=== PATIENT | female | born 1965 | race Caucasian/White ===

== ENCOUNTER 2020-07-23 05:20 | Inpatient (IN) ==
--- NOTE | 2020-06-28 13:34 | PAT Medication Instructions ---
Medication Instructions Date of Service June 28, 2020 Home Medications duloxetine [Cymbalta] 30 mg PO PM duloxetine [Cymbalta] 60 mg PO QAM levothyroxine 25 mcg PO QAM meloxicam [Mobic] 15 mg PO QAM pregabalin [Lyrica] 100 mg PO 1200 pregabalin [Lyrica] 150 mg PO AMPM trazodone 50 mg PO HS ASK your surgeon for instructions meloxicam [Mobic] 15 mg PO QAM Take morning of surgery With a small sip of water, OTHERWISE NOTHING TO EAT OR DRINK AFTER MIDNIGHT: duloxetine [Cymbalta] 60 mg PO QAM levothyroxine 25 mcg PO QAM pregabalin [Lyrica] 150 mg PO AMPM Take evening before surgery duloxetine [Cymbalta] 30 mg PO PM pregabalin [Lyrica] 150 mg PO AMPM trazodone 50 mg PO HS Other Notes If you have any questions please call us at [phone] or [phone] or [phone] or [phone]
--- NOTE | 2020-07-01 07:57 | History & Physical Report ---
Date of Service July 01, 2020 date of surgery: 07/23/20 procedure: Bilateral Total Knee Arthroplasty Assessment & Plan (1) Degenerative arthritis of knee, bilateral: Risks and benefits of procedure discussed in detail today, patient would like to proceed with Bilateral total knee replacements at [facility] as scheduled. will obtain medical clearance from Dr Urrutia prior to surgery as well as obtain PATs at [facility]. Will place on Xarelto x 1 month post op, f/u 2 weeks post op for routine post-operative care and x-ray, sooner if having any problems. will make arrangements for HHPT at the time of discharge. At this point in time, has failed conservative measures and would like to proceed with surgical intervention. The risks and benefits have been discussed including, but not limited to, risk of infection, nerve injury, stiffness, loss of motion, failure to improve, etc. Reasonable outcomes and options of treatment were discussed. An explanation of appropriate alternatives to the procedure that may be advantageous were discussed and their risks and benefits, as well as the risks and benefits of not proceeding with treatment. I offered to answer any additional inquiries concerning the treatment involved. All the patient's questions were answered. The patient is agreeable, understanding of the treatment plan and alternatives, and wishes to proceed with the treatment plan. History of Present Illness Chief Complaint: bilateral knee pain Primary Care Provider: NO PCP Joyce is a 55 year old female who complains of bilateral knee pain, presents for pre-op evaluation prior to bilateral total knee replacements by dr Thomas at [facility]. she complains of pain, crepitus, decreased range of motion, instability a nd stiffness in both knees. she states that the symptoms have been chronic and non-traumatic. she states that the symptoms occur constantly with intermittent worsening. Currently the patient states that the symptoms are moderate-severe. The pain is described as aching, sharp and throbbing. The symptoms occur continuously. The symptoms are aggravated by ascending stairs, daily activities, first steps while awake walking. Prior NSAIDs include Ibuprofen and Aleve. Prior pain medications include Tylenol. she has been treated with previous visco injections in the past without much relief. she has had prior physical therapy. Allergies Allergy/AdvReac Type Severity Reaction Status Date / Time morphine Allergy Hives Verified 06/21/20 09:03 Home Medications Home Medications Medication Instructions Recorded Confirmed Type duloxetine [Cymbalta] 30 mg PO PM 06/21/20 06/21/20 History duloxetine [Cymbalta] 60 mg PO QAM 06/21/20 06/21/20 History levothyroxine 25 mcg PO QAM 06/21/20 06/21/20 History meloxicam [Mobic] 15 mg PO QAM 06/21/20 06/21/20 History pregabalin [Lyrica] 100 mg PO 1200 06/21/20 06/21/20 History pregabalin [Lyrica] 150 mg PO AMPM 06/21/20 06/21/20 History trazodone 50 mg PO HS 06/21/20 06/21/20 History Past Med/Surg History Medical History Cervical cancer in 's > hyster Chronic back pain Fibromyalgia Fusion of spine thinks it was C1-4. up and down is fine. side to side limted Hypothyroidism Osteoarthritis Seasonal allergies Seizure childhood> none since > grand mal Slow to wake up after anesthesia Temporomandibular joint disorder clicking not locking Surgical History History of colonoscopy History of hysterectomy History of tooth extraction Hx of bilateral oophorectomy Hx of eye surgery for lowering pressure in both eyes Social History Smoking Status: Former smoker Smoking End Date: nov 2019; Second Hand Exposure: No; Do You Dip or Chew Tobacco: No; Tobacco Cessation Education Requested by Patient: No Hx Alcohol Use: Yes Alcohol type: wine Hx Substance Use: No Preferred Language: Portuguese Communication Ability: Effective [employer] Media Specialist Required: No Beliefs That Will Affect Care: None Current Living Situation: Spouse Other Information That Helps Us Care for You: No Feels Safe at Home: Yes Safety Concerns: Feels Safe At This Time Review of Systems Review of Systems: All systems reviewed & are unremarkable except as noted in HPI & below Constitutional: no fever, no chills and no sweats Respiratory: no cough and no dyspnea Cardiovascular: no chest pain, no dyspnea and no orthopnea Gastrointestinal: no abdominal pain, no nausea and no vomiting Musculoskeletal: as per Subjective / HPI Physical Exam Physical Exam: Ht: 5ft 2in Wt: 85.275kg BP: 124/84 Constitutional: WD/WN, vitals as above no acute distress Respiratory: normal respiratory effort, lungs clear to auscultation no respiratory distress, no labored breathing and does not use accessory muscles Cardiovascular: RRR, no murmur, no edema Gastrointestinal (Abdomen): normal bowel sounds, soft, nontender, no hepatosplenomegaly Musculoskeletal: Bilateral knee Physical exam Overall she has varus alignment bilaterally, there is no atrophy or ecchymosis noted, +1 suprapatellar effusion in both knees, positive tenderness to both medial and lateral joint lines both knees. negative patellar apprehension, positive crepitation noted to both knees with active ROM. bilateral knees stable to valgus and varus stress, marley negative, posterior drawer negative. Range of motion right knee 0/3/110, left knee 0/3/115. lower extremities are neurovascularly intact, calf soft and non tender, DP pulse +2 bilaterally. Results & Data Results & Data ([facility]) Diagnostic Findings Bilateral Knee X-ray: bilateral knee series confirms degenerative changes bilateral knees, greatest medial compartments and patellofemoral joints, showing joint space narrowing, osteophyte formation and subchondral sclerosis. no acute bony pathology noted.
--- NOTE | 2020-07-01 12:40 | Anesthesiology Consultation ---
Date of Service July 01, 2020 Assessment & Plan (1) Encounter for pre-operative examination: COVID Status: As of 07/01 assessment, patient denies travel to endemic area, known exposure/sick contacts, or symptoms of COVID19. Patient instructed that they and their household members must follow strict social distancing guidelines, wear a mask in public and avoid travel for 14 days prior to surgery. Preoperative COVID19 testing to be completed prior to surgery per surgeon's arra ngements. Patient made aware to self-isolate as much as possible between COVID testing and surgery. Chart Review Chart Review: Acceptable Risk for Surgery (pending surgeon ordered PCP clearance 07/03) and Patient seen in Pre Admission Testing Teaching & Discussion Instructed NPO after midnight before surgery, except medications with 15 cc of water. Medication instructions provided according to the PAT guidelines. History Surgery Operation Date: 07/23/20 07:15 Proposed Procedures p Bilateral Total Knee Arthroplasty - Santos Thomas DO Height/Weight Height: 5 ft 2 in Weight: 88 kg Allergies Allergy/AdvReac Type Severity Reaction Status Date / Time morphine Allergy Hives Verified 06/21/20 09:03 Medications Home Medications Medication Instructions Recorded Confirmed Last Taken duloxetine [Cymbalta] 30 mg PO PM 06/21/20 06/21/20 Unknown duloxetine [Cymbalta] 60 mg PO QAM 06/21/20 06/21/20 Unknown levothyroxine 25 mcg PO QAM 06/21/20 06/21/20 Unknown meloxicam [Mobic] 15 mg PO QAM 06/21/20 06/21/20 Unknown pregabalin [Lyrica] 100 mg PO 1200 06/21/20 06/21/20 Unknown pregabalin [Lyrica] 150 mg PO AMPM 06/21/20 06/21/20 Unknown trazodone 50 mg PO HS 06/21/20 06/21/20 Unknown Past Medical History Medical History Cervical cancer in 20's > hyster Chronic back pain Fibromyalgia Hypothyroidism Osteoarthritis Seasonal allergies Seizure childhood> 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 Limited ROM. History of colonoscopy History of hysterectomy History of tooth extraction Hx of bilateral oophorectomy Hx of eye surgery for lowering pressure in both eyes Past Anesthesia History No Hx of Anesthesia Complications and No Family Hx of Anesthesia Complications "slow to wake," no h/o reintubation or ICU stay/prolonged stay History of PONV No Hx of PONV and No Hx of Motion Sickness Social History Smoking Status: Former smoker Do You Dip or Chew Tobacco: No Smoking End Date: nov 2019 Hx Alcohol Use: Yes Alcohol type: wine alcohol intake frequency: a few times a month Hx Substance Use: No substance use type: does not use Review of Systems Pt denies any recent chest pain, shortness of breath, palpitations, cough, fever, URI, or uncontrolled acid reflux. Physical Exam Vital Signs BP: 139/86 P: 69bpm SPO2: 98% RA T: 98.0 F R: 16 ENMT Mouth: + dentures (full upper) and + small oral opening; no chipped teeth and no loose teeth Thyromental Distance: < 3.5 Finger Breadths (3) Mallampati Class: II Neck normal visual inspection and + limited neck extension Respiratory normal respiratory effort Auscultation: lungs clear to auscultation bilaterally Cardiovascular Rate/Rhythm: regular rate and regular rhythm Heart Sounds: no murmur Extremities: no edema Testing Laboratory Results 07/01/20 12:50 07/01/20 12:50 PT 10.2 Seconds (9.0-12.0) 07/01/20 12:50 INR 1.0 (0.9-1.1) 07/01/20 12:50 APTT 26.7 Seconds (21.0-31.0) 07/01/20 12:50 Hemoglobin A1c 5.6 % (4.5-5.6) 07/01/20 12:50 Urine Color Yellow 07/01/20 12:50 Urine Appearance Clear (Clear) 07/01/20 12:50 Urine pH 5.0 (4.5-7.5) 07/01/20 12:50 Ur Specific [place] 1.019 (1.000-1.030) 07/01/20 12:50 Urine Protein Negative (Negative) 07/01/20 12:50 Urine Glucose (UA) Negative (Negative) 07/01/20 12:50 Urine Ketones Negative (Negative) 07/01/20 12:50 Urine Nitrite Negative (Negative) 07/01/20 12:50 Ur Leukocyte Esterase Negative (Negative) 07/01/20 12:50 Blood Type A Positive 07/01/20 12:50 Antibody Screen NEGATIVE 07/01/20 12:50 07/01/20 12:50 Urine Culture - Final Urine,Clean Catch Three types of organisms present, all low counts probable skin keila. No further identifications or sensitivities to follow. Electrocardiogram Date: 07/01/20 Findings: + NSR @ (66bpm) Chest X-Ray Date: 07/01/20 Findings: + NAD
--- NOTE | 2020-07-01 13:32 | XRay Report ---
XR chest Pre-admission PA/Lat CLINICAL HISTORY: Preoperative chest COMPARISON STUDY: No previous studies for comparison. FINDINGS: The cardiac and mediastinal contours are normal. There is no evidence of focal pulmonary co nsolidation. There is no evidence of failure. No pleural effusions are visualized.[Postsurgical [place] es are present within the lower cervical spine. IMPRESSION: No active disease in the chest. ACT 112: Negative or not required by law. Electronically signed by: Gilson Whittington M.D. 07/01/2020 1:31 PM
[2020-07-01 14:02] LABS: Basophils # (auto) 0.02 K/uL (0-0.2); Basophils % (auto) 0.4 %; Eosinophils # (auto) 0.07 K/uL (0-0.5); Eosinophils % (auto) 1.4 %; Hematocrit (blood only) 39.4 % (37-47); Hemoglobin 13.2 g/dL (12.0-16.0); Immature Granulocytes # (auto) 0.01 K/uL (0.00-0.02); Immature Granulocytes % (auto) 0.2 %; Lymphocytes # (auto) 1.83 K/uL (1.2-3.4); Lymphocytes % (auto) 35.5 %; Mean Corpuscular Hemoglobin 31.2 pg (25-34); Mean Corpuscular Hgb Conc 33.5 g/dL (32-36); Mean Corpuscular Volume 93.1 fL (80-100); Mean Platelet Volume 10.4 fL (7.4-10.4); Monocytes # (auto) 0.24 K/uL (0.11-0.59); Monocytes % (auto) 4.7 %; Neutrophils # (auto) 2.98 K/uL (1.4-6.5); Neutrophils % (auto) 57.8 %; Platelet Count 281 K/uL (130-400); RDW Coefficient of Variation 13.6 % (11.5-14.5); RDW Standard Deviation 46.5 fL (36.4-46.3); Red Blood Count 4.23 M/uL (4.2-5.4); White Blood Count 5.15 K/uL (4.8-10.8)
[2020-07-01 14:10] LABS: Estimated Average Glucose 114 mg/dl; Hemoglobin A1C 5.6 % (4.5-5.6)
[2020-07-01 14:22] LABS: Partial Thromboplastin Time 26.7 Seconds (21.0-31.0); Prothrombin Time 10.2 Seconds (9.0-12.0)
[2020-07-01 14:32] LABS: Appearance Urine Clear (Clear); Bilirubin Urine Negative (Negative); Blood Urine Negative (Negative); Color Urine Yellow; Glucose Urine UA Negative (Negative); Ketones Urine Negative (Negative); Leukocyte Esterase Urine Negative (Negative); Nitrite Urine Negative (Negative); Protein Urine Negative (Negative); Specific Gravity Urine 1.019 (1.000-1.030); Urobilinogen Urine Negative (Negative)
[2020-07-01 14:48] LABS: Albumin Level 3.2 gm/dl (3.4-5.0); BUN Creatinine Ratio 13.4 (10-20); Calcium 9.2 mg/dl (8.5-10.1); Creatinine Clr Calc Pharmacy 81.8 ml/min; Est GFR (African American) 95.4; Est GFR (Non-African American) 82.3; Potassium 3.7 mmol/L (3.5-5.1)
--- NOTE | 2020-07-01 15:22 | Electrocardiogram Report ---
Test Reason : Blood Pressure : / mmHG Vent. Rate : 066 BPM Atrial Rate : 066 BPM P-R Int : 136 ms QRS Dur : 084 ms QT Int : 420 ms P-R-T Axes : 045 061 053 degrees QTc Int : 440 ms Normal sinus rhythm Normal ECG No previous ECGs available Confirmed by Jarocho Pitts ([id number]) on 07/01/2020 3:21:36 PM Referred By: Santos Thomas Confirmed By:Jarocho Pitts
[2020-07-23] MEDS ORDERED: LR 500ML BOLUS, THEN 15ML/HR IV SCH (06:00)
[2020-07-23] MEDS ORDERED: METOCLOPRAMIDE HCL 10 MG TABLET PO SCH (06:00)
[2020-07-23] MEDS ORDERED: TRANEXAMIC ACID 1,000 MG **IV Pre-op IV SCH (06:00)
[2020-07-23] MEDS ORDERED: ACETAMINOPHEN 500 MG TAB PO SCH (06:00)
[2020-07-23] MEDS ORDERED: ceFAZolin 2000MG 2,000 MG/15 ML SYR IV SCH (06:00)
[2020-07-23] MEDS ORDERED: TRANEXAMIC ACID 1,000 MG **IV Intra-op IV SCH (06:00)
[2020-07-23] MEDS ORDERED: GABAPENTIN 600 MG DOSE PO SCH (06:00)
[2020-07-23] MEDS ORDERED: CeleBREX 200 MG CAP PO SCH (06:00)
[2020-07-23] MEDS ORDERED: dexAMETHasone 4 MG TAB PO SCH (06:00)
[2020-07-23] MEDS ORDERED: FAMOTIDINE 20 MG TAB PO SCH (06:00)
[2020-07-23] MEDS ORDERED: ROPIVACAINE 0.5% HCL/PF 150 MG, BUPIVACAINE 0.5% MPF 30 ML, EPINEPHrine 30MG/30ML (OR U... INSTIL SCH (06:00)
[2020-07-23] MEDS ORDERED: ROPIVACAINE 0.5% 5 MG/ML 30 ML VIAL ONE (06:26)
[2020-07-23] MEDS ORDERED: BUPIVACAINE 0.5 % 5 MG/1 ML PF 10ML VIAL ONE (06:26)
[2020-07-23] MEDS ORDERED: BUPIVACAINE 0.25% 30 ML VIAL ONE (06:27)
[2020-07-23] MEDS ORDERED: MIDAZOLAM HCL 1 MG/ML 2ML VIAL ONE ×2 (06:45→06:53)
[2020-07-23] MEDS ORDERED: PROPOFOL IV EMULSION 10 MG/ML 20 ML VIAL IV ONE ×5 (06:45→15:45)
[2020-07-23] MEDS ORDERED: ONDANSETRON INJ 2 MG/ML 2 ML VIAL ONE (06:45)
[2020-07-23] MEDS ORDERED: LIDOCAINE HCL 2% 2 ML VIAL/AMP(20MG/ML) INFIL ONE (06:45)
[2020-07-23] MEDS ORDERED: fentaNYL citrate 100 MCG/2 ML VIAL ONE (06:45)
--- NOTE | 2020-07-23 10:36 | History & Physical Bridge Note ---
Date of Service July 23, 2020 History & Physical Bridge Note I have examined the patient, reviewed the History & Physical and in the interval since the performance of the History & Physical I have noted the following changes of clinical significance: no changes noted
[2020-07-23] MEDS ORDERED: ePHEDrine sulfate 50 MG/ML AMP IV PRN (12:12)
[2020-07-23] MEDS ORDERED: fentaNYL citrate 100 MCG/2 ML VIAL IV PRN (12:12)
[2020-07-23] MEDS ORDERED: ONDANSETRON INJ 2 MG/ML 2 ML VIAL IV PRN ×2 (12:12→17:27)
[2020-07-23] MEDS ORDERED: ATROPINE SULFATE 0.1 MG/ML 10ML SYR IV PRN (12:12)
[2020-07-23] MEDS ORDERED: ORTHO JOINT ANESTHETIC ONE (12:14)
[2020-07-23] MEDS ORDERED: BACITRACIN INJ 50,000 UNIT VIAL ONE (12:14)
--- NOTE | 2020-07-23 15:29 | Operative Report ---
Post Operative Report Pre & Post Diagnosis Operation Date: 07/23/20 07:15 Pre-Op Diagnosis: Bilateral Knee Primary Osteoarthritis Post-Op Diagnosis: Bilateral Knee Primary Osteoarthritis I identified the patient and participated in the time-out.: Yes Procedure Utilizing [employer] persona medial constrained total knee arthroplasty right size 8 medial constrained narrow CR femur tibia size D poly-size 10 medial constrained left knee patella 28 x 8 oval size 7 CR narrow tibia size D Opera poly-size 10 medial constrained patella 25 x 8 ovaltion Date: 07/23/20 07:15 Actual Procedures p Bilateral Total Knee Arthroplasty(Bilateral) - Santos Thomas DO Surgeon Santos Thomas DO Shove Up AUTUMN Solomon Estimated Blood Loss 10 (5ml each side) Findings Consistent with Post-Op Diagnosis Patient presents with bilateral severe DJD varus alignment 8 degree flexion contracture right knee 10 degree flexion contracture left knee eburnated [id number] medial compartment [place]co femoral compartment lateral compartment marginal osteophyte subchondral sclerosis as well as moderate to large effusions bilaterally Specimens Bone and cartilage Drains Medium bore Hemovac Anesthesia Type MAC Spinal Regional Complications none Disposition Accompanied Patient To Recovery: No Disposition: Recovery Room Indications Patient presents after failing attempts at conservative management physical therapy anti-inflammatories relative rest activity modification corticosteroid injections Visco supplementation. Description of Procedure After proper prepping and draping of the bilateral lower extremities, an anterior midline incision was made over the region of the extensor extensor mechanism of the left knee. After meticulous hemostasis was obtained and maintained in subcutaneous tissues a medial parapatellar incision was made The patella was subluxed lateralward the medial lateral gutter were cleaned from any hypertrophic synovitis and scar tissue of the distal femoral block was placed and the distal femoral osteotomy cut was made subsequently the chamfers anterior and posterior osteotomy cuts were made utilizing the 4-in-1 block the tibia was subsequently subluxed anteriorward medial and ateral meniscal remnants were excised in their entirety remnants of the anterior and posterior cruciate ligaments were excised in their entirety excellent exposure of the proximal tibia was obtained the tibial osteotomy guide was placed on the proximal tibial osteotomy cut was made once again the knee was irrigated with copious amounts of sterile saline solution the patella was subsequently everted lateralward thickened scar tissue around the patella was removed the patella was subsequently cut utilizing a freehand technique and was drilled prepared for final preparation and placement of patella socially flexion-extension gaps were checked and the equal and symmetric trials were placed to the appropriate femoral and tibial trials with poly-spacer being placed for equal flexion and extension gaps and full range of motion including extension to 0 and flexion to 140 the trial components after having been taken to recovery range of motion was subsequently removed meticulous hemostasis was obtained and maintained subsequently a knee block injection of joint cocktail including ropivacaine 0.5% 150 mg. Bupivacaine 0.5% epinephrine 1-200,030 mL's toradol 30 mg dexamethasone 4 mg ketamine 10 mg clonidine 100 micrograms normal saline solution 30 mg was i nfiltrated into the soft tissues of the posterior knee medial lateral gutters and periosteal synovium special attention was paid to protect neurovascular structures at all times subsequently trial components having been removed the knee was irrigated with sterile saline solution. debris was removed the proximal tibia was subsequently prepared and was made ready for the placement of the tibial component tibial component was also cemented and tamped into position the femoral component was subsequently placed and cemented in the position the patellar component was subsequently cemented in position because hemostasis once again obtained and maintained wound having been thoroughly irrigated with debridement and debridement lavage was performed as well as a medial parapatellar incision closed with #1 Vicryl in interrupted fashion subcutaneous was closed with #2 Vicryl skin was closed with skin clips Next, an anterior midline incision was made over the region of the extensor extensor mechanism of the right knee. After meticulous hemostasis was obtained and maintained in subcutaneous tissues a medial parapatellar incision was made The patella was subluxed lateralward the medial lateral gutter were cleaned from any hypertrophic synovitis and scar tissue of the distal femoral block was placed and the distal femoral osteotomy cut was made subsequently the chamfers anterior and posterior osteotomy cuts were made utilizing the 4-in-1 block the tibia was subsequently subluxed anteriorward medial and ateral meniscal remnants were excised in their entirety remnants of the anterior and posterior cruciate ligaments were excised in their entirety excellent exposure of the proximal tibia was obtained the tibial osteotomy guide was placed on the proximal tibial osteotomy cut was made once again the knee was irrigated with copious amounts of sterile saline solution the patella was subsequently everted lateralward thickened scar tissue around the patella was removed the patella was subsequently cut utilizing a freehand technique and was drilled prepared for final preparation and placement of patella socially flexion-extension gaps were checked and the equal and symmetric trials were placed to the appropriate femoral and tibial trials with poly-spacer being placed for equal flexion and extension gaps and full range of motion including extension to 0 and flexion to 140 the trial components after having been taken to recovery range of motion was subsequently removed meticulous hemostasis was obtained and maintained subsequently a knee block injection of joint cocktail including ropivacaine 0.5% 150 mg. Bupivacaine 0.5% epinephrine 1-200,030 mL's toradol 30 mg dexamethasone 4 mg ketamine 10 mg clonidine 100 micrograms normal saline solution 30 mg was infiltrated into the soft tissues of the posterior knee medial lateral gutters and periosteal synovium special attention was paid to protect neurovascular structures at all times subsequently trial components having been removed the knee was irrigated with sterile saline solution. debris was removed the proximal tibia was subsequently prepared and was made ready for the placement of the tibial component tibial component was also cemented and tamped into position the femoral component was subsequently placed and cemented in the position the patellar component was subsequently cemented in position because hemostasis once again obtained and maintained wound having been thoroughly irrigated with debridement and debridement lavage was performed as well as a medial parapatellar incision closed with #1 Vicryl in interrupted fashion subcutaneous was closed with #2 Vicryl skin was closed with skin clips.. PA-C was necessary for prepping and drapping as well as wound closure of deep fascia Sub cutaneous tissue and skin and was necessary for the case. A sterile compressive dressings were placed, patient was taken to recovery in stable condition of report dictated by William I attest to the content of the Intraoperative Record and any orders documented therein. Any exceptions are noted below. I attest to the content of the Intraoperative Record and any orders documented therein. Any exceptions are noted below.
--- NOTE | 2020-07-23 16:44 | XRay Report ---
XR knee RT 1 or 2V routine, XR knee LT 1 or 2V routine HISTORY: 55 years-old Female Surgical Post Op bilateral knee total joint arthroplasties COMPARISON: None TECHNIQUE: 2 views of the bilateral knees FINDINGS: RIGHT: Total joint arthroplasty and patella resurfacing. No acute fracture, dislocation or opaque foreign jaime dy. Expected postsurgical soft tissue swelling and deep tissue air with surgical drainage catheter. LEFT: Total joint arthroplasty and patella resurfacing. No acute fracture, dislocation or opaque foreign jaime dy. Expected postsurgical soft tissue swelling and deep tissue air with surgical drainage catheter. IMPRESSION: Bilateral knee total joint arthroplasties with expected postoperative changes. ACT 112: Negative or not required by law. The above report was generated using voice recognition software. It may contain grammatical, syntax o r spelling errors. Electronically signed by: Krishan Gomez M.D. 07/23/2020 4:42 PM
--- NOTE | 2020-07-23 16:56 | Anesthesiology Progress Note ---
Date of Service July 23, 2020 Anesthesia Post Procedure Vital Signs Vital Signs: Temp Pulse Pulse Resp BP BP Pulse Ox 07/23/20 16:55 36.4 C L 67 17 106/70 99 07/23/20 16:45 63 13 110/76 98 07/23/20 16:35 68 14 115/74 97 07/23/20 16:25 80 15 110/70 100 07/23/20 16:15 79 18 123/89 96 07/23/20 16:06 36.3 C L 89 22 128/73 100 07/23/20 12:02 36.4 C L 85 18 130/78 97 07/23/20 06:48 62 18 139/77 98 07/23/20 06:03 36.6 C 72 18 139/86 94 Pain Intensity Bilateral Knee: Pain Intensity: 0 Transfer of Care Handoff Completed per policy Notes Mental Status: alert / awake / arousable Patient Amnestic to Procedure: Yes Nausea / Vomiting: adequately controlled Pain: adequately controlled Airway Patency, RR, SpO2: stable & adequate BP & HR: stable & adequate Hydration State: stable & adequate Neuraxial Anesthesia: was administered and sensory block is resolving Anesthetic Complications: no major complications apparent
[2020-07-23] MEDS ORDERED: NALOXONE HCL 0.4 MG/1 ML VIAL/CARP IV PRN (17:27)
[2020-07-23] MEDS ORDERED: MAGNESIUM HYDROXIDE SUSP 30 ML UDC PO PRN (17:27)
[2020-07-23] MEDS ORDERED: METOCLOPRAMIDE HCL INJ 5 MG/ML 2 ML VIAL IV PRN (17:27)
[2020-07-23] MEDS ORDERED: bisacodyL 10 MG SUPP PR PRN (17:27)
[2020-07-23] MEDS ORDERED: diphenhydrAMINE Capsule 25 MG CAP PO PRN (17:27)
[2020-07-23] MEDS: KETOROLAC 30 MG/ML VIAL IV SCH (18:38)
[2020-07-23] MEDS: oxyCODONE HCL IR 5 MG TAB (IMMEDIATE RELEASE) PO PRN (19:54)
[2020-07-23] MEDS: SODIUM CHLORIDE 0.9% 1000ML 1,000 ML IV SCH (19:54)
[2020-07-23] MEDS: SENNA 8.6 MG TAB PO SCH (21:16)
[2020-07-23] MEDS: traZODone HCL 50 MG TAB PO SCH (21:16)
[2020-07-23] MEDS: DOCUSATE SODIUM 100 MG CAP PO SCH (21:16)
[2020-07-23] MEDS: DULoxetine HCL 30 MG CAP PO SCH (21:16)
[2020-07-23] MEDS: PREGABALIN 150 MG CAP PO SCH (21:19)
[2020-07-23] MEDS: ceFAZolin 2000MG 2,000 MG/15 ML SYR IV SCH (21:20)
[2020-07-23] MEDS: HYDROmorphone INJ 1 MG/ML SYRINGE IV PRN (22:07)
[2020-07-24] MEDS: KETOROLAC 30 MG/ML VIAL IV SCH ×3 (00:25→12:40)
[2020-07-24] MEDS: oxyCODONE HCL IR 5 MG TAB (IMMEDIATE RELEASE) PO PRN ×5 (02:57→21:44)
[2020-07-24] MEDS: ceFAZolin 2000MG 2,000 MG/15 ML SYR IV SCH (05:34)
[2020-07-24] MEDS: SODIUM CHLORIDE 0.9% 1000ML 1,000 ML IV SCH (05:35)
[2020-07-24] MEDS: LEVOTHYROXINE SODIUM 25 MCG TABLET PO SCH (05:35)
[2020-07-24 06:10] LABS: Hematocrit (blood only) 36.3 % (37-47); Hemoglobin 11.9 g/dL (12.0-16.0); Mean Corpuscular Hemoglobin 30.4 pg (25-34); Mean Corpuscular Hgb Conc 32.8 g/dL (32-36); Mean Corpuscular Volume 92.6 fL (80-100); Mean Platelet Volume 9.7 fL (7.4-10.4); Platelet Count 304 K/uL (130-400); RDW Coefficient of Variation 13.4 % (11.5-14.5); RDW Standard Deviation 45.6 fL (36.4-46.3); Red Blood Count 3.92 M/uL (4.2-5.4); White Blood Count 10.88 K/uL (4.8-10.8)
[2020-07-24 06:42] LABS: BUN Creatinine Ratio 12.4 (10-20); Calcium 8.4 mg/dl (8.5-10.1); Creatinine Clr Calc Pharmacy 60.5 ml/min; Est GFR (African American) 65.9; Est GFR (Non-African American) 56.9; Potassium 4.2 mmol/L (3.5-5.1)
--- NOTE | 2020-07-24 07:06 | Orthopedic Progress Note ---
Date of Service July 24, 2020 Assessment & Plan (1) History of total bilateral knee replacement: POD #1 s/p Bilateral TKA pt/ot dvt proph with SLOAN/SCD/Xarelto x 1 month plan for d/c home with HHPT when stable Admission and Anticipated Discharge Date Admission Date: July 23, 2020 Subjective POD #1 s/p bilateral TKA Review of Systems Constitutional: no fever, no chills and no sweats Respiratory: no cough and no dyspnea Cardiovascular: no chest pain and no dyspnea Gastrointestinal: no abdominal pain, no nausea and no vomiting Physical Exam Physical Exam: Vital Signs Temp 36.7 C 07/24/20 02:30 Pulse 62 07/24/20 02:30 Resp 16 07/24/20 02:30 BP 115/76 07/24/20 02:30 Pulse Ox 95 07/24/20 02:30 Intake & Output 07/23/20 07/24/20 07/24/20 18:59 06:59 18:59 Intake Total 1750 / 2818.333 1068.333 / 2818.33 3 Output Total 10 475 / 485 Balance 1740 / 2333.333 593.333 / 2333.333 Weight 88.6 kg Intake: IV 1100 / 2168.333 1068.333 / 2168.33 3 Lr 1,000 ml @ 15 mls/hr IV . 1000 / 1000 Q24H [facility] Rx#:[id number] Nss 1000ML 1,0 00 ml @ 100 mls/ 968.333 / 968.333 hr IV .Q10H [facility] Rx#:[id number] TRANEXAMIC ACI D / 0.7% NACL 1, 100 / 200 100 / 200 000 mg In 100 ml @ 600 mls/hr IV TODAY@0600 [facility] Rx#:[id number] IV Perioperative 650 / 650 Output: Estimated Blood Loss 10 / 10 Drain Output 475 / 475 Left Knee Hemo vac 200 / 200 Right Knee Hem ovac 275 / 275 Constitutional: WD/WN, vitals as above no acute distress Musculoskeletal: Bilateral lower extremities: NVDI, calf SNT, negative is[place] sign. DP palpable, able to wiggle toes/ankle movement without difficulty. dressings are clean dry and intact. Results & Data ([facility]) Vital Signs (Past 12 Hours) Vital Signs Temp Pulse Resp BP Pulse Ox 07/24/20 02:30 36.7 C 62 16 115/76 95 07/24/20 00:25 95/61 L 07/23/20 23:39 36.5 C 65 16 95/62 L 95 07/23/20 19:35 36.5 C 69 15 133/79 100 Laboratory Results Laboratory Results WBC 10.88 K/uL (4.8-10.8) H 07/24/20 05:44 RBC 3.92 M/uL (4.2-5.4) L 07/24/20 05:44 Hgb 11.9 g/dL (12.0-16.0) L 07/24/20 05:44 Hct 36.3 % (37-47) L 07/24/20 05:44 MCV 92.6 fL (80-100) 07/24/20 05:44 MCH 30.4 pg (25-34) 07/24/20 05:44 MCHC 32.8 g/dL (32-36) 07/24/20 05:44 RDW Std Deviation 45.6 fL (36.4-46.3) 07/24/20 05:44 RDW Coeff of Ni 13.4 % (11.5-14.5) 07/24/20 05:44 Plt Count 304 K/uL (130-400) 07/24/20 05:44 MPV 9.7 fL (7.4-10.4) 07/24/20 05:44 Immature Gran % (Auto) 0.2 % 07/01/20 12:50 Neut % (Auto) 57.8 % 07/01/20 12:50 Lymph % (Auto) 35.5 % 07/01/20 12:50 [place] % (Auto) 4.7 % 07/01/20 12:50 Eos % (Auto) 1.4 % 07/01/20 12:50 Baso % (Auto) 0.4 % 07/01/20 12:50 Neut # (Auto) 2.98 K/uL (1.4-6.5) 07/01/20 12:50 Lymph # (Auto) 1.83 K/uL (1.2-3.4) 07/01/20 12:50 [place] # (Auto) 0.24 K/uL (0.11-0.59) 08/24/20 12:50 Eos # (Auto) 0.07 K/uL (0-0.5) 07/01/20 12:50 Baso # (Auto) 0.02 K/uL (0-0.2) 07/01/20 12:50 Immature Gran # (Auto) 0.01 K/uL (0.00-0.02) 07/01/20 12:50 PT 10.2 Seconds (9.0-12.0) 07/01/20 12:50 INR 1.0 (0.9-1.1) 07/01/20 12:50 APTT 26.7 Seconds (21.0-31.0) 07/01/20 12:50 PTT Ratio 1.0 07/01/20 12:50 Sodium 140 mmol/L (136-145) 07/24/20 05:44 Potassium 4.2 mmol/L (3.5-5.1) 07/24/20 05:44 Chloride 108 mmol/L (98-107) H 07/24/20 05:44 Carbon Dioxide 27 mmol/L (21-32) 07/24/20 05:44 Anion Gap 5.0 (3-11) 07/24/20 05:44 BUN 14 mg/dl (7-18) 07/24/20 05:44 Creatinine 1.10 mg/dl (0.6-1.2) 07/24/20 05:44 Est Cr Clr Drug Dosing 60.5 ml/min 07/24/20 05:44 Est GFR ( Amer) 65.9 07/24/20 05:44 Est GFR (Non-Af Amer) 56.9 07/24/20 05:44 BUN/Creatinine Ratio 12.4 (10-20) 07/24/20 05:44 Glucose 124 mg/dl (70-99) H 07/24/20 05:44 Estimat Average Glucose 114 mg/dl 07/01/20 12:50 Hemoglobin A1c 5.6 % (4.5-5.6) 07/01/20 12:50 Calcium 8.4 mg/dl (8.5-10.1) L 07/24/20 05:44 Albumin 3.2 gm/dl (3.4-5.0) L 07/01/20 12:50 Urine Color Yellow 07/01/20 12:50 Urine Appearance Clear (Clear) 07/01/20 12:50 Urine pH 5.0 (4.5-7.5) 07/01/20 12:50 Ur Specific New Site 1.019 (1.000-1.030) 07/01/20 12:50 Urine Protein Negative (Negative) 07/01/20 12:50 Urine Glucose (UA) Negative (Negative) 07/01/20 12:50 Urine Ketones Negative (Negative) 07/01/20 12:50 Urine Blood Negative (Negative) 07/01/20 12:50 Urine Nitrite Negative (Negative) 07/01/20 12:50 Urine Bilirubin Negative (Negative) 07/01/20 12:50 Urine Urobilinogen Negative (Negative) 07/01/20 12:50 Ur Leukocyte Esterase Negative (Negative) 07/01/20 12:50 Blood Type A Positive 07/01/20 12:50 Antibody Screen NEGATIVE 07/01/20 12:50 Diagnostic Findings XR knee RT 1 or 2V routine, XR knee LT 1 or 2V routine HISTORY: 55 years-old Female Surgical Post Op bilateral knee total joint arthroplasties COMPARISON: None TECHNIQUE: 2 views of the bilateral knees FINDINGS: RIGHT: Total joint arthroplasty and patella resurfacing. No acute fracture, dislocation or opaque foreign body. Expected postsurgical soft tissue swelling and deep tissue air with surgical drainage catheter. LEFT: Total joint arthroplasty and patella resurfacing. No acute fracture, dislocation or opaque foreign body. Expected postsurgical soft tissue swelling and deep tissue air with surgical drainage catheter. IMPRESSION: Bilateral knee total joint arthroplasties with expected postoperative changes.
[2020-07-24] MEDS: DULoxetine HCL 60 MG CAP PO SCH (09:08)
[2020-07-24] MEDS: DOCUSATE SODIUM 100 MG CAP PO SCH ×2 (09:08→20:17)
[2020-07-24] MEDS: MULTIVITAMIN TAB PO SCH (09:08)
[2020-07-24] MEDS: PREGABALIN 150 MG CAP PO SCH ×2 (09:12→20:17)
[2020-07-24] MEDS: HYDROmorphone INJ 1 MG/ML SYRINGE IV PRN ×3 (09:29→19:08)
[2020-07-24] MEDS: PREGABALIN 100 MG CAP PO SCH (12:40)
[2020-07-24] MEDS: RIVAROXABAN 10 MG TABLET PO SCH (12:45)
[2020-07-24] MEDS: DULoxetine HCL 30 MG CAP PO SCH (20:17)
[2020-07-24] MEDS: traZODone HCL 50 MG TAB PO SCH (20:17)
[2020-07-24] MEDS: SENNA 8.6 MG TAB PO SCH (20:17)
[2020-07-25] MEDS: HYDROmorphone INJ 1 MG/ML SYRINGE IV PRN ×4 (00:02→14:13)
[2020-07-25] MEDS: oxyCODONE HCL IR 5 MG TAB (IMMEDIATE RELEASE) PO PRN ×5 (01:48→22:43)
[2020-07-25] MEDS: LEVOTHYROXINE SODIUM 25 MCG TABLET PO SCH (06:13)
[2020-07-25 06:48] LABS: Hematocrit (blood only) 34.2 % (37-47); Hemoglobin 11.1 g/dL (12.0-16.0); Mean Corpuscular Hemoglobin 30.2 pg (25-34); Mean Corpuscular Hgb Conc 32.5 g/dL (32-36); Mean Corpuscular Volume 92.9 fL (80-100); Mean Platelet Volume 9.6 fL (7.4-10.4); Platelet Count 272 K/uL (130-400); RDW Coefficient of Variation 13.7 % (11.5-14.5); RDW Standard Deviation 46.7 fL (36.4-46.3); Red Blood Count 3.68 M/uL (4.2-5.4); White Blood Count 7.05 K/uL (4.8-10.8)
[2020-07-25 07:18] LABS: BUN Creatinine Ratio 16.7 (10-20); Calcium 8.1 mg/dl (8.5-10.1); Creatinine Clr Calc Pharmacy 80.1 ml/min; Est GFR (African American) 92.7; Est GFR (Non-African American) 79.9; Potassium 3.9 mmol/L (3.5-5.1)
[2020-07-25] MEDS: DULoxetine HCL 60 MG CAP PO SCH (08:35)
[2020-07-25] MEDS: MULTIVITAMIN TAB PO SCH (08:35)
[2020-07-25] MEDS: RIVAROXABAN 10 MG TABLET PO SCH (08:35)
[2020-07-25] MEDS: DOCUSATE SODIUM 100 MG CAP PO SCH ×2 (08:35→21:12)
[2020-07-25] MEDS: PREGABALIN 150 MG CAP PO SCH ×2 (08:38→21:16)
[2020-07-25] MEDS ORDERED: KETOROLAC TROMETHAMINE 15 MG/ML VIAL IV PRN (10:50)
--- NOTE | 2020-07-25 11:02 | Orthopedic Progress Note ---
Date of Service July 25, 2020 Assessment & Plan (1) History of total bilateral knee replacement: POD #2 s/p Bilateral TKA pt/ot dvt proph with SLOAN/SCD/Xarelto x 1 month plan for d/c home with HHPT when stable, possibly later today if pain better controlled. Admission and Anticipated Discharge Date Admission Date: July 23, 2020 Subjective POD #1 s/p bilateral TKA. Doing okay, having some pain control issues. No other complaints. Denies chest pain, sob, n/v/d, light headedness Review of Systems Review of Systems: All systems reviewed & are unremarkable except as noted in HPI & below Physical Exam Physical Exam: Bilateral knees incisions are c/d/i, Prineo in place. Distally n/v status and sensation intact. Calves are soft and non tender. Toes mobile with good dorsiflexion. Constitutional: well developed and well nourished; no acute distress Results & Data ([facility]) Vital Signs (Past 12 Hours) Vital Signs Temp Pulse Pulse Resp BP Pulse Ox 07/25/20 07:51 36.7 C 82 18 104/69 97 07/24/20 23:18 36.4 C L 89 14 126/81 95
[2020-07-25] MEDS ORDERED: KETOROLAC TROMETHAMINE 15 MG/ML VIAL IV ONE (11:10)
[2020-07-25] MEDS: PREGABALIN 100 MG CAP PO SCH (11:41)
[2020-07-25] MEDS: ACETAMINOPHEN 500 MG TAB PO SCH ×2 (11:41→21:11)
[2020-07-25] MEDS: KETOROLAC 30 MG/ML VIAL IV SCH ×2 (14:56→19:57)
[2020-07-25] MEDS: oxyCODONE HCL 10 MG TABCR (OxyCONTIN) PO SCH (21:11)
[2020-07-25] MEDS: SENNA 8.6 MG TAB PO SCH (21:12)
[2020-07-25] MEDS: traZODone HCL 50 MG TAB PO SCH (21:12)
[2020-07-25] MEDS: DULoxetine HCL 30 MG CAP PO SCH (21:19)
[2020-07-26] MEDS: HYDROmorphone INJ 1 MG/ML SYRINGE IV PRN ×2 (01:15→02:34)
[2020-07-26] MEDS: KETOROLAC 30 MG/ML VIAL IV SCH ×3 (01:16→07:16)
[2020-07-26] MEDS: oxyCODONE HCL IR 5 MG TAB (IMMEDIATE RELEASE) PO PRN ×2 (05:18→11:56)
[2020-07-26] MEDS: ACETAMINOPHEN 500 MG TAB PO SCH (05:19)
[2020-07-26] MEDS: LEVOTHYROXINE SODIUM 25 MCG TABLET PO SCH (05:19)
[2020-07-26] MEDS: DULoxetine HCL 60 MG CAP PO SCH (08:20)
[2020-07-26] MEDS: DOCUSATE SODIUM 100 MG CAP PO SCH (08:20)
[2020-07-26] MEDS: MULTIVITAMIN TAB PO SCH (08:20)
[2020-07-26] MEDS: oxyCODONE HCL 10 MG TABCR (OxyCONTIN) PO SCH (08:20)
[2020-07-26] MEDS: RIVAROXABAN 10 MG TABLET PO SCH (08:20)
[2020-07-26] MEDS: PREGABALIN 150 MG CAP PO SCH (08:20)
--- NOTE | 2020-07-26 08:41 | Orthopedic Progress Note ---
Date of Service July 26, 2020 Assessment & Plan (1) History of total bilateral knee replacement: POD #3 s/p Bilateral TKA pt/ot dvt proph with SLOAN/SCD/Xarelto x 1 month Pain control is much better today after adding OxyContin. BMP pending plan for d/c home with HHPT today after PT and OT sessions Admission and Anticipated Discharge Date Admission Date: July 23, 2020 Subjective Postop day 3 status post bilateral total knee arthroplasties. Patient sitting up in bed watching TV this morning. She appears much more relaxed at this morning. She states she had a much better night and her pain control is good this morning. No new complaints. Denies shortness of breath, chest pain, lightheadedness. She is hoping to go home today. Physical Exam Physical Exam: Incisions are clean, dry, and intact. She has some bruising that has increased somewhat on the medial aspect of her left leg with some mild erythema with it. This is not overtly tender. Both knees have mild to moderate swelling consistent with surgery. Calves are soft and nontender. Neurovascular is intact. Toes are mobile. Results & Data ([facility]) Vital Signs (Past 12 Hours) Vital Signs Temp Pulse Resp BP Pulse Ox 07/26/20 06:30 36.7 C 97 H 14 107/72 96 07/25/20 23:26 36.4 C L 76 14 100/67 94
[2020-07-26 09:21] LABS: BUN Creatinine Ratio 17.5 (10-20); Calcium 8.8 mg/dl (8.5-10.1); Creatinine Clr Calc Pharmacy 75.6 ml/min; Est GFR (African American) 86.3; Est GFR (Non-African American) 74.5
--- NOTE | 2020-08-16 08:52 | Discharge Summary ---
Date of Service date of discharge: July 26, 2020 date of admission: 07-23-20 Admission HPI Per Admitting Provider Admission HPI Per Admitting Provider Joyce is a 55 year old female who complains of bilateral knee pain, presents for pre-op evaluation prior to bilateral total knee replacements by dr Thomas at [facility]. she complains of pain, crepitus, decreased range of motion, instability and stiffness in both knees. she states that the symptoms have been chronic and non-traumatic. she states that the symptoms occur constantly with intermittent worsening. Currently the patient states that the symptoms are moderate-severe. The pain is described as aching, sharp and throbbing. The symptoms occur continuously. The symptoms are aggravated by ascending stairs, daily activities, first steps while awake walking. Prior NSAIDs include Ibuprofen and Aleve. Prior pain medications include Tylenol. she has been treated with previous visco injections in the past without much relief. she has had prior physical therapy. Admission Exam Per Admitting Provider Admission Exam Per Admitting Provider Bilateral knee Physical exam Overall she has varus alignment bilaterally, there is no atrophy or ecchymosis noted, +1 suprapatellar effusion in both knees, positive tenderness to both medial and lateral joint lines both knees. negative patellar apprehension, positive crepitation noted to both knees with active ROM. bilateral knees stable to valgus and varus stress, marley negative, posterior drawer negative. Range of motion right knee 0/3/110, left knee 0/3/115. lower extremities are neurovascularly intact, calf soft and non tender, DP pulse +2 bilaterally. Principal Diagnosis bilateral knee arthritis Discharge Exam Constitutional WD/WN, vitals as above no acute distress Musculoskeletal bilateral knees: NVDI, calf SNT, negative israel sign. DP palpable, able to wiggle toes/ankle movement without difficulty. Prineo dressing clean dry and intact. expected post-operative bruising noted. Discharge Data Allergies Allergy/AdvReac Type Severity Reaction Status Date / Time morphine Allergy Hives Verified 07/27/20 15:20 Consultations 07/23/20 17:27 Consult Case Management - Discharge Planning Routine Procedures Performed Operation Date: 07/23/20 07:15 Actual Procedures p Bilateral Total Knee Arthroplasty(Bilateral) - Santos Thomas DO Ordered Studies 07/23/20 05:00 US guide needle placement Routine Hospital Course (1) History of total bilateral knee replacement: POD #3 s/p Bilateral TKA pt/ot dvt proph with SLOAN/SCD/Xarelto x 1 month Pain control is much better today after adding OxyContin. BMP pending plan for d/c home with HHPT today after PT and OT sessions Total Time Total Time Spent Total Time Spent (In Minutes): 20 Total Time Includes: Examination of the Patient, Discharge Planning, Medication Reconciliation and Communication With Other Providers Discharge Plan Discharge Items Patient Disposition: Home - Home Health Services Reason For Visit: Unilateral Primary Osteoarthritis, Right Knee, Uni Discharge Diagnosis: bilateral total knee replacements Activity: Per Instructions section Non-emergency contact: Surgeon Call non-emergency contact if: you have any medication questions, your pain is not controlled, your pain is worsening, your pain is concerning for you, you have a fever, your temperature is above 101, your wound has increased redness and your wound has increased drainage Follow-up/Referrals: PCPNATASHA [Primary Care Provider] - Diet: Regular Addtl Attending Provider Instructions: ACTIVITY RECOMMENDATIONS: SELF CARE INSTRUCTIONS AFTER TOTAL KNEE REPLACEMENT A. You may need to continue a physical therapy program after discharge from the hospital. There are several options available to you. Your doctor will assist you in selecting the best one for you. 1. An out-patient facility 2 to 3 times a week for therapy or home therapy. 2. Continue working on all exercises taught to you in the hospital. Your goals should be to increase bending of your knee to 90 degrees and beyond and to fully straighten your knee. B. You may progress at your own pace from walking with a walker or crutches to a cane; then to no assistive devices. C. Make walking a part of your daily routine. Be up as much as comfortable with rest periods throughout the day. Rest with leg elevation is very important. Use the ice wrap frequently for the first 3-4 weeks. D. There are no restrictions on activities. You may ride in a car, shop, participate in certified ophthalmic technician and all social activities. E. Wear the long elastic stockings (SLOAN hose) 20 hours a day for 2 weeks after surgery. They can be removed several times a day for laundering and for a bath. F. You may shower, no tub baths until cleared by your doctor. SPECIAL CARE INSTRUCTIONS: VERY IMPORTANT TO READ AND REVIEW A. There are a few signs you need to watch for after you are home. Call [facility] if you notice any of the followin. Increased severe knee pain. Some pain is expected especially when you exercise. 2. Increased swelling in your leg or knee; pain or swelling of the calf muscle in either lower leg. 3. Any fluid drainage from the incision. 4. Shortness of breath or chest pain. B. Please call [facility] at if you have any concerns or questions about your operation or recovery. The doctor or his nurse will return your call promptly. C. You must take antibiotics before dental work, bladder, bowel or other surgery. Your doctor will provide you with a permanent care to carry describing this precaution. IMPORTANT: * REMEMBER TO TAKE YOUR XARELTO DAILY. THIS IS YOUR BLOOD THINNER. * CALL IF INCREASED PAIN, REDNESS, DRAINAGE OR FEVER GREATER THAT 101. * WEAR SLOAN HOSE 20 HOURS PER DAY FOR 2 WEEKS. * DERMABOND Prineo- This is a mesh tape dressing that is covered with glue. It should remain in place until the incision is properly healed, usually 10-14 days. This dressing is designed to naturally slough off. You may trim the excess mesh tape as it peels off. Incision may be briefly wet in a shower. Dry immediately by blotting with a clean, dry towel. Do not bath or swim until instructed by your doctor. Do not scratch, rub, or pick at the dressing. Do not apply any topical ointments or lotions until dressing is completely removed and/or instructed by your doctor. There may be a small piece of suture material at one end of your incision. Do not pull or trim this. If it is bothersome or catching on clothing, you may cover it with a band-aid. IF INCISION IS LEAKING THROUGH DRESSING, CALL THE OFFICE . FOLLOW UP VISIT: If appointment is not already scheduled: Please call [facility] to make a follow-up appointment for 2 weeks after your surgery at . Stand-Alone Forms: [employer], Opioid Pain Management, Smoking Cessation Medications and DC Order Prescriptions: New oxycodone 5 mg Tablet 5 - 10 mg PO .Q4h-6h MDD 6 PRN (Reason: pain) Qty: 30 RF: 0 acetaminophen 500 mg tablet 1,000 mg PO Q8H Qty: 60 RF: 0 polyethylene glycol 3350 [Miralax] 17 gram powder in packet 17 g PO DAILY PRN (Reason: constipation) Qty: 5 RF: 0 Narcan 4 mg/actuation spray,non-aerosol 1 sprays INTNAS ONCE Qty: 2 RF: 0 Continued trazodone 50 mg Tablet 50 mg PO HS RF: 0 levothyroxine 25 mcg Tablet 25 mcg PO QAM RF: 0 duloxetine [Cymbalta] 30 mg Capsule,Delayed Release(Dr/Ec) 30 mg PO PM RF: 0 duloxetine [Cymbalta] 60 mg Capsule,Delayed Release(Dr/Ec) 60 mg PO QAM RF: 0 pregabalin [Lyrica] 100 mg Capsule 100 mg PO 1200 RF: 0 pregabalin [Lyrica] 150 mg Capsule 150 mg PO AMPM RF: 0 Discontinued meloxicam [Mobic] 15 mg Tablet 15 mg PO QAM RF: 0 No Action oxycodone [OxyContin] 10 mg tablet,oral only,ext.rel.12 hr 10 mg PO BID MDD 2 Qty: 14 RF: 0 Xarelto 10 mg tablet 10 mg PO QAM RF: 0 Discharge Orders: Discharge Order (Routine); Ordered 07/26/20 Ordered By: Jitendra Valle/Other Patient Handouts: DVT Post Op Prevention, ED Emily Lambert Admission Data Admit Date/Time: 07/23/20 16:07 Attending Provider: Santos Thomas Admit Provider: Santos Thomas Primary Care Provider: PCP,NO Other Providers: [facility],Home Health Other Interventions: Discharge Summary Assessment (RN) Last Done: 07/26/20 08:45
== END 2020-07-26 12:05 | disposition home health service (06) | DRG 470 ==
LOC: ASU 05:20 → 3E 05:20 → OBSVTOIN 16:07

== ENCOUNTER 2020-07-27 13:33 | Observation (INO) ==
--- NOTE | 2020-07-27 14:19 | Emergency Department Note ---
Impression & Plan Intractable pain, Painful total knee replacement, right, Painful total knee replacement, left ED Provider Note NAME: BRIDGETTE JEFFERSON AGE: 55 SEX: F : 1965 ARRIVES VIA: Ambulance INFORMANT: Patient, ED PROVIDER(S): Ross Brennan MD Chief Complaint: Pain, difficulty with ambulation HPI: The patient is recently postop from bilateral total knee arthroplasties completed by Dr. Thomas last week. The patient was discharged yesterday. Patient was doing relatively well at home last evening but then this morning was having greater difficulty with ambulating getting up out of bed to and from the bathroom. He significant other was concerned and thus ambulance was called the patient was brought back. The patient did receive fentanyl and Zofran prior to arrival. Patient states that her initial pain was 10 out of 10 currently 8 out of 10. Sharp bilateral knees. Nonradiating but worse with ambulation or movement. Patient denies any fevers or chills. Patient denies any recurrence of any trauma. Patient denies chest pains, shortness of breath. The patient has been compliant with her medications. ROS: See HPI for pertinent positives and negatives. A total of 10 systems were reviewed and otherwise negative. Past medical history: See below Surgical history: See below Social history: See below Physical Exam: GENERAL: Wearing a mask. Uncomfortable in appearance. EYE EXAM: Normal conjunctiva. PERRL, no anisocoria and EOM's grossly intact w/o pain. NECK: Supple, no nuchal rigidity, no adenopathy, non-tender. No signs of meningismus. LUNGS: Clear to auscultation. Normal chest wall mechanics. HEART: NSR, no MRG. ABDOMEN: Abdomen soft, non-tender, normo-active bowel sounds, no masses, no rebound or guarding. BACK: No CVA TTP. SKIN: No rashes and no bruising. UPPER EXTREMITIES: Upper extremities are grossly normal. LOWER EXTREMITIES: Grossly normal, no edema. Bilateral midline vertical incisions over the anterior knees without effusion, redness, drainage, decreased range of motion secondary to pain, soft compartments, no asymmetry, compression hose in place, good DP pulses bilaterally. Temperature is grossly normal bilaterally. NEURO EXAM: A&O x3, cranial nerves II-XII grossly intact, normal speech, moves all 4 extremities on command w/o issue. Differential diagnoses: Fracture, subluxation, dislocation, contusion, ligamentous injury, neurovascular, compartment syndrome, rhabdomyolysis, as well as other pathologies. Course: Patient was seen and evaluated the bedside. Full history physical exam was performed. EKG: None Imaging Studies: Radiology results as stated below per my review in the radiologist's interpretation: Cardiac monitoring: An order was placed for continuous cardiac monitoring. The monitor shows a rate of 99 with sinus rhythm. MDM: Patient was seen due to concern for worsening bilateral lower extremity pain. The patient has good DP pulses no reinjury and the patient does not have any obvious asymmetry. The patient states that she has been able to take her medications. The patient was reevaluated after discussion with pharmacy and [facility] to see if the patient could be prescribed a long-acting pain medication until her follow-up appointment with Dr. Thomas. I did talk about this with the patient the patient's significant other. They were not comfortable taking the patient home and do not believe that they can manage her pain and care at home at this time. I did discuss possibility of rehab. I did speak the on-call behavioral health case manager who stated the patient would need to be admitted in order to be eligible for rehab at this time. I did speak the on-call orthopedist Dr. Celeste who admitted the patient. 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 Limited ROM. 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 Beliefs That Will Affect Care: None marital status: Current Living Situation: Spouse Other Information That Helps Us Care for You: No Feels Safe at Home: Yes Safety Concerns: Feels Safe At This Time Allergies Allergies Allergy/AdvReac Type Severity Reaction Status Date / Time morphine Allergy Hives Verified 07/27/20 15:20 Home Meds Home Medications Medication Instructions Recorded Confirmed duloxetine [Cymbalta] 30 mg PO PM 06/21/20 07/27/20 duloxetine [Cymbalta] 60 mg PO QAM 06/21/20 07/27/20 levothyroxine 25 mcg PO QAM 06/21/20 07/27/20 pregabalin [Lyrica] 100 mg PO 1200 06/21/20 07/27/20 pregabalin [Lyrica] 150 mg PO AMPM 06/21/20 07/27/20 trazodone 50 mg PO HS 06/21/20 07/27/20 rivaroxaban [Xarelto] 10 mg PO QAM 07/27/20 07/27/20 Previous Rx's Medication Instructions Recorded acetaminophen 1,000 mg PO Q8H #60 tab 07/25/20 oxycodone 5 - 10 mg PO .Q4h-6h PRN #30 tab 07/25/20 MDD 6 cefadroxil 500 mg PO BID #14 cap 07/26/20 naloxone [Narcan] 1 sprays INTNAS ONCE #2 ea 07/26/20 polyethylene glycol 3350 [Miralax] 17 g PO DAILY PRN #5 ea 07/26/20 oxycodone [OxyContin] 10 mg PO BID #14 tab MDD 2 07/27/20 Results & Data (ED) Vital Signs Vital Signs - 24 hr 07/27/20 13:39 07/27/20 13:41 07/27/20 14:00 Temperature 36.9 C Temperature Source Oral Pulse Rate 90 89 92 H Pulse Rate from SpO2 Sensor 90 92 H Respiratory Rate 18 Blood Pressure 135/74 133/74 141/80 H Blood Pressure Mean 81 93 105 Pulse Oximetry 97 98 95 Oxygen Delivery Method Room Air Sepsis Recent Fever Within 48 Hours No Sepsis New/Unexplained Change in Mental Status No Sepsis Action Taken by Nursing No Action Required 07/27/20 14:30 07/27/20 15:00 07/27/20 15:30 Temperature Temperature Source Pulse Rate 100 H 92 H 93 H Pulse Rate from SpO2 Sensor 100 H 93 H 93 H Respiratory Rate 12 15 Blood Pressure 138/77 144/81 H 136/80 Blood Pressure Mean 103 90 100 Pulse Oximetry 98 96 96 Oxygen Delivery Method Sepsis Recent Fever Within 48 Hours Sepsis New/Unexplained Change in Mental Status Sepsis Action Taken by Nursing 07/27/20 16:00 Temperature Temperature Source Pulse Rate 99 H Pulse Rate from SpO2 Sensor 101 H Respiratory Rate 16 Blood Pressure 132/76 Blood Pressure Mean 88 Pulse Oximetry 99 Oxygen Delivery Method Sepsis Recent Fever Within 48 Hours Sepsis New/Unexplained Change in Mental Status Sepsis Action Taken by Prison Medications Current Medication List: was personally reviewed by me Laboratory Data Attestation: I reviewed the patient's lab results. Lab Results 07/27/20 Range/Units 16:57 PT 11.4 (9.0-12.0) Seconds INR 1.1 (0.9-1.1) Administered Medications Discontinued Medications Fentanyl Citrate (Fentanyl Citrate 100 Mcg/2 Ml Vial) 50 mcg IV NOW STA Stop: 07/27/20 16:12 Last Admin: 07/27/20 16:17 Dose: 50 mcg Documented by: [id number] Ondansetron HCl (Ondansetron Inj 2 Mg/Ml 2 Ml Vial) Confirm Administered Dose 4 mg .ROUTE .STK-MED ONE Stop: 07/27/20 16:10 Last Admin: 07/27/20 16:13 Dose: 4 mg Documented by: [id number] Ondansetron HCl (Ondansetron Inj 2 Mg/Ml 2 Ml Vial) 4 mg IV NOW STA Stop: 07/27/20 16:12 Last Admin: 07/27/20 16:13 Dose: Not Given Documented by: [id number] Discharge Plan Visit Data Chief Complaint: Knee Injury/Pain Stated Complaint: S/P day 4 B/L TKAs ED Provider: Ross Brennan Discharge Problem: Intractable pain, Painful total knee replacement, right, Painful total knee replacement, left Patient Disposition: Admitted As Inpatient Forms Stand Alone Forms: My [facility] [address] [employer] Prescriptions Prescriptions: New oxycodone [OxyContin] 10 mg tablet,oral only,ext.rel.12 hr 10 mg PO BID MDD 2 Qty: 14 RF: 0 Discontinued oxycodone [OxyContin] 10 mg tablet,oral only,ext.rel.12 hr 10 mg PO BID RF: 0 No Action trazodone 50 mg Tablet 50 mg PO HS RF: 0 levothyroxine 25 mcg Tablet 25 mcg PO QAM RF: 0 duloxetine [Cymbalta] 30 mg Capsule,Delayed Release(Dr/Ec) 30 mg PO PM RF: 0 duloxetine [Cymbalta] 60 mg Capsule,Delayed Release(Dr/Ec) 60 mg PO QAM RF: 0 pregabalin [Lyrica] 100 mg Capsule 100 mg PO 1200 RF: 0 pregabalin [Lyrica] 150 mg Capsule 150 mg PO AMPM RF: 0 oxycodone 5 mg Tablet 5 - 10 mg PO .Q4h-6h MDD 6 PRN (Reason: pain) Qty: 30 RF: 0 acetaminophen 500 mg tablet 1,000 mg PO Q8H Qty: 60 RF: 0 polyethylene glycol 3350 [Miralax] 17 gram powder in packet 17 g PO DAILY PRN (Reason: constipation) Qty: 5 RF: 0 cefadroxil 500 mg capsule 500 mg PO BID Qty: 14 RF: 0 Narcan 4 mg/actuation spray,non-aerosol 1 sprays INTNAS ONCE Qty: 2 RF: 0 Xarelto 10 mg tablet 10 mg PO QAM RF: 0 Referrals Referrals: PCP,NO [Primary Care Provider] - Discharge Problem: Painful total knee replacement, right Qualifiers: Encounter type: initial encounter Qualified Code(s): T84.84XA - Pain due to internal orthopedic prosthetic devices, implants and grafts, initial encounter Painful total knee replacement, left Qualifiers: Encounter type: initial encounter Qualified Code(s): T84.84XA - Pain due to internal orthopedic prosthetic devices, implants and grafts, initial encounter
[2020-07-27] MEDS ORDERED: ONDANSETRON INJ 2 MG/ML 2 ML VIAL ONE (16:09)
[2020-07-27] MEDS ORDERED: ONDANSETRON INJ 2 MG/ML 2 ML VIAL IV STA (16:11)
[2020-07-27] MEDS ORDERED: fentaNYL citrate 100 MCG/2 ML VIAL IV STA (16:11)
--- NOTE | 2020-07-27 16:23 | History & Physical Report ---
Date of Service July 27, 2020 Assessment & Plan (1) Intractable pain: Postoperative day #4 status post bilateral total knee arthroplasties now with intractable pain bilateral knees. Patient admitted to observation for further treatment and pain control. May weight-bear as tolerates bilateral lower extremity. PT/OT. DVT prophylaxis Xarelto daily. Ice and elevation bilateral lower extremities. (2) History of total bilateral knee replacement: History of Present Illness Chief Complaint: Intractable postoperative pain status post bilateral total knee arthroplasties Primary Care Provider: NO PCP The patient is a 55-year-old female who presents to [facility] emergency department with intractable bilateral knee pain status post bilateral total knee arthroplasty performed by Dr. Thomas on 07/23/2020. The patient's postoperative course was relatively uneventful and they were discharged home on 07/26/2020. Secondary to lack of support system at home, patient's unable to care for the patient and pain unable to be controlled successfully in the emergency department the patient was admitted for observation and pain control. Allergies Allergy/AdvReac Type Severity Reaction Status Date / Time morphine Allergy Hives Verified 07/27/20 15:20 Home Medications Home Medications Medication Instructions Recorded Confirmed Type duloxetine [Cymbalta] 30 mg PO PM 06/21/20 07/27/20 History duloxetine [Cymbalta] 60 mg PO QAM 06/21/20 07/27/20 History levothyroxine 25 mcg PO QAM 06/21/20 07/27/20 History pregabalin [Lyrica] 100 mg PO 1200 06/21/20 07/27/20 History pregabalin [Lyrica] 150 mg PO AMPM 06/21/20 07/27/20 History trazodone 50 mg PO HS 06/21/20 07/27/20 History acetaminophen 1,000 mg PO Q8H #60 tab 07/25/20 07/27/20 Rx oxycodone 5 - 10 mg PO .Q4h-6h PRN #30 tab 07/25/20 07/27/20 Rx MDD 6 cefadroxil 500 mg PO BID #14 cap 07/26/20 07/27/20 Rx naloxone [Narcan] 1 sprays INTNAS ONCE #2 ea 07/26/20 07/27/20 Rx polyethylene glycol 3350 [Miralax] 17 g PO DAILY PRN #5 ea 07/26/20 07/27/20 Rx oxycodone [OxyContin] 10 mg PO BID #14 tab MDD 2 07/27/20 Rx rivaroxaban [Xarelto] 10 mg PO QAM 07/27/20 07/27/20 History Past Med/Surg History Medical History Cervical cancer in 20's > hyster Chronic back pain Fibromyalgia Hypothyroidism Osteoarthritis Seasonal allergies 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 Limited ROM. History of colonoscopy History of hysterectomy History of tooth extraction Hx of bilateral oophorectomy Hx of eye surgery for lowering pressure in both eyes Social History Smoking Status: Former smoker Second Hand Exposure: No; Hx Alcohol Use: Yes Alcohol type: wine Hx Substance Use: No Preferred Language: Portuguese Communication Ability: Effective Sensitized Paper Tester Required: No Beliefs That Will Affect Care: None marital status: Current Living Situation: Spouse Other Information That Helps Us Care for You: No Feels Safe at Home: Yes Safety Concerns: Feels Safe At This Time Review of Systems Review of Systems: All systems reviewed & are unremarkable except as noted in HPI & below Constitutional: as per Subjective / HPI Physical Exam Physical Exam: RLE NVSI +EHL/FHL/TA/GS SILT grossly, +2 DP pulse, compartments soft NT, incision cdi. LLE NVSI +EHL/FHL/TA/GS SILT grossly, +2 DP pulse, compartments soft NT, incision cdi. Constitutional: WD/WN, vitals as above Results & Data Results & Data ([facility]) Vital Signs (Past 12 Hours) Vital Signs Temp Pulse Resp BP Pulse Ox 07/27/20 13:41 36.9 C 89 18 133/74 98 Laboratory Results 07/27/20 07/27/20 07/27/20 Range/Units 18:09 18:09 16:57 WBC 6.31 (4.8-10.8) K/uL RBC 3.64 L (4.2-5.4) M/uL Hgb 10.5 L (12.0-16.0) g/dL Hct 32.9 L (37-47) % MCV 90.4 (80-100) fL MCH 28.8 (25-34) pg MCHC 31.9 L (32-36) g/dL RDW Std Deviation 43.5 (36.4-46.3) fL RDW Coeff of Ni 13.1 (11.5-14.5) % Plt Count 303 (130-400) K/uL MPV 9.3 (7.4-10.4) fL PT 11.4 (9.0-12.0) Seconds INR 1.1 (0.9-1.1) Sodium 140 (136-145) mmol/L Potassium 4.0 (3.5-5.1) mmol/L Chloride 106 (98-107) mmol/L Carbon Dioxide 30 (21-32) mmol/L Anion Gap 4.0 (3-11) BUN 8 D (7-18) mg/dl Creatinine 0.60 (0.6-1.2) mg/dl Est Cr Clr Drug Dosing 118.5 ml/min Est GFR ( Amer) 119.8 Est GFR (Non-Af Amer) 103.3 BUN/Creatinine Ratio 14.1 (10-20) Glucose 100 H (70-99) mg/dl Calcium 8.6 (8.5-10.1) mg/dl
[2020-07-27 17:16] LABS: INR 1.1 (0.9-1.1); Prothrombin Time 11.4 Seconds (9.0-12.0)
[2020-07-27] MEDS ORDERED: ONDANSETRON INJ 2 MG/ML 2 ML VIAL IV PRN (17:52)
[2020-07-27] MEDS ORDERED: NALOXONE HCL 0.4 MG/1 ML VIAL/CARP IV PRN (17:52)
[2020-07-27] MEDS ORDERED: bisacodyL 10 MG SUPP PR PRN (17:52)
[2020-07-27] MEDS ORDERED: METOCLOPRAMIDE HCL INJ 5 MG/ML 2 ML VIAL IV PRN (17:52)
[2020-07-27] MEDS: OXYCODONE HCL IR 5 MG TAB (IMMEDIATE RELEASE) PO PRN ×2 (18:12→22:26)
[2020-07-27 18:19] LABS: Hematocrit (blood only) 32.9 % (37-47); Hemoglobin 10.5 g/dL (12.0-16.0); Mean Corpuscular Hemoglobin 28.8 pg (25-34); Mean Corpuscular Volume 90.4 fL (80-100); Mean Platelet Volume 9.3 fL (7.4-10.4); Platelet Count 303 K/uL (130-400); RDW Coefficient of Variation 13.1 % (11.5-14.5); RDW Standard Deviation 43.5 fL (36.4-46.3); Red Blood Count 3.64 M/uL (4.2-5.4); White Blood Count 6.31 K/uL (4.8-10.8)
[2020-07-27 18:31] LABS: Mean Corpuscular Hgb Conc 31.9 g/dL (32-36)
[2020-07-27 18:44] LABS: BUN Creatinine Ratio 14.1 (10-20); Calcium 8.6 mg/dl (8.5-10.1); Creatinine Clr Calc Pharmacy 118.5 ml/min; Est GFR (African American) 119.8; Est GFR (Non-African American) 103.3
[2020-07-27] MEDS: HYDROmorphone INJ 0.5 MG/0.5 ML SYR IV PRN (18:49)
[2020-07-27] MEDS: PREGABALIN 150 MG CAP PO SCH (20:13)
[2020-07-27] MEDS: OXYCODONE HCL 10 MG TABCR (OXYCONTIN) PO SCH (20:13)
[2020-07-27] MEDS: DOCUSATE SODIUM 100 MG CAP PO SCH (20:13)
[2020-07-27] MEDS: SENNA 8.6 MG TAB PO SCH (20:13)
[2020-07-27] MEDS: TRAZODONE HCL 50 MG TAB PO SCH (20:13)
[2020-07-27] MEDS: DULOXETINE HCL 30 MG CAP PO SCH (20:13)
[2020-07-27] MEDS: ACETAMINOPHEN 500 MG TAB PO SCH (21:16)
[2020-07-28] MEDS: HYDROmorphone INJ 0.5 MG/0.5 ML SYR IV PRN ×3 (01:29→14:44)
[2020-07-28] MEDS: OXYCODONE HCL IR 5 MG TAB (IMMEDIATE RELEASE) PO PRN ×5 (04:15→23:31)
[2020-07-28] MEDS: ACETAMINOPHEN 500 MG TAB PO SCH ×3 (05:40→21:03)
[2020-07-28] MEDS: LEVOTHYROXINE SODIUM 25 MCG TABLET PO SCH (05:40)
--- NOTE | 2020-07-28 08:02 | Orthopedic Progress Note ---
Date of Service July 28, 2020 Assessment & Plan (1) Intractable pain: Postoperative day #5 status post bilateral total knee arthroplasties now with intractable pain bilateral knees. Patient admitted to observation for further treatment and pain control. May weight-bear as tolerates bilateral lower extremity. PT/OT. DVT prophylaxis Xarelto daily. Ice and elevation bilateral lower extremities. Case management consult in place. Patient requesting rehab placement. (2) History of total bilateral knee replacement: Admission and Anticipated Discharge Date Admission Date: July 27, 2020 Supervising Physician Co-Signing Physician Notes Patient seen and examined agree with above assessment and plan. Subjective Patient is postop day #5 from bilateral TKAs. She reported to the ED yesterday afternoon due to intractable pain and poor support at home. is unable to take care of her at home. She was admitted to our service. Pain is better controlled this morning than yesterday, however still having a significant amount of pain. She is requesting rehab placement. No other complaints. Denies chest pain, shortness of breath, nausea, vomiting, diarrhea, no dizziness or lightheadedness. Review of Systems Review of Systems: All systems reviewed & are unremarkable except as noted in HPI & below Physical Exam Physical Exam: Pernio dressing to bilateral knees is clean dry and intact. Mild effusion bilaterally. No drainage, no erythema. Pain with gentle range of motion of her knees bilaterally, right greater than left. She has no calf tenderness bilaterally. Toes are mobile with good dorsiflexion bilaterally. Distally she was neurovascularly intact, sensation intact bilaterally. Constitutional: well developed and well nourished; no acute distress Respiratory: normal respiratory effort; no respiratory distress Cardiovascular: Rate/Rhythm: regular rate and regular rhythm Extremities: normal capillary refill; no calf tenderness and no edema Skin: no rashes, warm and dry Results & Data ([facility]) Vital Signs (Past 12 Hours) Vital Signs Temp Pulse Resp BP Pulse Ox 07/28/20 07:29 36.5 C 71 18 104/67 99 07/27/20 23:50 36.8 C 85 14 112/71 98
[2020-07-28] MEDS: RIVAROXABAN 10 MG TABLET PO SCH (08:35)
[2020-07-28] MEDS: DOCUSATE SODIUM 100 MG CAP PO SCH ×2 (08:35→21:03)
[2020-07-28] MEDS: DULOXETINE HCL 60 MG CAP PO SCH (08:36)
[2020-07-28] MEDS: PREGABALIN 150 MG CAP PO SCH ×2 (08:36→21:03)
[2020-07-28] MEDS: OXYCODONE HCL 10 MG TABCR (OXYCONTIN) PO SCH ×2 (08:36→21:03)
[2020-07-28] MEDS: MULTIVITAMIN TAB PO SCH (08:36)
[2020-07-28] MEDS: PREGABALIN 100 MG CAP PO SCH (11:56)
--- NOTE | 2020-07-28 16:22 | Discharge Summary ---
Date of Service date of discharge: July 26, 2020 date of admission: 07-23-20 Admission HPI Per Admitting Provider Joyce is a 55 year old female who complains of bilateral knee pain, presents for pre-op evaluation prior to bilateral total knee replacements by dr Thomas at [facility]. she complains of pain, crepitus, decreased range of motion, instability and stiffness in both knees. she states that the symptoms have been chronic and non-traumatic. she states that the symptoms occur constantly with intermittent worsening. Currently the patient states that the symptoms are moderate-severe. The pain is described as aching, sharp and throbbing. The symptoms occur continuously. The symptoms are aggravated by ascending stairs, daily activities, first steps while awake walking. Prior NSAIDs include Ibuprofen and Aleve. Prior pain medications include Tylenol. she has been treated with previous visco injections in the past without much relief. she has had prior physical therapy. Admission Exam Per Admitting Provider Bilateral knee Physical exam Overall she has varus alignment bilaterally, there is no atrophy or ecchymosis noted, +1 suprapatellar effusion in both knees, positive tenderness to both medial and lateral joint lines both knees. negative patellar apprehension, positive crepitation noted to both knees with active ROM. bilateral knees stable to valgus and varus stress, marley negative, posterior drawer negative. Range of motion right knee 0/3/110, left knee 0/3/115. lower extremities are neurovascularly intact, calf soft and non tender, DP pulse +2 bilaterally. Principal Diagnosis bilateral knee arthritis Discharge Exam Musculoskeletal bilateral knees: NVDI, calf SNT, negative israel sign. DP palpable, able to wiggle toes/ankle movement without difficulty. Prineo dressing clean dry and intact. expected post-operative bruising noted. Discharge Data Allergies Allergy/AdvReac Type Severity Reaction Status Date / Time morphine Allergy Hives Verified 07/27/20 15:20 Consultations 07/27/20 17:52 Consult Case Management - Discharge Planning Routine Hospital Course (1) History of total bilateral knee replacement: History of total bilateral knee replacement: POD #3 s/p Bilateral TKA pt/ot dvt proph with SLOAN/SCD/Xarelto x 1 month Pain control is much better today after adding OxyContin. BMP pending plan for d/c home with HHPT today after PT and OT sessions Total Time Total Time Spent Total Time Spent (In Minutes): 20 Total Time Includes: Examination of the Patient, Discharge Planning and Medication Reconciliation Discharge Plan Discharge Items Reason For Visit: POSTOPERATIVE INTRACTABLE PAIN STATUS POST TKR Follow-up/Referrals: PCP,NO [Primary Care Provider] - Medications and DC Order Prescriptions: New oxycodone [OxyContin] 10 mg tablet,oral only,ext.rel.12 hr 10 mg PO BID MDD 2 Qty: 14 RF: 0 Discontinued oxycodone [OxyContin] 10 mg tablet,oral only,ext.rel.12 hr 10 mg PO BID RF: 0 No Action trazodone 50 mg Tablet 50 mg PO HS RF: 0 levothyroxine 25 mcg Tablet 25 mcg PO QAM RF: 0 duloxetine [Cymbalta] 30 mg Capsule,Delayed Release(Dr/Ec) 30 mg PO PM RF: 0 duloxetine [Cymbalta] 60 mg Capsule,Delayed Release(Dr/Ec) 60 mg PO QAM RF: 0 pregabalin [Lyrica] 100 mg Capsule 100 mg PO 1200 RF: 0 pregabalin [Lyrica] 150 mg Capsule 150 mg PO AMPM RF: 0 oxycodone 5 mg Tablet 5 - 10 mg PO .Q4h-6h MDD 6 PRN (Reason: pain) Qty: 30 RF: 0 acetaminophen 500 mg tablet 1,000 mg PO Q8H Qty: 60 RF: 0 polyethylene glycol 3350 [Miralax] 17 gram powder in packet 17 g PO DAILY PRN (Reason: constipation) Qty: 5 RF: 0 cefadroxil 500 mg capsule 500 mg PO BID Qty: 14 RF: 0 Narcan 4 mg/actuation spray,non-aerosol 1 sprays INTNAS ONCE Qty: 2 RF: 0 Xarelto 10 mg tablet 10 mg PO QAM RF: 0 Admission Data Admit Date/Time: 07/27/20 16:31 Attending Provider: Santos Thomas Admit Provider: Liang Celeste Primary Care Provider: PCP,NO Other Providers: Brandi Jean
[2020-07-28] MEDS: SENNA 8.6 MG TAB PO SCH (21:03)
[2020-07-28] MEDS: TRAZODONE HCL 50 MG TAB PO SCH (21:03)
[2020-07-28] MEDS: DULOXETINE HCL 30 MG CAP PO SCH (21:03)
[2020-07-29] MEDS: HYDROmorphone INJ 0.5 MG/0.5 ML SYR IV PRN (02:33)
[2020-07-29] MEDS: LEVOTHYROXINE SODIUM 25 MCG TABLET PO SCH (05:37)
[2020-07-29] MEDS: ACETAMINOPHEN 500 MG TAB PO SCH ×3 (05:37→22:35)
[2020-07-29] MEDS: MAGNESIUM HYDROXIDE SUSP 30 ML UDC PO PRN ×2 (05:56→14:41)
[2020-07-29] MEDS: DOCUSATE SODIUM 100 MG CAP PO SCH ×2 (07:43→20:35)
[2020-07-29] MEDS: RIVAROXABAN 10 MG TABLET PO SCH (07:43)
[2020-07-29] MEDS: DULOXETINE HCL 60 MG CAP PO SCH (07:43)
[2020-07-29] MEDS: OXYCODONE HCL 10 MG TABCR (OXYCONTIN) PO SCH ×2 (07:43→20:35)
[2020-07-29] MEDS: MULTIVITAMIN TAB PO SCH (07:43)
[2020-07-29] MEDS: PREGABALIN 150 MG CAP PO SCH ×2 (07:48→20:41)
--- NOTE | 2020-07-29 08:14 | Orthopedic Progress Note ---
Date of Service July 29, 2020 Assessment & Plan (1) History of total bilateral knee replacement: History of total bilateral knee replacement: Hospital day 2 pain control issues. (postop day #6 s/p Bilateral TKA) pt/ot dvt proph with SLOAN/SCD/Xarelto x 1 month Pain control remains good. DC planning-patient planning [facility] upon discharge if authorization approved. Admission and Anticipated Discharge Date Admission Date: July 27, 2020 Subjective Hospital day 2 after readmission for pain control issues. Patient stated that she was unable to get her OxyContin in a timely fashion from her pharmacy. Patient sitting up in her bed eating breakfast. She is alert and oriented. Her pain control was good this morning and she is feeling well. No new complaints. She is hoping for a skilled facility upon discharge. Physical Exam Physical Exam: Incisions are very benign. Her swelling has gone down from the last time I saw her on Wednesday from both knees. No overt erythema. Calves are soft and nontender. Neurovascular is intact. Toes are mobile. Results & Data ([facility]) Vital Signs (Past 12 Hours) Vital Signs Temp Pulse Resp BP Pulse Ox 07/29/20 06:02 36.4 C L 79 16 139/84 96 07/28/20 23:23 36.7 C 75 16 125/78 99
[2020-07-29] MEDS: OXYCODONE HCL IR 5 MG TAB (IMMEDIATE RELEASE) PO PRN ×4 (08:27→22:35)
[2020-07-29] MEDS: PREGABALIN 100 MG CAP PO SCH (11:58)
[2020-07-29] MEDS: SENNA 8.6 MG TAB PO SCH (20:35)
[2020-07-29] MEDS: DULOXETINE HCL 30 MG CAP PO SCH (20:35)
[2020-07-29] MEDS: TRAZODONE HCL 50 MG TAB PO SCH (20:35)
[2020-07-30] MEDS: OXYCODONE HCL IR 5 MG TAB (IMMEDIATE RELEASE) PO PRN ×3 (02:28→12:30)
[2020-07-30] MEDS: LEVOTHYROXINE SODIUM 25 MCG TABLET PO SCH (06:36)
[2020-07-30] MEDS: ACETAMINOPHEN 500 MG TAB PO SCH ×2 (06:36→13:45)
[2020-07-30] MEDS: RIVAROXABAN 10 MG TABLET PO SCH (08:44)
[2020-07-30] MEDS: PREGABALIN 150 MG CAP PO SCH (08:44)
[2020-07-30] MEDS: DOCUSATE SODIUM 100 MG CAP PO SCH (08:44)
[2020-07-30] MEDS: DULOXETINE HCL 60 MG CAP PO SCH (08:44)
[2020-07-30] MEDS: OXYCODONE HCL 10 MG TABCR (OXYCONTIN) PO SCH (08:44)
[2020-07-30] MEDS: MULTIVITAMIN TAB PO SCH (08:44)
[2020-07-30] MEDS: PREGABALIN 100 MG CAP PO SCH (11:47)
--- NOTE | 2020-07-30 15:18 | Orthopedic Progress Note ---
Date of Service July 30, 2020 Assessment & Plan (1) History of total bilateral knee replacement: History of total bilateral knee replacement: Hospital day 3 pain control issues. (postop day #7 s/p Bilateral TKA) pt/ot dvt proph with SLOAN/SCD/Xarelto x 1 month Pain control remains good. DC planning-Case management states that the patient's request for skilled facility has been denied secondary to her increased debility to ambulate and PT. They will be talking to the patient shortly. Most likely she will need to go home with home health services. Will recheck on her this afternoon. Admission and Anticipated Discharge Date Admission Date: July 27, 2020 Subjective Patient was sitting up in bed this afternoon. No complaints. Pain controlled. States she was ambulating a bit better today. No other complaints. Denies shortness of breath, chest pain, lightheadedness. Patient was worried about possible denial for a skilled facility unsure if she would be out of take care of her self with her 's help at home. Physical Exam Physical Exam: Incisions are benign bilaterally. Less swelling. No erythema. No drainage. Calves are soft and nontender. Neurovascular is intact. Toes are mobile. Results & Data ([facility]) Vital Signs (Past 12 Hours) Vital Signs Temp Pulse Resp BP Pulse Ox 07/30/20 14:51 36.4 C L 88 18 123/69 96 07/30/20 07:43 36.6 C 107 H 18 92/64 L 91
== END 2020-07-30 17:20 | disposition home health service (06) ==
LOC: ED 13:33 → 3E 13:33

== ENCOUNTER 2024-02-04 09:53 | Inpatient (IN) ==
--- NOTE | 2024-01-12 15:22 | PAT Medication Instructions ---
Medication Instructions Date of Service January 12, 2024 Home Medications duloxetine 30 mg capsule,delayed release (Cymbalta) 30 mg PO PM duloxetine 60 mg capsule,delayed release (Cymbalta) 60 mg PO QAM levothyroxine 25 mcg tablet 25 mcg PO QAM pregabalin 100 mg capsule (Lyrica) 100 mg PO 1200 pregabalin 150 mg capsule (Lyrica) 150 mg PO AMPM trazodone 50 mg tablet 50 mg PO HS acetaminophen 500 mg tablet 1,000 mg PO Q8H PRN pain Continue as directed pregabalin 100 mg capsule (Lyrica) 100 mg PO 1200 Take morning of surgery With a small sip of water, OTHERWISE NOTHING TO EAT OR DRINK AFTER MIDNIGHT: duloxetine 60 mg capsule,delayed release (Cymbalta) 60 mg PO QAM levothyroxine 25 mcg tablet 25 mcg PO QAM pregabalin 150 mg capsule (Lyrica) 150 mg PO AMPM acetaminophen 500 mg tablet 1,000 mg PO Q8H PRN pain (if needed) Take evening before surgery duloxetine 30 mg capsule,delayed release (Cymbalta) 30 mg PO PM pregabalin 150 mg capsule (Lyrica) 150 mg PO AMPM trazodone 50 mg tablet 50 mg PO HS acetaminophen 500 mg tablet 1,000 mg PO Q8H PRN pain (if needed) Other Notes If you have any questions please call us at [phone] or [phone] or [phone] or [phone]
--- NOTE | 2024-01-27 09:36 | Anesthesiology Consultation ---
Date of Service January 27, 2024 Assessment & Plan (1) Encounter for pre-operative examination: - medical clearance 01/26/24 [facility]: "...preop exam...L4-S1 decompression and fusion...low risk for surgery...CBC, CMP and TSH reviewed-normal..." Chart Review Chart Review: Acceptable Risk for Surgery and Patient seen in Pre Admission Testing Teaching & Discussion Pre-Anesthesia Teaching/Discussion Notes: Instructed NPO after midnight before surgery, except medications with 15 cc of water. Medication instructions provided according to the PAT guidelines. History Surgery Operation Date: 02/04/24 09:25 Proposed Procedures p L4-S1 Decompression and Fusion with Spinal Cord Monitoring - Yuri Kwok DO Height/Weight Height: 5 ft 2 in Weight: 75.6 kg Allergies Allergy/AdvReac Type Severity Reaction Status Date / Time morphine Allergy Hives Verified 01/11/24 15:37 Medications Home Medications Medication Instructions Recorded Confirmed Last Taken duloxetine 30 mg capsule,delayed 30 mg PO PM 06/21/20 01/11/24 07/22/20 19:00 release (Cymbalta) duloxetine 60 mg capsule,delayed 60 mg PO QAM 06/21/20 01/11/24 07/23/20 04:00 release (Cymbalta) levothyroxine 25 mcg tablet 25 mcg PO QAM 06/21/20 01/11/24 07/23/20 04:00 pregabalin 100 mg capsule (Lyrica) 100 mg PO 1200 06/21/20 01/11/24 07/22/20 12:00 pregabalin 150 mg capsule (Lyrica) 150 mg PO AMPM 06/21/20 01/11/24 07/23/20 04:00 trazodone 50 mg tablet 50 mg PO HS 06/21/20 01/11/24 07/22/20 19:00 acetaminophen 500 mg tablet 1,000 mg PO Q8H PRN pain 01/11/24 01/11/24 Unknown Past Medical History Medical History (Updated 01/27/24 @ 09:[address] PA-C) Cervical cancer Age 20s s/p hysterectomy Chronic back pain Fibromyalgia Hypothyroidism Seasonal allergies Seizure Childhood, 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 Temporomandibular joint disorder + clicking, no locking Patient denies h/o stroke, heart attack, heart failure, DM, HTN, blood clots/DVTs or blood transfusions. Exercise / Class Metabolic Activity II 4-5 Yardwork/Stairs/Walk up hill (denies chest discomfort or shortness of breath with 1 FOS) Past Surgical History Surgical History Fusion of spine C-spine ROM limitations History of colonoscopy History of hysterectomy History of tooth extraction History of total bilateral knee replacement B/L TKA (07/23/20): SAB at L4-5, 2 attempts + regional at [facility] Hx of bilateral oophorectomy Hx of eye surgery "for lowering pressure in both eyes" Past Anesthesia History No Hx of Anesthesia Complications and No Family Hx of Anesthesia Complications History of PONV No Hx of PONV and No Hx of Motion Sickness Social History Smoking Status: Current every day smoker Smoking cigarettes per day: 1 ppd Do You Dip or Chew Tobacco: No Hx Alcohol Use: Yes Alcohol type: wine alcohol intake frequency: a few times a month Hx Substance Use: Yes substance use type: marijuana Substance Use Type Other:: medical marijuana-advised Last Used Substance: Unknown Review of Systems Snoring, denies witnessed apneas. Patient denies chest pain, shortness of breath, dyspnea on exertion, reflux, fever, chills, cough, wheezing, or palpitations. Physical Exam Vital Signs Vitals BP 132/83 P 73 TEMP 97.8 SP02 96% on RA RESP 18 Physical Patient resting comfortably in chair in no acute distress, alert and oriented, responding appropriately throughout visit Full cervical extension range of motion without pain TMD 3.5 finger breadths Mallampati Score 2 Dentition: one broken tooth and full upper dentures; denies loose teeth, caps/crowns, implants or bridges Lungs: normal respiratory effort. Good air movement, clear throughout to auscultation, no adventitious breath sounds Cardiac: regular rate and rhythm, no murmurs noted Carotid arteries: negative bruit bilat Lab Results Anesthesia Preop Results Results Anesthesia Widget: PT 10.2 Seconds (9.0-12.0) 01/27/24 PTT 29 Seconds (21-31) 01/27/24 INR 0.9 (0.9-1.1) 01/27/24 Urine Color Yellow 01/27/24 Urine Appearance Clear (Clear) 01/27/24 Urine pH 6.5 (4.5-7.5) 01/27/24 Urine Specific [place] 1.013 (1.000-1.030) 01/27/24 Urine Protein Negative (Negative) 01/27/24 Urine Glucose (UA) Negative (Negative) 01/27/24 Urine Ketones Negative (Negative) 01/27/24 Urine Blood Negative (Negative) 01/27/24 Urine Nitrite Negative (Negative) 01/27/24 Urine Bilirubin Negative (Negative) 01/27/24 Urine Urobilinogen Negative (Negative) 01/27/24 Urine Leukocyte Esterase Negative (Negative) 01/27/24 Blood Type A Positive 01/27/24 Antibody Screen NEGATIVE 01/27/24 Testing Laboratory Results 01/26/24 WBC: 4.8 H/H: 14/43 PLATELETS: 311,000 SODIUM: 140 POTASSIUM: 4.6 CHLORIDE: 103 CO2: 29 BUN: 10 CREATININE: 0.8 GLUCOSE: 95 Electrocardiogram Date: 01/27/24 Sinus bradycardia, rate 57 bpm Chest X-Ray Date: 01/27/24 No active disease in the chest.
[2024-02-04] MEDS: LR 60ML/HR IV SCH (10:40)
[2024-02-04] MEDS: LR 15ML/HR IV SCH (10:40)
[2024-02-04] MEDS: CeleBREX 200 MG CAP PO SCH (10:41)
[2024-02-04] MEDS: GABAPENTIN 600 MG DOSE PO SCH (10:41)
[2024-02-04] MEDS: ACETAMINOPHEN 500 MG TAB PO SCH (10:41)
[2024-02-04] MEDS ORDERED: ePHEDrine sulfate 50 MG/ML AMP IV PRN (10:47)
[2024-02-04] MEDS ORDERED: DROPERIDOL 5 MG/2 ML VIAL IV PRN (10:47)
[2024-02-04] MEDS ORDERED: ATROPINE SULFATE 0.1 MG/ML 10ML SYR IV PRN (10:47)
[2024-02-04] MEDS ORDERED: fentaNYL citrate PF 100 MCG/2 ML VIAL ONE (10:58)
[2024-02-04] MEDS ORDERED: MIDAZOLAM HCL 1 MG/ML 2ML VIAL ONE (10:58)
--- NOTE | 2024-02-04 11:16 | History & Physical Bridge Note ---
Date of Service February 04, 2024 History & Physical Bridge Note I have examined the patient, reviewed the History & Physical and in the interval since the performance of the History & Physical I have noted the following changes of clinical significance: no changes noted
--- NOTE | 2024-02-04 11:18 | History & Physical Report ---
Date of Service February 04, 2024 Assessment & Plan (1) Neurogenic claudication due to lumbar spinal stenosis: Plan: L4-S1 decompression and fusion History of Present Illness Chief Complaint: Back and leg pain Primary Care Provider: SHWETHA Salcido This is a 58-year-old female who presents with chronic persistent back and leg pain after failing course of nonoperative care she is here for surgical invention. Allergies Allergy/AdvReac Type Severity Reaction Status Date / Time morphine Allergy Hives Verified 02/04/24 10:11 Home Medications Medication Instructions Recorded Confirmed Type duloxetine 30 mg capsule,delayed 30 mg PO QAM 06/21/20 02/04/24 History release (Cymbalta) duloxetine 60 mg capsule,delayed 60 mg PO QAM 06/21/20 02/04/24 History release (Cymbalta) levothyroxine 25 mcg tablet 25 mcg PO QAM 06/21/20 02/04/24 History pregabalin 150 mg capsule (Lyrica) 150 mg PO BID 06/21/20 02/04/24 History trazodone 50 mg tablet 50 mg PO HS 06/21/20 02/04/24 History acetaminophen 500 mg tablet 1,000 mg PO Q8H PRN pain 01/11/24 02/04/24 History Past Med/Surg History Medical History (Updated 02/04/24 @ 11:18 by Yuri Kwok DO) Chronic back pain Hypothyroidism Cervical cancer Age 20s s/p hysterectomy Temporomandibular joint disorder + clicking, no locking Fibromyalgia Seizure Childhood, 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 Seasonal allergies Surgical History History of total bilateral knee replacement B/L TKA (07/23/20): SAB at L4-5, 2 attempts + regional at [facility] History of colonoscopy History of tooth extraction Hx of bilateral oophorectomy History of hysterectomy Hx of eye surgery "for lowering pressure in both eyes" Fusion of spine C-spine ROM limitations Social History Smoking Status: Current every day smoker Tobacco Type: Cigarettes Cigarettes Per Day: 1 ppd; Second Hand Exposure: No; Do You Dip or Chew Tobacco: No; Tobacco Cessation Education Requested by Patient: No Hx Alcohol Use: Yes Alcohol type: wine Hx Substance Use: Yes Last Used Substance: Unknown Substance Use Type Other:: medical marijuana-advised Preferred Language: Lithuanian Communication Ability: Effective Estate Planner Required: No Beliefs That Will Affect Care: None marital status: Current Living Situation: Spouse Feels Safe at Home: Yes Safety Concerns: Feels Safe At This Time Assistive Devices: Denture - Upper and Glasses Physical Exam Physical Exam: Patient is alert and oriented Heart regular in rhythm Lungs clear Results & Data Results & Data Vital Signs (Past 12 Hours) Vital Signs Temp Pulse Resp BP Pulse Ox O2 Del Method 02/04/24 10:15 36.5 C 64 20 152/83 H 98 Room Air
[2024-02-04] MEDS: ceFAZolin 2000MG 2,000 MG/15 ML SYR IV SCH ×2 (12:00→20:17)
[2024-02-04] MEDS ORDERED: HYDROmorphone INJ 2 MG/ML SYR/VIAL ONE (12:21)
[2024-02-04] MEDS: BUPIVACAINE/EPINEPHRINE 0.5% MPF 1:200,000 30 ML VIAL ONE (12:43)
[2024-02-04] MEDS: ceFAZolin 330 MG/ML 1 GM VIAL ONE (12:44)
[2024-02-04] MEDS: FLOSEAL HEMOSTATIC MATRIX 10ML TOP ONE (13:34)
[2024-02-04] MEDS ORDERED: ONDANSETRON INJ 2 MG/ML 2 ML VIAL ONE (13:37)
[2024-02-04] MEDS ORDERED: DEXAMETHASONE SOD INJ 4 MG/ML VIAL ONE (13:37)
[2024-02-04] MEDS ORDERED: PHENYLEPHRINE 100MCG/ML 10ML SYR IV ONE (13:37)
[2024-02-04] MEDS ORDERED: SUGAMMADEX SODIUM 200 MG/2 ML VIAL IV ONE (13:37)
[2024-02-04] MEDS ORDERED: PROPOFOL IV EMULSION 10 MG/ML 20 ML VIAL IV ONE (13:37)
[2024-02-04] MEDS ORDERED: ePHEDrine sulfate 50 MG/5 ML SYR ONE (13:37)
--- NOTE | 2024-02-04 13:44 | Operative Report ---
Post Operative Report Pre & Post Diagnosis Operation Date: 02/04/24 11:45 Pre-Op Diagnosis: Spinal Stenosis of Lumbar Region with Radiculopathy Post-Op Diagnosis: Spinal Stenosis of Lumbar Region with Radiculopathy I identified the patient and participated in the time-out.: Yes Procedure Operation Date: 02/04/24 11:45 Actual Procedures #1 lumbar decompression bilaterally facetectomies and foraminotomies L3-L4, L4-5 and L5-S1. #2 posterior spinal fusion L4-L5 L5-S1. #3 placed posterior instrumentation L4-S1. #4 interbody fusion L4-L5 L5-S1. #5 placement Spira 8 x 22 mm at L5-S1 and 10 x 26 mm at L4-5. #6 placement locally harvested morselized autograft and posterior gutters. #7 please infuse collagen sponge combined with Koros in the posterior gutters and Morpheus bone graft interbody space. Surgeon Yuri Kwok, Refractory Bricklayer Damion Joseph Estimated Blood Loss 100 Findings Consistent with Post-Op Diagnosis Specimens None Indications This is a 58-year-old female presents above-mentioned diagnosis after failed course of nonoperative care is here for surgical invention. Description of Procedure Patient met with identified informed consent obtained. Patient was then taken to the operative suite underwent patient placed in a prone position the Maribel table top Keo frame. All bony prominences well-padded eyes inspected to ensure no external pressure for spine. This point the lumbar spine was prepped and draped in normal sterile fashion. Sharp dissection with assistance of Bovie cautery form down to and exposing the lamina transverse processes of L4-L5 and sacral ala bilaterally. From a caudal to cephalad fashion complete laminectomy of L5, L4 and partial laminectomy of L3. Bilateral medial facetectomies and foraminotomies were performed at the L3-L4 L4-5 and L5-S1 levels. This addressed all spinal stenosis. Pedicle screws then placed in L4-5 and S1 levels bilaterally with assistance of fluoroscopy purposes pasquale placed. By way the transforaminal approach on the left complete discectomy of L5-S1 was performed endplates guided to subcortical bleeding bone and an 8 x 22 mm Spira cage filled with Morpheus bone graft tapped in position. Then proceeded to L4-L5 and again by way the transforaminal approach on the left complete discectomy performed endplates guided to subcortical bleeding bone and a 10 x 26 mm Spira cage filled with Morpheus bone graft tapped in position. The rods were then locked in final position bilaterally. The transverse processes of L3 L4-5 burred to subcortical bleeding bone. Infuse collagen sponge combined with Koros and local autograft placed in posterior gutters. 15 round KIRK inserted. The incision was then closed with 1 Vicryl the fascia 2-0 Vicryl subcutaneously and 4 Monocryl for final closure. Steri-Strips sterile dressings placed. Patient waken taken to PACU stable condition. Please note spinal cord monitoring was utilized at the procedure no changes noted. Lastly Damion Joseph was present at the entire surgery and with the patient positioning complex portion of the surgery and possible closure. I attest to the content of the Intraoperative Record and any orders documented therein. Any exceptions are noted below.
[2024-02-04] MEDS: HYDROmorphone INJ 2 MG/ML SYR/VIAL IV PRN (14:17)
--- NOTE | 2024-02-04 15:01 | Anesthesiology Progress Note ---
Date of Service February 04, 2024 Anesthesia Post Procedure Vital Signs Vital Signs: Temp Pulse Pulse Resp BP Pulse Ox O2 Del Method 02/04/24 14:55 92 H 16 104/65 98 Nasal Cannula 02/04/24 14:45 97 H 12 110/61 92 Room Air 02/04/24 14:35 95 H 14 116/63 94 Room Air 02/04/24 14:25 89 14 110/91 99 Oxymask 02/04/24 14:15 85 16 135/80 100 Oxymask 02/04/24 14:07 36.1 C L 92 H 12 121/81 100 Oxymask 02/04/24 10:15 36.5 C 64 20 152/83 H 98 Room Air O2 Flow Rate 02/04/24 14:55 2 02/04/24 14:45 02/04/24 14:35 02/04/24 14:25 3 02/04/24 14:15 5 02/04/24 14:07 5 02/04/24 10:15 Pain Intensity Back: Pain Intensity: 5 Transfer of Care Handoff Completed per policy Notes Mental Status: alert / awake / arousable and participated in evaluation Nausea / Vomiting: adequately controlled Pain: adequately controlled Airway Patency, RR, SpO2: stable & adequate BP & HR: stable & adequate Hydration State: stable & adequate Anesthetic Complications: no major complications apparent and Pt Satisfied with anesthetic care
--- NOTE | 2024-02-04 15:01 | Fluoroscopy Report ---
INTRAOPERATIVE RADIOGRAPHS CLINICAL HISTORY: Lumbar spinal fusion surgery. Fluoro time: 28 seconds Ka,r: 25.97 mGy FINDINGS: 2 spot fluoroscopic views of the lumbar spine are presented. There has been discectomy at L 4-L5 and L5-S1 with laminectomy and posterior fusion at L5-S1. Interpedicular screws are present at a ll levels. The orthopedic hardware appears intact. IMPRESSION: Intraoperative images from lumbar spinal fusion surgery as above. Electronically signed by: Beni Escobar M.D. 02/04/2024 3:00 PM
[2024-02-04] MEDS ORDERED: hydrOXYzine HCl 25 MG TAB PO PRN (15:22)
[2024-02-04] MEDS ORDERED: METOCLOPRAMIDE HCL INJ 5 MG/ML 2 ML VIAL IV PRN (15:22)
[2024-02-04] MEDS ORDERED: NALOXONE HCL 0.4 MG/1 ML VIAL/CARP IV PRN (15:22)
[2024-02-04] MEDS ORDERED: diphenhydrAMINE Capsule 25 MG CAP PO PRN (15:22)
[2024-02-04] MEDS ORDERED: FAMOTIDINE 20 MG TAB PO PRN (15:22)
[2024-02-04] MEDS ORDERED: LORazepam 0.5 MG in SYRINGE 0.25 ML IV PRN (15:22)
[2024-02-04] MEDS ORDERED: ACETAMINOPHEN 1,000 MG/100 ML VIAL IV PRN (15:22)
[2024-02-04] MEDS ORDERED: SOD PHOSPHATE/SOD BIPHOSPHATE ENEMA 132 ML BTL PR PRN (15:22)
[2024-02-04] MEDS ORDERED: HYDROmorphone INJ 1 MG/ML SYRINGE IV PRN (15:22)
[2024-02-04] MEDS ORDERED: ONDANSETRON INJ 2 MG/ML 2 ML VIAL IV PRN (15:22)
[2024-02-04] MEDS ORDERED: HYDROmorphone INJ 0.5 MG/0.5 ML SYR IV PRN (15:22)
[2024-02-04] MEDS ORDERED: DO NOT ADMINISTER FLU VACCINE PRN (15:22)
[2024-02-04] MEDS ORDERED: PROMETHAZINE HCL 12.5 MG in SODIUM CHLORIDE 0.9% 50 ML IV PRN (15:22)
[2024-02-04] MEDS ORDERED: ACETAMINOPHEN 500 MG TAB PO PRN (15:22)
[2024-02-04] MEDS ORDERED: DO NOT ADMINISTER PNEUMOCOCCAL VACCINE PRN (15:22)
[2024-02-04] MEDS ORDERED: MAGNESIUM HYDROXIDE SUSP 30 ML UDC PO PRN (15:22)
[2024-02-04] MEDS ORDERED: ALUMINUM/MAGNESIUM SUSP 30 ML UDC PO PRN (15:22)
[2024-02-04] MEDS ORDERED: bisacodyL 10 MG SUPP PR PRN (15:22)
[2024-02-04] MEDS ORDERED: ONDANSETRON 4 MG OD TAB PO PRN (15:22)
--- NOTE | 2024-02-04 16:49 | Consultation ---
Date of Consultation February 04, 2024 Assessment & Plan (1) S/P spinal surgery: (2) Neurogenic claudication due to lumbar spinal stenosis: Post op day# 0 S/P L3-S1 decompression and fusion by Dr Kwok EBL#100ml Pain management per ortho Wound management per ortho PT/OT as appropriate DVT prophylaxis per ortho Incentive spirometry Monitor H&H for acute blood loss anemia; pre-op Hgb: 14.5 (3) Hypothyroidism: TSH: 2.26 on 01/26/24 Continue levothyroxine (4) Fibromyalgia: (5) Depression: Chronic, Stable Continue buspirone, duloxetine, trazodone, pregabalin DVT Prophylaxis SCDs Disposition per primary service Follows with Pierre TADEO at [facility] for routine care Pt was seen and care coordinated with Dr Ga. See addendum Thank you for this consultation. We will follow the patient with you during their hospital stay. You can reach a [facility] via [facility] Supervising Physician Co-Signing Physician Notes Pt seen and examined by me, care coordinated w/ Kinza Mondragon PA-C, pls refer to her note above for further detail. Pt is 58 yo F with DDD, fibromyalgia, depression, hypothyroidism, history of cervical cancer seen in medical consultation s/p L3-S1 decompression and fusion today by Dr Kwok. Post op patient reports is doing well and pain is controlled. Denies any extremity paresthesias or pain. No nausea or vomiting. Has Wallace catheter in place. Denies fever/chills, N/V/D/C, TORREZ, dizziness, neck pain, CP, SOB, palpitations, cough, abdominal pain. Laying in bed in NAD, somewhat drowsy but able to answer appropriately. Lungs are CTAB, heart sounds regular, abd. soft, nontender, moving extremities. Cont. to closely monitor, as above. MD Sury History of Present Illness Requesting Physician: Dr. Kwok Reason for Consultation: Postop medical management Attending Physician: Yuri Kwok DO History of Present Illness Patient is 58-year-old female with PMH DDD, fibromyalgia, depression, hypothyroidism, history of cervical cancer seen in medical consultation s/p L3- S1 decompression and fusion today by Dr Kwok. Post op patient reports is doing well and pain is controlled. Denies any extremity paresthesias or pain. Sipping on water and tolerating without any nausea or vomiting. Has Wallace catheter in place. Denies fever/chills, N/V/D/C, TORREZ, dizziness, neck pain, CP, SOB, palpitations, cough, rhinorrhea, abdominal pain, extremity weakness, extremity edema, rashes, urinary symptoms. Allergies Allergy/AdvReac Type Severity Reaction Status Date / Time morphine Allergy Hives Verified 02/04/24 10:11 Home Medications Medication Instructions Recorded Confirmed Type duloxetine 60 mg capsule,delayed 60 mg PO QAM 06/21/20 02/04/24 History release (Cymbalta) levothyroxine 25 mcg tablet 25 mcg PO QAM 06/21/20 02/04/24 History pregabalin 150 mg capsule (Lyrica) 150 mg PO BID 06/21/20 02/04/24 History acetaminophen 500 mg tablet 1,000 mg PO Q8H PRN pain 01/11/24 02/04/24 History buspirone 10 mg tablet 10 mg PO BID 02/04/24 02/04/24 History trazodone 100 mg tablet 100 mg PO HS 02/04/24 02/04/24 History Patient History Medical History (Updated 02/04/24 @ 17:03 by Anayeli Mondragon PA-C) Depression Chronic back pain Hypothyroidism Cervical cancer Age 20s s/p hysterectomy Temporomandibular joint disorder + clicking, no locking Fibromyalgia Seizure Childhood, 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 Seasonal allergies Surgical History (Updated 02/04/24 @ 16:49 by Anayeli Mondragon PA-C) History of total bilateral knee replacement B/L TKA (07/23/20): SAB at L4-5, 2 attempts + regional at [facility] History of colonoscopy History of tooth extraction Hx of bilateral oophorectomy History of hysterectomy Hx of eye surgery "for lowering pressure in both eyes" Fusion of spine C-spine ROM limitations Family History Other Cancer Social History Smoking Status: Current every day smoker Tobacco Type: Cigarettes Cigarettes Per Day: 1 ppd; Second Hand Exposure: No; Do You Dip or Chew Tobacco: No; Tobacco Cessation Education Requested by Patient: No Hx Alcohol Use: Yes Alcohol type: wine Hx Substance Use: Yes Last Used Substance: Unknown Substance Use Type Other:: medical marijuana-advised Preferred Language: Mongolian Communication Ability: Effective Vp Respiratory Required: No Beliefs That Will Affect Care: None marital status: Current Living Situation: Spouse Feels Safe at Home: Yes Safety Concerns: Feels Safe At This Time Assistive Devices: Denture - Upper and Glasses Review of Systems Review of Systems: All systems reviewed & are unremarkable except as noted in HPI & below Physical Exam Physical Exam: General: no distress, WDWN Head: normocephalic, atraumatic Eyes: conjunctiva non-injected, anicteric ENT: normal inspection external ears, nose, mucous membranes moist Neck: supple, trachea midline Lungs: clear, no respiratory distress, no wheezing/rhonchi/rales CV: regular rhythm, rate 104, no murmur, no pretibial edema Abd: normal BS, soft, non-tender Ext: no cyanosis, no calf tenderness; bilateral pedal pushes and pulls intact, sensation to light touch intact Neuro: A&O x 3, no focal deficits noted, normal affect Skin: warm, dry Results & Data Vital Signs (Past 12 Hours) Vital Signs Temp Pulse Pulse Resp BP Pulse Ox O2 Del Method 02/04/24 15:45 105 H 16 110/69 92 Nasal Cannula 02/04/24 15:15 98 H 14 106/64 97 Nasal Cannula 02/04/24 15:05 36.4 C L 92 H 15 115/66 98 Nasal Cannula 02/04/24 14:55 92 H 16 104/65 98 Nasal Cannula 02/04/24 14:45 97 H 12 110/61 92 Room Air 02/04/24 14:35 95 H 14 116/63 94 Room Air 02/04/24 14:25 89 14 110/91 99 Oxymask 02/04/24 14:15 85 16 135/80 100 Oxymask 02/04/24 14:07 36.1 C L 92 H 12 121/81 100 Oxymask 02/04/24 10:15 36.5 C 64 20 152/83 H 98 Room Air O2 Flow Rate 02/04/24 15:45 2 02/04/24 15:15 2 02/04/24 15:05 2 02/04/24 14:55 2 02/04/24 14:45 02/04/24 14:35 02/04/24 14:25 3 02/04/24 14:15 5 02/04/24 14:07 5 02/04/24 10:15
[2024-02-04] MEDS: LACTATED RINGER'S 1,000 ML IV SCH (16:52)
--- OUTSIDE RECORDS SUMMARY | 2024-02-04 18:15 | External Medical Summary | Summary of Care ---
Author Name Unknown Organization [facility] Address [address] [place] [address] Phone [phone] Care Team Providers Care Medical Delivery Technician Name Role Phone Theresa Saucedo Primary Care Provider [phone] Encounter Details Date Type Department Care Team (Late st Contact Info) Description 01/28/2024 Orders Only [facility] [address] [place] [address] Lorrie Coronado MD [address] [facility] [place] [id number] Vitamin D insufficiency* Allergies Active Allergy Reactions Criticality Noted Date Comments Morphine Hives 02/06/2016 hives documented as of this encounter (statuses as of 01/28/2024) Medications Medication Sig Dispensed Refills Start Date End Date Status saline ([facility] SALINE NOSE SPRAY) 0.65 % nasal spray Administer 1 Venus into nostril as needed for Congestion. 30 mL 12 10/22/2017 Active Additional Information Patient not taking.Reported on 02/02/2023 fluticasone (FLONASE) 50 MCG/ACT nasal spray SPRAY 2 SPRAYS INTO EACH NOSTRIL EVERY DAY 48 mL 2 04/22/2020 Active Additional Information Patient not taking.Reported on 02/02/2023 Albuterol Sulfate HFA 108 (90 Base) MCG/ACT Inhalation Aerosol SolutionIndications: Acute bronchospasm Inhale 2 Puffs by mouth every 4 hours as needed for Cough, Shortness of Breath or Wheezing. 18 g 0 01/28/2023 Active Additional Information Patient not taking.Reported on 09/24/2023 traZODone HCl 100 MG Oral Tablet (Desyrel)Indications :Insomnia, unspecified type Take 1.5 Tablets by mouth at bedtime. TAKE ONE TABLET BY MOUTH AT BEDTIME 135 Tablet 2 09/24/2023 Active Levothyroxine Sodium 25 MCG Oral Tablet (Levoxyl)Indications :Subclinical hypothyroidism TAKE ONE TABLET BY MOUTH IN THE MORNING at least 30 mins prior to breakfast or other meds 90 Tablet 2 09/24/2023 Active DULoxetine HCl 60 MG Oral Capsule Delayed Release Particles (Cymbalta)Indication s:Fibromyalgia Take 1 Capsule by mouth in the morning. 90 Capsule 3 09/24/2023 Active DULoxetine HCl 30 MG Oral Capsule Delayed Release Particles (Cymbalta) Take 1 Capsule by mouth in the morning. 90 Capsule 3 09/24/2023 Active busPIRone HCl 10 MG Oral Tablet (Buspar)Indications: Grief reaction Take 1 Tablet by mouth in the morning and 1 Tablet before bedtime. 180 Tablet 2 09/24/2023 Active Pregabalin 150 MG Oral Capsule (Lyrica)Indications: Fibromyalgia Take 1 Capsule by mouth in the morning and 1 Capsule before bedtime. 60 Capsule 1 12/16/2023 Active Vitamin D3 50 MCG (2000 UT) Oral Capsule (Cholecalciferol)Ind ications:Vitamin D insufficiency Take 1 Capsule by mouth in the morning. 90 Capsule 1 01/28/2024 Active documented as of this encounter (statuses as of 01/28/2024) Active Problems Problem Noted Date Diagnosed Date Other specified hypothyroidism 07/04/2020 DDD (degenerative disc disease), lumbar 05/23/20 19 MEDICATION USE AGREEMENT 08/04/2018 Overview: Working on weaning off tramadol. (referred to Pain MTM) History of cervical cancer 07/20/2018 Fibromyalgia 09/29/2017 Chronic seasonal allergic rhinitis 09/29/2017 Generalized osteoarthritis of multiple sites documented as of this encounter (statuses as of 01/28/2024) Immunizations Name Administration Dates Next Due Seasonal Influenza, PF, 6 M & above, IM , (FluLaval or Fluzone) 09/25/2019,07/20/2018,07/28/2017 TDAP (age 10 and older)(Boostrix) 09/25/2019 documented as of this encounter Social History Tobacco Use Types Packs/Day Years Used Date Smoking Tobacco: Every Day Cigarettes Smokeless Tobacco: Never Alcohol Use Standard Drinks/Week Comments Yes 0 (1 standard drink = 0.6 oz pur e alcohol) wine rarely AUDIT-C Answer Date Recorded Frequency of Alcohol Consumption Monthly or less 05/18/2019 Average Number of Drinks Not on file 019 Frequency of Binge Drinking Not on file 05/08 PHQ-2 Answer Date Recorded PHQ Adult Total Score 12 01/26/2024 Hunger Vital Sign Answer Date Recorded Within the past 12 months, y ou worried that your food would run out before you got the money to buy more. Never true 09/24/20 23 Within the past 12 months, t he food you bought just didn't last and you didn't have money to get more. Never true 09/24/2023 Sex and Gender Information Value Date Recorded Sex Assigned at Female 09/25/2019 2:40 PM EST Gender Identity Female 09/25/2019 2:40 PM EST Sexual Orientation Straight 09/25/2019 2: 40 PM EST Job Start Date Occupation Industry Not on file Not on file Not on file documented as of this encounter Plan of Treatment Upcoming Encounters Date Type Department Care Team (Late st Contact Info) Description 03/24/2024 7:00 AM EDT Office Visit [facility] [address] [phone] Theresa Saucedo CRNP [address] [id number] Scheduled Procedures Name Priority Associated Diagnoses Date/Ti me COLONOSCOPY FLEXIBLE PROXIMAL DIAGNOSTIC Recall Colon cancer screening Health Maintenance Due Date Last Done Comments Pneumococcal Vaccine: Pediatrics (0 to 5 Years) and At-Risk Patients (6 to 64 Years) (1 of 2 - PCV) 1972 HIV Screening 1981 Hepatitis C Screening 1984 Hepatitis B (1 of 3 - 19+ 3-dose series) 1985 Cologuard 2011 Fecal Occult Blood Test 2011 Sigmoidoscopy 2011 Zoster Vaccines (1 of 2) 2016 Mammogram 01/01/2022 01/01/2021, 05/08, 03/02/2017, Additional history exists COVID-19 Vaccine ( season) 2023 Influenza Vaccine (FLU shot) (#1) 2023 09/25/2019, 07/20/2018, 07/28/2017 Depression, Most Recent Score >= 10 (will fire each visit until score < 10) 01/27/2024 01/26/2024 TSH 01/25/2025 01/26/2024, 10/09, 04/11/2020, Additional history exists Lipid Panel 04/11/2025 04/11/2020, 01/20/2019 Pap Smear 01/04/2027 01/04/2024, 05/08, 05/18/2019 Diabetes Screening 01/25/2027 01/26/2024, 0 01/08/2023, 10/29/2021, Additional history exists Colonoscopy 09/02/2028 09/02/2018, 09/02/2018 Colorectal Cancer Screening 09/02/2028 Cervical Cancer Screening 01/04/2029 HPV/Co-Test 01/04/2029 01/04/2024 DTaP,Tdap,and Td Vaccines (2 - Td or Tdap) 09/25/2029 09/25/2019 GARDASIL-HPV IMMUNIZATION SERIES Aged Out No longer eligible based on patient's age to complete this topic MENINGOCOCCAL (MENACTRA/MENVEO) Aged Out No longer eligible based on patient's age to complete this topic documented as of this encounter Medical Devices Not on filedocumented as of this encounter Visit Diagnoses Diagnosis Vitamin D insufficiency- Primary Unspecified vitamin D deficiency documented in this encounter Care Teams Medical Delivery Technician Relationship Specialty Start Date End Date Theresa Saucedo CRNP [address] [id number] PCP - General Nurse Practitioner 11/04/22 documented as of this encounter
[2024-02-04] MEDS: busPIRone 5 MG TAB PO SCH (20:13)
[2024-02-04] MEDS: traZODone HCL 100 MG TAB PO SCH (20:13)
[2024-02-04] MEDS: DOCUSATE SODIUM/SENNA 50/8.6MG TAB PO SCH (20:14)
[2024-02-04] MEDS: PREGABALIN 150 MG CAP PO SCH (20:16)
[2024-02-04] MEDS ORDERED: traZODone HCL 50 MG TAB PO SCH (21:00)
[2024-02-04] MEDS: oxyCODONE HCL IR 5 MG TAB (IMMEDIATE RELEASE) PO PRN (22:13)
[2024-02-05] MEDS: LORazepam 0.5 MG TAB PO PRN (02:14)
[2024-02-05] MEDS: POLYETHYLENE (MIRALAX) 17 GM PACK PO SCH (05:42)
[2024-02-05] MEDS: LEVOTHYROXINE SODIUM 25 MCG TABLET PO SCH (05:42)
[2024-02-05 05:55] LABS: Hematocrit (blood only) 30.4 % (37.0-47.0); Hemoglobin 10.3 g/dl (12.0-16.0); Immature Granulocytes # (auto) 0.02 K/uL (0.01-0.20); Immature Granulocytes % (auto) 0.2 %; Lymphocytes # (auto) 0.77 K/uL (1.20-3.40); Lymphocytes % (auto) 9.3 %; Mean Corpuscular Hemoglobin 31.3 pg (25.0-34.0); Mean Corpuscular Hgb Conc 33.9 g/dL (32.0-36.0); Mean Corpuscular Volume 92.4 fL (80.0-100.0); Monocytes # (auto) 0.61 K/uL (0.11-0.59); Monocytes % (auto) 7.4 %; Neutrophils # (auto) 6.89 K/uL (1.40-6.50); Neutrophils % (auto) 83.1 %; Platelet Count 232 K/uL (130-400); RDW Standard Deviation 44.3 fL (36.4-46.3); Red Blood Count 3.29 M/uL (4.20-5.40); White Blood Count 8.29 K/ul (4.8-10.8)
[2024-02-05 06:15] LABS: BUN Creatinine Ratio 14.1 (10-20); Calcium 8.3 mg/dl (8.6-10.3); Creatinine Clr Calc Pharmacy 92.2 ml/min; Est GFR (African American) 114.8 ml/min; Est GFR (Non-African American) 99.1 ml/min; Potassium 4.3 mmol/L (3.5-5.1)
--- NOTE | 2024-02-05 07:50 | Hospitalist Progress Note ---
Date of Service February 05, 2024 Assessment & Plan (1) S/P spinal surgery: (2) Neurogenic claudication due to lumbar spinal stenosis: Plan: Post op day# 1 S/P L3-S1 decompression and fusion by Dr Kwok Pain management per ortho Wound management per ortho PT/OT as appropriate DVT prophylaxis per ortho Incentive spirometry Monitor H&H for acute blood loss anemia; pre-op Hgb: 14.5 Acute blood loss anemia, post-op vs dilutional - post-op Hgb 10.3 - cont. to monitor - no need for blood transfusion at this time (3) Hypothyroidism: Plan: TSH: 2.26 on 01/26/24 Continue levothyroxine (4) Fibromyalgia: (5) Depression: Plan: Chronic, Stable Continue buspirone, duloxetine, trazodone, pregabalin DVT Prophylaxis - SCDs Disposition per primary service Follows with Pierre TADEO at [facility] for routine care Thank you for this consultation. We will follow the patient with you during their hospital stay. You can reach a member of the [facility] Hospitalist Team 31/05 via [email or web address] Admission and Anticipated Discharge Date Admission Date: February 04, 2024 Subjective Pt seen in follow up of med. consult, pt s/p spinal surgery yesterday Laying in bed in NAD, reports feeling well Says she ambulated in hallway, and catheter was removed, she already voided. passing gas, no BM Pain is controlled Denies any dizziness or lightheadedness Review of Systems Review of Systems: All systems reviewed & are unremarkable except as noted in Subjective Physical Exam Physical Exam: General: no distress, WDWN Head: normocephalic, atraumatic Eyes: conjunctiva non-injected, anicteric ENT: normal inspection external ears, nose, mucous membranes moist Neck: supple Lungs: clear, no respiratory distress, no wheezing/rhonchi/rales CV: regular rhythm, no murmur, no pretibial edema Abd: normal BS, soft, non-tender Ext: no LE edema, moves extremities Neuro: A&O x 3, no focal deficits noted, normal affect Skin: warm, dry Results & Data Results & Data Vital Signs (Past 12 Hours) Vital Signs Temp Pulse Resp BP Pulse Ox O2 Del Method O2 Flow Rate 02/05/24 02:13 36.9 C 77 19 102/58 L 94 Nasal Cannula 2 02/04/24 22:27 Nasal Cannula 2 02/04/24 22:07 36.4 C L 72 18 101/63 94 Room Air 02/04/24 21:11 Nasal Cannula 2 Laboratory Results 02/05/24 02/04/24 Range/Units 05:20 10:03 WBC 8.29 (4.8-10.8) K/ul RBC 3.29 L (4.20-5.40) M/uL Hgb 10.3 L (12.0-16.0) g/dl Hct 30.4 L (37.0-47.0) % MCV 92.4 (80.0-100.0) fL MCH 31.3 (25.0-34.0) pg MCHC 33.9 (32.0-36.0) g/dL RDW Std Deviation 44.3 (36.4-46.3) fL RDW Coeff of Ni 13.0 (11.5-14.5) % Plt Count 232 (130-400) K/uL MPV 10.0 (9.4-12.4) fL Immature Gran % (Auto) 0.2 % Neut % (Auto) 83.1 % Lymph % (Auto) 9.3 % Hitchcock % (Auto) 7.4 % Eos % (Auto) 0.0 % Baso % (Auto) 0.0 % Neut # (Auto) 6.89 H (1.40-6.50) K/uL Lymph # (Auto) 0.77 L (1.20-3.40) K/uL Hitchcock # (Auto) 0.61 H (0.11-0.59) K/uL Eos # (Auto) 0.00 (0.00-0.50) K/uL Baso # (Auto) 0.00 (0.00-0.20) K/uL Immature Gran # (Auto) 0.02 (0.01-0.20) K/uL Sodium 139 (136-145) mmol/L Potassium 4.3 (3.5-5.1) mmol/L Chloride 106 (98-107) mmol/L Carbon Dioxide 28 (21-32) mmol/L Anion Gap 5 (3-11) BUN 9 (6-23) mg/dl Creatinine 0.64 (0.6-1.2) mg/dl Est Cr Clr Drug Dosing 92.2 ml/min Est GFR ( Amer) 114.8 ml/min Est GFR (Non-Af Amer) 99.1 ml/min BUN/Creatinine Ratio 14.1 (10-20) Glucose 126 H (70-99(Fasting)) mg/dl Calcium 8.3 L (8.6-10.3) mg/dl Blood Type A Positive Antibody Screen NEGATIVE Crossmatch See Detail Medications Administered Current Inpatient Medications Acetaminophen (Acetaminophen 500 Mg Tab) 1,000 mg PO Q8H PRN PRN Reason: MILD Pain Scale 1,2,3 & Pre PT Stop: 03/05/24 15:21 Al Hydrox/Mg Hydrox/Simethicone (Aluminum/Magnesium Susp 30 Ml Udc) 30 ml PO Q6H PRN PRN Reason: Dyspepsia Stop: 03/05/24 15:21 Bisacodyl (Bisacodyl 10 Mg Supp) 10 mg [place] DAILY PRN PRN Reason: Constipation Stop: 03/05/24 15:21 Buspirone HCl (Buspirone 5 Mg Tab) 10 mg PO BID [facility] Stop: 03/05/24 20:59 Last Admin: 02/04/24 20:13 Dose: 10 mg Diphenhydramine HCl (Diphenhydramine Capsule 25 Mg Cap) 25 mg PO Q6H PRN PRN Reason: Allergic Rhinitis/Insomnia Stop: 03/05/24 15:21 Duloxetine HCl (Duloxetine Hcl 60 Mg Cap) 60 mg PO QAM [facility] Stop: 03/06/24 08:59 Famotidine (Famotidine 20 Mg Tab) 20 mg PO Q12H PRN PRN Reason: Dyspepsia Stop: 03/05/24 15:21 Hydromorphone HCl (Hydromorphone Inj 0.5 Mg/0.5 Ml Syr) 0.5 mg IV Q3H PRN PRN Reason: MODERATE Pain (Scale 4,5,6) & Pre PT Stop: 02/18/24 15:21 Hydromorphone HCl (Hydromorphone Inj 1 Mg/Ml Syringe) 1 mg IV Q3H PRN PRN Reason: SEVERE Pain (Scale 7,8,9,10) Stop: 02/18/24 15:21 Hydroxyzine HCl (Hydroxyzine Hcl 25 Mg Tab) 25 mg PO Q8H PRN PRN Reason: Anxiety Stop: 03/05/24 15:21 Promethazine HCl 12.5 mg/ (Sodium Chloride) 50.5 mls @ 202 mls/hr IV Q6H PRN PRN Reason: Nausea &/or Vomiting Stop: 03/05/24 15:21 Acetaminophen (Ofirmev) 1,000 mg in 100 mls @ 400 mls/hr IV Q8H PRN PRN Reason: Pain Rating 1-3 & Pre PT Stop: 02/05/24 15:23 Lorazepam 0.5 mg/ Syringe 0.5 mls @ 2 mls/min IV Q8H PRN; Protocol PRN Reason: Sedation/Anxiety Stop: 03/05/24 15:21 Dexamethasone 6 mg/ Syringe 1.5 mls @ 1 mls/min IV DAILY [facility] Stop: 02/07/24 09:02 Influenza Virus Vaccine Quadrival (Do Not Administer Flu Vaccine) 1 each N/A PRN PRN PRN Reason: Notification Stop: 03/05/24 15:21 Levothyroxine Sodium ([facility]othyroxine S[facility] 25 [facility]g [facility]t) [facility] Stop: 03/06/24 06:29 Last Admin: 02/05/24 05:42 Dose: 25 mcg Lorazepam (Lorazepam 0.5 Mg Tab) 0.5 mg PO Q8H PRN PRN Reason: Sedation/Anxiety Stop: 03/05/24 15:21 Last Admin: 02/05/24 02:14 Dose: 0.5 mg Magnesium Hydroxide (Magnesium Hydroxide Susp 30 Ml Udc) 30 ml PO Q24H PRN PRN Reason: Constipation Stop: 03/05/24 15:21 Metoclopramide HCl (Metoclopramide Hcl Inj 5 Mg/Ml 2 Ml Vial) 10 mg IV Q6H PRN PRN Reason: Nausea &/or Vomiting Stop: 03/05/24 15:21 Naloxone HCl (Naloxone Hcl 0.4 Mg/1 Ml Vial/Carp) 0.1 mg IV Q5M PRN PRN Reason: Oversedation/Resp depression Stop: 03/05/24 15:21 Ondansetron HCl (Ondansetron Inj 2 Mg/Ml 2 Ml Vial) 4 mg IV Q6H PRN PRN Reason: Nausea &/or Vomiting Stop: 03/05/24 15:21 Ondansetron HCl (Ondansetron 4 Mg Od Tab) 4 mg PO Q6H PRN PRN Reason: Nausea Stop: 03/05/24 15:21 Oxycodone HCl (Oxycodone Hcl Ir 5 Mg Tab (Immediate Release)) 5 - 10 mg PO Q4H PRN PRN Reason: Pain & Pre PT Stop: 02/18/24 15:21 Last Admin: 02/05/24 04:06 Dose: 10 mg Pneumococcal Polyvalent Vaccine (Do Not Administer Pneumococcal Vaccine) 1 each N/A PRN PRN PRN Reason: Notification Stop: 03/05/24 15:21 Polyethylene Glycol (Polyethylene (Miralax) 17 Gm Pack) 17 gm PO Q6 [facility] Stop: 03/06/24 05:59 Last Admin: 02/05/24 05:42 Dose: 17 gm Pregabalin (Pregabalin 150 Mg Cap) 150 mg PO BID [facility] Stop: 03/05/24 20:59 Last Admin: 02/04/24 20:16 Dose: 150 mg Senna/Docusate Sodium (Docusate Sodium/Senna 50/8.6mg Tab) 2 tab PO HS [facility] Stop: 03/05/24 20:59 Last Admin: 02/04/24 20:14 Dose: 2 tab Sodium Biphosphate/Sodium Phosphate (Sod Phosphate/Sod Biphosphate Enema 132 Ml Btl) 132 ml ME ONE PRN PRN Reason: Constipation Stop: 03/05/24 15:21 Tramadol HCl (Tramadol Hcl 50 Mg Tablet) 50 - 100 mg PO Q4H PRN PRN Reason: Moderate-Severe pain & Pre PT Stop: 03/05/24 15:21 Trazodone HCl (Trazodone Hcl 100 Mg Tab) 100 mg PO HS [facility] Stop: 03/05/24 20:59 Last Admin: 02/04/24 20:13 Dose: 100 mg
[2024-02-05] MEDS: DULoxetine HCL 60 MG CAP PO SCH (08:11)
--- NOTE | 2024-02-05 08:11 | Orthopedic Progress Note ---
Date of Service February 05, 2024 Assessment & Plan (1) Neurogenic claudication due to lumbar spinal stenosis: Plan: At this time we will initiate physical therapy monitor KIRK output anticipate discharge home next few days. Admission and Anticipated Discharge Date Admission Date: February 04, 2024 Subjective Back pain controlled leg pain markedly improved Physical Exam Physical Exam: Patient is in the chair at the bedside. Discussed with testing. He was comfortable. Results & Data Vital Signs (Past 12 Hours) Vital Signs Temp Pulse Resp BP Pulse Ox O2 Del Method O2 Flow Rate 02/05/24 08:02 36.6 C 66 18 104/64 97 Room Air 02/05/24 07:45 Room Air 02/05/24 02:13 36.9 C 77 19 102/58 L 94 Nasal Cannula 2 02/04/24 22:27 Nasal Cannula 2 02/04/24 22:07 36.4 C L 72 18 101/63 94 Room Air 02/04/24 21:11 Nasal Cannula 2
[2024-02-05] MEDS: dexAMETHasone 6 MG in SYRINGE 0 ML IV SCH (08:12)
[2024-02-05] MEDS ORDERED: DULoxetine HCL 30 MG CAP PO SCH (09:00)
[2024-02-05] MEDS: traMADol HCL 50 MG TABLET PO PRN (14:40)
[2024-02-06 06:17] LABS: Hematocrit (blood only) 31.3 % (37.0-47.0); Hemoglobin 10.4 g/dl (12.0-16.0); Mean Corpuscular Hgb Conc 33.2 g/dL (32.0-36.0); Mean Corpuscular Volume 93.4 fL (80.0-100.0); Mean Platelet Volume 10.4 fL (9.4-12.4); Platelet Count 209 K/uL (130-400); RDW Coefficient of Variation 13.2 % (11.5-14.5); RDW Standard Deviation 45.3 fL (36.4-46.3); Red Blood Count 3.35 M/uL (4.20-5.40); White Blood Count 8.87 K/ul (4.8-10.8)
[2024-02-06 06:52] LABS: BUN Creatinine Ratio 19.7 (10-20); Calcium 8.5 mg/dl (8.6-10.3); Creatinine Clr Calc Pharmacy 89.4 ml/min; Est GFR (African American) 113.7 ml/min; Est GFR (Non-African American) 98.1 ml/min; Magnesium 1.9 mg/dl (1.7-2.4); Phosphorus 2.3 mg/dl (2.5-4.9); Potassium 3.9 mmol/L (3.5-5.1)
--- NOTE | 2024-02-06 07:27 | Hospitalist Progress Note ---
Date of Service February 06, 2024 Assessment & Plan (1) S/P spinal surgery: (2) Neurogenic claudication due to lumbar spinal stenosis: Plan: Post op day# 2 S/P L3-S1 decompression and fusion by Dr Kwok Pain management per ortho Wound management per ortho PT/OT as appropriate DVT prophylaxis per ortho Incentive spirometry Monitor H&H for acute blood loss anemia; pre-op Hgb: 14.5 Acute blood loss anemia, post-op vs dilutional - post-op Hgb 10.3, currently stable from yesterday - cont. to monitor - no need for blood transfusion at this time (3) Hypothyroidism: Plan: TSH: 2.26 on 01/26/24 Continue levothyroxine (4) Fibromyalgia: (5) Depression: Plan: Chronic, Stable Continue buspirone, duloxetine, trazodone, pregabalin DVT Prophylaxis - SCDs Disposition per primary service Follows with Pierre TADEO at [facility] for routine care Thank you for this consultation. We will follow the patient with you during their hospital stay. You can reach a member of the [facility] Hospitalist Team 31/05 via [email or web address] Admission and Anticipated Discharge Date Admission Date: February 04, 2024 Subjective Pt seen in follow up of med. consult, pt s/p spinal surgery Sitting up in chair in NAD, reports feeling well, eating breakfast Says she ambulated in hallway, Pain is controlled Denies any dizziness or lightheadedness Voiding w/o difficulty and having BMs Review of Systems Review of Systems: All systems reviewed & are unremarkable except as noted in Subjective Physical Exam Physical Exam: General: no distress, WDWN Head: normocephalic, atraumatic Eyes: conjunctiva non-injected, anicteric ENT: normal inspection external ears, nose, mucous membranes moist Neck: supple Lungs: clear, no respiratory distress, no wheezing/rhonchi/rales CV: regular rhythm, no murmur, no pretibial edema Abd: normal BS, soft, non-tender Ext: no LE edema, moves extremities Neuro: A&O x 3, no focal deficits noted, normal affect Skin: warm, dry Results & Data Results & Data Vital Signs (Past 12 Hours) Vital Signs Temp Pulse Resp BP Pulse Ox O2 Del Method 02/05/24 20:23 Room Air 02/05/24 20:16 36.9 C 71 14 101/58 L 93 Room Air Laboratory Results 02/06/24 02/04/24 Range/Units 05:21 10:03 WBC 8.87 (4.8-10.8) K/ul RBC 3.35 L (4.20-5.40) M/uL Hgb 10.4 L (12.0-16.0) g/dl Hct 31.3 L (37.0-47.0) % MCV 93.4 (80.0-100.0) fL MCH 31.0 (25.0-34.0) pg MCHC 33.2 (32.0-36.0) g/dL RDW Std Deviation 45.3 (36.4-46.3) fL RDW Coeff of Ni 13.2 (11.5-14.5) % Plt Count 209 (130-400) K/uL MPV 10.4 (9.4-12.4) fL Sodium 140 (136-145) mmol/L Potassium 3.9 (3.5-5.1) mmol/L Chloride 106 (98-107) mmol/L Carbon Dioxide 31 (21-32) mmol/L Anion Gap 3 (3-11) BUN 13 (6-23) mg/dl Creatinine 0.66 (0.6-1.2) mg/dl Est Cr Clr Drug Dosing 89.4 ml/min Est GFR ( Amer) 113.7 ml/min Est GFR (Non-Af Amer) 98.1 ml/min BUN/Creatinine Ratio 19.7 (10-20) Glucose 98 (70-99(Fasting)) mg/dl Calcium 8.5 L (8.6-10.3) mg/dl Phosphorus 2.3 L (2.5-4.9) mg/dl Magnesium 1.9 (1.7-2.4) mg/dl Crossmatch See Detail Medications Administered Current Inpatient Medications Acetaminophen (Acetaminophen 500 Mg Tab) 1,000 mg PO Q8H PRN PRN Reason: MILD Pain Scale 1,2,3 & Pre PT Stop: 03/05/24 15:21 Al Hydrox/Mg Hydrox/Simethicone (Aluminum/Magnesium Susp 30 Ml Udc) 30 ml PO Q6H PRN PRN Reason: Dyspepsia Stop: 03/05/24 15:21 Bisacodyl (Bisacodyl 10 Mg Supp) 10 mg [place] DAILY PRN PRN Reason: Constipation Stop: 03/05/24 15:21 Buspirone HCl (Buspirone 5 Mg Tab) 10 mg PO BID [facility] Stop: 03/05/24 20:59 Last Admin: 02/05/24 20:23 Dose: 10 mg Diphenhydramine HCl (Diphenhydramine Capsule 25 Mg Cap) 25 mg PO Q6H PRN PRN Reason: Allergic Rhinitis/Insomnia Stop: 03/05/24 15:21 Duloxetine HCl (Duloxetine Hcl 60 Mg Cap) 60 mg PO QAM [facility] Stop: 03/06/24 08:59 Last Admin: 02/05/24 08:11 Dose: 60 mg Famotidine (Famotidine 20 Mg Tab) 20 mg PO Q12H PRN PRN Reason: Dyspepsia Stop: 03/05/24 15:21 Hydromorphone HCl (Hydromorphone Inj 0.5 Mg/0.5 Ml Syr) 0.5 mg IV Q3H PRN PRN Reason: MODERATE Pain (Scale 4,5,6) & Pre PT Stop: 02/18/24 15:21 Hydromorphone HCl (Hydromorphone Inj 1 Mg/Ml Syringe) 1 mg IV Q3H PRN PRN Reason: SEVERE Pain (Scale 7,8,9,10) Stop: 02/18/24 15:21 Hydroxyzine HCl (Hydroxyzine Hcl 25 Mg Tab) 25 mg PO Q8H PRN PRN Reason: Anxiety Stop: 03/05/24 15:21 Promethazine HCl 12.5 mg/ (Sodium Chloride) 50.5 mls @ 202 mls/hr IV Q6H PRN PRN Reason: Nausea &/or Vomiting Stop: 03/05/24 15:21 Lorazepam 0.5 mg/ Syringe 0.5 mls @ 2 mls/min IV Q8H PRN; Protocol PRN Reason: Sedation/Anxiety Stop: 03/05/24 15:21 Dexamethasone 6 mg/ Syringe 1.5 mls @ 1 mls/min IV DAILY [facility] Stop: 02/07/24 09:02 Last Admin: 02/05/24 08:12 Dose: 1 mls/min Influenza Virus Vaccine Quadrival (Do Not Administer Flu Vaccine) 1 each N/A PRN PRN PRN Reason: Notification Stop: 03/05/24 15:21 Levothyroxine Sodium (Levothyroxine Sodium 25 Mcg Tablet) 25 mcg PO DAILYBB [facility] Stop: 03/06/24 06:29 Last Admin: 02/06/24 05:06 Dose: 25 mcg Lorazepam (Lorazepam 0.5 Mg Tab) 0.5 mg PO Q8H PRN PRN Reason: Sedation/Anxiety Stop: 03/05/24 15:21 Last Admin: 02/05/24 02:14 Dose: 0.5 mg Magnesium Hydroxide (Magnesium Hydroxide Susp 30 Ml Udc) 30 ml PO Q24H PRN PRN Reason: Constipation Stop: 03/05/24 15:21 Metoclopramide HCl (Metoclopramide Hcl Inj 5 Mg/Ml 2 Ml Vial) 10 mg IV Q6H PRN PRN Reason: Nausea &/or Vomiting Stop: 03/05/24 15:21 Naloxone HCl (Naloxone Hcl 0.4 Mg/1 Ml Vial/Carp) 0.1 mg IV Q5M PRN PRN Reason: Oversedation/Resp depression Stop: 03/05/24 15:21 Ondansetron HCl (Ondansetron Inj 2 Mg/Ml 2 Ml Vial) 4 mg IV Q6H PRN PRN Reason: Nausea &/or Vomiting Stop: 03/05/24 15:21 Ondansetron HCl (Ondansetron 4 Mg Od Tab) 4 mg PO Q6H PRN PRN Reason: Nausea Stop: 03/05/24 15:21 Oxycodone HCl (Oxycodone Hcl Ir 5 Mg Tab (Immediate Release)) 5 - 10 mg PO Q4H PRN PRN Reason: Pain & Pre PT Stop: 02/18/24 15:21 Last Admin: 02/06/24 02:42 Dose: 5 mg Pneumococcal Polyvalent Vaccine (Do Not Administer Pneumococcal Vaccine) 1 each N/A PRN PRN PRN Reason: Notification Stop: 03/05/24 15:21 Pregabalin (Pregabalin 150 Mg Cap) 150 mg PO BID [facility] Stop: 03/05/24 20:59 Last Admin: 02/05/24 20:23 Dose: 150 mg Senna/Docusate Sodium (Docusate Sodium/Senna 50/8.6mg Tab) 2 tab PO HS [facility] Stop: 03/05/24 20:59 Last Admin: 02/05/24 20:23 Dose: 2 tab Sodium Biphosphate/Sodium Phosphate (Sod Phosphate/Sod Biphosphate Enema 132 Ml Btl) 132 ml [place] ONE PRN PRN Reason: Constipation Stop: 03/05/24 15:21 Tramadol HCl (Tramadol Hcl 50 Mg Tablet) 50 - 100 mg PO Q4H PRN PRN Reason: Moderate-Severe pain & Pre PT Stop: 03/05/24 15:21 Last Admin: 02/05/24 14:40 Dose: 100 mg Trazodone HCl (Trazodone Hcl 100 Mg Tab) 100 mg PO HS [facility] Stop: 03/05/24 20:59 Last Admin: 02/05/24 20:23 Dose: 100 mg
--- NOTE | 2024-02-06 10:57 | Discharge Summary ---
Date of Service February 06, 2024 Admission HPI Per Admitting Provider This is a 58-year-old female who presents with chronic persistent back and leg pain after failing course of nonoperative care she is here for surgical invention. Principal Diagnosis Lumbar spinal stenosis with neurogenic claudication Discharge Data Allergies Allergy/AdvReac Type Severity Reaction Status Date / Time morphine Allergy Hives Verified 02/04/24 10:11 Consultations 02/04/24 15:22 Consult Hospitalist Routine Procedures Performed Operation Date: 02/04/24 11:45 Actual Procedures p L4-S1 Decompression and Fusion, Spinal Cord Monitoring(Not Applicable) - Yuri Kwok DO Ordered Studies 02/04/24 07:00 FL lumbar spine 2-3V Routine Hospital Course (1) Neurogenic claudication due to lumbar spinal stenosis: Patient with lumbar decompression fusion trial as well as taken orthopedic for postoperative. Postop day #1 she is up and ambulating. Postop day #2. Back pain controlled. KIRK drain decreased probably. Excellent strength testing. Simply discharged home. Discharge orders instructions found in chart for further review. Total Time Total Time Spent Total Time Spent (In Minutes): 20 minutes Discharge Plan Discharge Items Patient Disposition: Home - Self-Care Reason For Visit: POSTOP Discharge Diagnosis: Lumbar spinal stenosis with neurogenic claudication Activity: As commented below Non-emergency contact: Primary Care Provider Call non-emergency contact if: you have any medication questions Follow-up/Referrals: Theresa Saucedo CRNP [Primary Care Provider] - Diet: Regular Addtl Attending Provider Instructions: ACTIVITY RECOMMENDATIONS: SELF CARE INSTRUCTIONS AFTER THORACIC/LUMBAR FUSIONS 1. You may walk to your tolerance. It is good exercise for your legs and back. Expect some back and intermittent leg aches and pains. 2. You may perform "counter-top" level activities (make a sandwich, alin with a project, etc.). 3. No bending or lifting of more than 10 pounds or back twisting of any nature (roll like a log when turning in bed). 4. You may ride in a car for 20-30 minutes at a time. No driving until after your first visit with your doctor. 5. Frequent changes of position and restricting sitting to 30 minutes at a time will help limit the amount of back spasms and stiffness you may experience. 6. You may discontinue the use of ambulatory aids (cane, crutches, etc.) once your strength and confidence allow. 7. You may yield improvement engineer the shower and let water strike your incision when you arrive home at least once daily. Do not take a tub bath, sit in a hot tub or go into a swimming pool until after your first recheck in the office. SPECIAL CARE INSTRUCTIONS: VERY IMPORTANT TO READ AND REVIEW A. Your surgical incision has been closed with a cosmetic suture under the skin that will dissolve in about 6 weeks. In 14 days, you can use a pair of clean scissors and cut the suture that is left outside of the skin at the ends of your incision. 1. The small skin tapes can be removed 7 days after surgery if they have not fallen off by that point. 2. You may keep the wound open to air as much as possible to promote healing after post-op day number 5 unless told otherwise by your doctor. 3. If you think the wound looks like it is becoming infected (redness or worsening drainage) and/or you are experiencing fever, chill or worsening back pain and muscle spasms, contact the office so that we may evaluate you as soon as possible. B. Complications are uncommon, but please contact us if you have any signs or symptoms of: 1. wound infection (fever higher than 102.5 degrees F, redness, separation of wound, drainage, or increasing pain from the incision) 2. blood clots in legs (pain, swelling, redness and warmth in legs) 3. urinary tract infection (fever higher than 102.5 degrees F, burning upon urination or increased frequency of urination) 4. nerve problems (inability to walk on your toes or heels, numbness, loss of bowel or bladder control) 5. any other symptoms that concern you C. Please call the office at if you have any concerns or questions about your operation or recovery. D. No smoking! Smoking drastically decreases the chance of a solid fusion. E. Do not take any anti-inflammatory medications (Indocin, Advil, Motrin, Aspirin, Naprosyn, etc.) as these may inhibit the chance of a solid fusion. Tylenol is okay to take for pain. MANAGING PAIN AFTER SPINAL SURGERY 1. Narcotic medication is intended for short-term use and will be provided for surgical pain. Surgical pain usually lasts for a period of 4-6 weeks. Narcotic medication includes Percocet, Vicodin, Darvocet, Tylenol #3 or Lortab. 2. Longer-term pain is more appropriately treated with non-narcotic medication such as Tylenol ES. 3. Muscle spasm is not appropriately treated with narcotics. Muscle relaxers such as Soma, Flexeril or Skelaxin can be used along with Tylenol ES. 4. Remember that we all live with some "aches and pains". This is not unusual or uncommon after an injury or as we get older. a. Back pain is expected and may include muscle spasms for 4 to 6 weeks after surgery. The pain should gradually improve. If the pain worsens for no apparent reason, please contact the office. b. Intermittent leg pain may also be experienced and should not be concerned about unless it worsens for no apparent reason. If so, please contact the office. 5. We will provide appropriate medication within the normal guidelines of their prescribed use. We will also be very cautious and aware of potential abuse and extended duration of patients' medication needs. a. Pain medications are for your comfort and to assist with sleep and rest so that the tissue can heal. They are not provided in order to return to normal activity and should not be used through the day. To do so or worsening pain at night can result from ongoing tissue damage and development of tolerance to the prescribed medicine. 6. Please allow 2-3 days to process refills. Prescriptions will not be mailed but must be picked up at the office. FOLLOW UP VISIT: Keep your scheduled follow-up appointment. Any questions, please call the office at . Pending Studies at Discharge: No Stand-Alone Forms: My [facility], Smoking Cessation Medications and [place] Order Prescriptions: New tramadol 50 mg tablet 50 mg PO Q6H PRN (Reason: pain, moderate) Qty: 30 0RF oxycodone 5 mg tablet 5 mg PO Q6H PRN (Reason: pain) Qty: 30 0RF Continued levothyroxine 25 mcg Tablet 25 mcg PO QAM duloxetine [Cymbalta] 60 mg Capsule,Delayed Release(Dr/Ec) 60 mg PO QAM Patient Comments: takes with 30mg for total of 90mg pregabalin [Lyrica] 150 mg Capsule 150 mg PO BID acetaminophen 500 mg tablet 1,000 mg PO Q8H PRN (Reason: pain) trazodone 100 mg tablet 100 mg PO HS buspirone 10 mg tablet 10 mg PO BID Discharge Orders: Discharge Order (Routine); Ordered 02/06/24 Ordered By: Yuri Kwok Admission Data Admit Date/Time: 02/04/24 16:02 Attending Provider: Yuri Kwok Admit Provider: Yuri Kwok Primary Care Provider: Theresa Saucedo Other Providers: Joyce Felix
[2024-02-06] MEDS: oxyCODONE IR HOME PACK PO ONE (12:36)
== END 2024-02-06 12:46 | disposition home or self-care (01) | DRG 454 ==
LOC: ASU 09:53 → 3N 16:02

== ENCOUNTER 2024-11-06 09:37 | Inpatient (IN) ==
--- NOTE | 2024-11-06 11:30 | Emergency Department Note ---
History of Present Illness General Chief complaint: Abdominal Pain Stated complaint: RT ABD PAIN Time Seen by Provider: 11/06/24 11:03 History of Present Illness Maximum Pain Intensity: 10 Patient is a 59-year-old female with past medical history significant for chronic low back pain, depression, hypothyroidism, among other chronic medical problems who presents to the emergency department for evaluation of abdominal pain. Patient notes that she helped to lift her [id number] several weeks ago, and injured her back. She was seen by Dr. Kwok, and has an MRI for her back scheduled tomorrow. She has been having pain in the mid to low back since the incident, but in the last 3 to 4 days, has developed pain in the right upper abdomen that radiates to the right lower quadrant. Pain is a constant, aching pain. It is worse with movement. She states she cannot lay on the right side. She has been nauseous, and vomited twice, once 2 days ago, and once this morning. Denies fever, chills, urinary symptoms or diarrhea. She has not taken anything for her abdominal pain. History of total hysterectomy for cervical cancer many years ago. She currently rates her pain a 10/10. Home Medications Medication Instructions Recorded Confirmed Type duloxetine 60 mg capsule,delayed 60 mg PO QAM 06/21/20 11/06/24 History release (Cymbalta) levothyroxine 25 mcg tablet 25 mcg PO QAM 06/21/20 11/06/24 History pregabalin 150 mg capsule (Lyrica) 150 mg PO BID 06/21/20 11/06/24 History acetaminophen 500 mg tablet 1,000 mg PO Q8H PRN pain 01/11/24 11/06/24 History trazodone 100 mg tablet 150 mg PO HS 02/04/24 11/06/24 History bupropion HCl 150 mg 24 hr tablet, 150 mg PO DAILY 11/06/24 11/06/24 History extended release duloxetine 30 mg capsule,delayed 30 mg PO DAILY 11/06/24 11/06/24 History release Allergies Allergy/AdvReac Type Severity Reaction Status Date / Time morphine Allergy Hives Verified 02/04/24 10:11 Past Med/Surg History Problem List Right sided abdominal pain Intra-abdominal abscess (Acute) Acute cholecystitis (Acute) Medical History Anxiety Depression Hypothyroidism Fibromyalgia Chronic back pain Cervical cancer Age 20s s/p hysterectomy Temporomandibular joint disorder + clicking, no locking Seizure Childhood, 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 Seasonal allergies Surgical History S/P spinal surgery History of total bilateral knee replacement B/L TKA (07/23/20): SAB at L4-5, 2 attempts + regional at [facility] History of colonoscopy History of tooth extraction Hx of bilateral oophorectomy History of hysterectomy Hx of eye surgery "for lowering pressure in both eyes" Fusion of spine C-spine ROM limitations Family History Other Cancer Social History (Updated 11/06/24 @ 14:02 by Anayeli Mondragon PA-C) Smoking Status: Current every day smoker Tobacco Type: Cigarettes Cigarettes Per Day: 1 ppd; Second Hand Exposure: No; Do You Dip or Chew Tobacco: No; Hx Alcohol Use: Yes Alcohol type: wine Hx Substance Use: Yes Prescribed Medications: Marijuana Prescribed Medications Comment: vapes medical marijuana three times a day Substance Use Type Other:: medical marijuana-advised Preferred Language: Greenlandic Communication Ability: Effective Director Of Nurses Registry Required: No Beliefs That Will Affect Care: None marital status: Current Living Situation: Spouse Feels Safe at Home: Yes Assistive Devices: None Review of Systems A total of 10 systems reviewed and were otherwise negative Physical Exam Vital Signs Vital Signs - 24 hr 11/06/24 09:48 11/06/24 11:30 11/06/24 12:57 Temperature 36.6 C Temperature Source Temporal Artery Scan Pulse Rate 85 Pulse Rate [Finger] 81 74 Pulse Rhythm [Finger] Pulse Strength [Finger] Respiratory Rate 18 18 18 Respiratory Effort / Characteristics Non-Labored Spontaneous Non-Labored Spontaneous Non-Labored Spontaneous Respiratory Depth Normal Normal Normal Respiratory Pattern Regular Regular Regular Blood Pressure 129/85 Blood Pressure [Left Arm] 127/83 125/83 Blood Pressure Mean 99 Blood Pressure Mean [Left Arm] 97 97 Pulse Oximetry 98 98 97 Oxygen Delivery Method Room Air Room Air Room Air Sepsis Recent Fever Within 48 Hours No Sepsis New/Unexplained Change in Mental Status No Sepsis Action Taken by Nursing No Action Required 11/06/24 14:40 11/06/24 16:00 11/06/24 16:02 Temperature Temperature Source Pulse Rate Pulse Rate [Finger] 82 87 Pulse Rhythm [Finger] Regular Pulse Strength [Finger] Normal Respiratory Rate 18 20 Respiratory Effort / Characteristics Non-Labored Spontaneous Non-Labored Spontaneous Respiratory Depth Normal Normal Respiratory Pattern Regular Regular Blood Pressure 133/87 Blood Pressure [Left Arm] 149/95 H 133/87 Blood Pressure Mean 105 Blood Pressure Mean [Left Arm] 113 102 Pulse Oximetry 96 93 Oxygen Delivery Method Room Air Room Air Sepsis Recent Fever Within 48 Hours Sepsis New/Unexplained Change in Mental Status Sepsis Action Taken by Nursing 11/06/24 16:06 11/06/24 16:12 11/06/24 16:16 Temperature Temperature Source Pulse Rate 85 85 87 Pulse Rate [Finger] Pulse Rhythm [Finger] Pulse Strength [Finger] Respiratory Rate 16 22 Respiratory Effort / Characteristics Respiratory Depth Respiratory Pattern Blood Pressure Blood Pressure [Left Arm] Blood Pressure Mean Blood Pressure Mean [Left Arm] Pulse Oximetry 90 95 Oxygen Delivery Method Room Air Room Air Sepsis Recent Fever Within 48 Hours Sepsis New/Unexplained Change in Mental Status Sepsis Action Taken by Nursing 11/06/24 16:21 11/06/24 16:36 11/06/24 16:54 Temperature Temperature Source Pulse Rate 86 81 87 Pulse Rate [Finger] Pulse Rhythm [Finger] Pulse Strength [Finger] Respiratory Rate 23 19 23 Respiratory Effort / Characteristics Respiratory Depth Respiratory Pattern Blood Pressure Blood Pressure [Left Arm] Blood Pressure Mean Blood Pressure Mean [Left Arm] Pulse Oximetry 93 97 94 Oxygen Delivery Method Room Air Room Air Room Air Sepsis Recent Fever Within 48 Hours Sepsis New/Unexplained Change in Mental Status Sepsis Action Taken by Nursing 11/06/24 17:00 11/06/24 17:09 11/06/24 17:18 Temperature Temperature Source Pulse Rate 87 87 Pulse Rate [Finger] Pulse Rhythm [Finger] Pulse Strength [Finger] Respiratory Rate 22 18 Respiratory Effort / Characteristics Respiratory Depth Respiratory Pattern Blood Pressure 146/88 H Blood Pressure [Left Arm] Blood Pressure Mean 108 Blood Pressure Mean [Left Arm] Pulse Oximetry 94 95 Oxygen Delivery Method Room Air Room Air Sepsis Recent Fever Within 48 Hours Sepsis New/Unexplained Change in Mental Status Sepsis Action Taken by Nursing CONSTITUTIONAL: Patient is an uncomfortable appearing 59-year-old female who is awake and alert and laying on the gurney. Nontoxic in appearance. EYES: Pupils equal, round, reactive to light and accommodation. EOMs intact without nystagmus. Sclera are anicteric. CARDIOVASCULAR: Regular rate and rhythm. Peripheral pulses easily palpable. RESPIRATORY: Breath sounds equal and clear to auscultation. ABDOMEN: Bowel sounds are present. The abdomen is nondistended, markedly tender to palpation in the right upper quadrant and the right mid abdomen with guarding and rigidity noted. INTEGUMENTARY: No lesions or rash, normal skin turgor. LYMPH: No lymphadenopathy. Course Course The patient was seen and assessed as above. External medical records were reviewed. Patient presents to the emergency department for evaluation of right- sided abdominal pain. Remote history of total hysterectomy for cervical cancer. She does still have her gallbladder and her appendix. IV lock was initiated and laboratory studies were collected. She was treated with fentanyl 75 mcg and Zofran 4 mg IV. CBC with differential, CMP, lipase and urinalysis were collected. CT scan of the abdomen and pelvis with IV contrast was ordered. Diagnostics, as interpreted by me: Laboratory studies: Normal white count at 7900. No left shift. No anemia. No significant electrolyte imbalance requiring correction. Mild, nonspecific elevation of the AST at 56 and alk phos at 231. Lipase is within normal limits and not indicative of acute pancreatitis. Urine microscopy notes a contaminated sample with a large amount of epithelial cells, mucus and yeast. Trace leukocyte esterase and 3+ bacteria are noted. A culture is pending. Imaging studies: CT scan of the abdomen and pelvis with IV contrast is concerning for acute cholecystitis with associated pericholecystic fluid collection and suspected abscess formation in the liver and peritoneum. Gallbladder ultrasound notes mild biliary ductal dilatation. Multiple shadowing gallstones present in the gallbladder. Gallbladder wall thickened measuring 9 mm. Case reviewed with attending physician, Dr. Brennan, ED pharmacist, Alaina Johnson and ED correctional case records supervisor. She was ordered IV Zosyn and vancomycin. She was given an additional dose of fentanyl 100 mcg IV, and IV fluid hydration was initiated. Consultation placed with general surgery. Patient discussed with Le Ayala PA-C with Dr. Chen. Please refer to her surgical consultation for further information. Plan is to obtain gallbladder ultrasound, and admit to the medical service. Patient was discussed with Anayeli Mondragon PA-C, with [facility] for further care and management. Patient remained stable in the emergency department, pending additional workup, including gallbladder ultrasound and MRCP. Differential diagnosis:cute cholecystitis, symptomatic cholelithiasis, ascending cholangitis, biliary colic, pancreatitis, bowel obstruction, perforation, mass, malignancy, abscess, among others. Administered Medications Sodium Chloride (Nss) 1,000 mls @ 80 mls/hr IV .[id number] ISSAC Stop: 11/07/24 18:15 Last Admin: 11/06/24 18:47 Dose: 80 mls/hr Documented By: LAURIE Piperacillin Sod/Tazobactam Sod (Zosyn) 4.5 gm in 100 mls @ 25 mls/hr IV Q8H ISSAC; Protocol Stop: 11/16/24 18:29 Last Admin: 11/06/24 19:34 Dose: 25 mls/hr Documented By: KARUNA Discontinued Medications Fentanyl Citrate (Fentanyl Citrate Pf 100 Mcg/2 Ml Vial) 75 mcg IV NOW STA Stop: 11/06/24 11:25 Last Admin: 11/06/24 11:36 Dose: 75 mcg Documented By: MEI Fentanyl Citrate (Fentanyl Citrate Pf 100 Mcg/2 Ml Vial) 100 mcg IV NOW STA Stop: 11/06/24 13:02 Last Admin: 11/06/24 13:05 Dose: 100 mcg Documented By: MEI Hydromorphone HCl (Hydromorphone Inj 0.5 Mg/0.5 Ml Syr) 0.5 mg IV NOW STA Stop: 11/06/24 15:09 Last Admin: 11/06/24 15:22 Dose: 0.5 mg Documented By: JAMIL Hydromorphone HCl (Hydromorphone Inj 0.5 Mg/0.5 Ml Syr) 0.5 mg IV NOW STA Stop: 11/06/24 18:10 Last Admin: 11/06/24 18:20 Dose: 0.5 mg Documented By: JAMIL Piperacillin Sod/Tazobactam Sod (Zosyn) 4.5 gm in 100 mls @ 200 mls/hr IV NOW ONE; Protocol Stop: 11/06/24 13:05 Last Infusion: 11/06/24 13:35 Dose: Infused Documented By: Admin: 11/06/24 12:58 Dose: 200 mls/hr Documented By: MEI Sodium Chloride (Nss) 1,000 mls @ 999 mls/hr IV .Q1H1M ISSAC Stop: 11/06/24 13:57 Last Infusion: 11/06/24 14:06 Dose: Infused Documented By: Admin: 11/06/24 13:05 Dose: 999 mls/hr Documented By: MEI Vancomycin HCl 1,500 mg/ (Sodium Chloride) 530 mls @ 200 mls/hr IV NOW ONE Stop: 11/06/24 15:35 Last Infusion: 11/06/24 19:15 Dose: Infused Documented By: Infusion: 11/06/24 16:00 Dose: 200 mls/hr Documented By: Infusion: 11/06/24 14:30 Dose: 0 mls/hr Documented By: Admin: 11/06/24 13:41 Dose: 200 mls/hr Documented By: LISA Ioversol (Optiray 320 100ml) 94 ml IV ONCE ONE Stop: 11/06/24 12:08 Last Admin: 11/06/24 12:07 Dose: 94 ml Documented By: NINI Ondansetron HCl (Ondansetron Inj 2 Mg/Ml 2 Ml Vial) 4 mg IV NOW STA Stop: 11/06/24 11:25 Last Admin: 11/06/24 11:36 Dose: 4 mg Documented By: MEI Oxycodone HCl (Oxycodone Hcl Ir 5 Mg Tab (Immediate Release)) 5 mg PO ONE ONE Stop: 11/06/24 19:01 Last Admin: 11/06/24 18:47 Dose: 5 mg Documented By: LAURIE Medical Decision Making Differential Diagnosis See ED course. Medical Records Attestation: I reviewed the patient's medical records. Home Medications Current Medication List: was personally reviewed by me Laboratory Data Attestation: I reviewed the patient's lab results. 11/06/24 11:15 11/06/24 11:15 Lab Results 11/06/24 11/06/24 Range/Units 11:15 11:27 WBC 7.95 (4.8-10.8) K/ul RBC 4.36 (4.20-5.40) M/uL Hgb 13.4 (12.0-16.0) g/dl Hct 39.9 (37.0-47.0) % MCV 91.5 (80.0-100.0) fL MCH 30.7 (25.0-34.0) pg MCHC 33.6 (32.0-36.0) g/dL RDW Std Deviation 41.8 (36.4-46.3) fL RDW Coeff of Ni 12.4 (11.5-14.5) % Plt Count 349 (130-400) K/uL MPV 9.9 (9.4-12.4) fL Immature Gran % (Auto) 0.3 % Neut % (Auto) 79.8 % Lymph % (Auto) 10.2 % Cochran % (Auto) 9.4 % Eos % (Auto) 0.0 % Baso % (Auto) 0.3 % Neut # (Auto) 6.35 (1.40-6.50) K/uL Lymph # (Auto) 0.81 L (1.20-3.40) K/uL Cochran # (Auto) 0.75 H (0.11-0.59) K/uL Eos # (Auto) 0.00 (0.00-0.50) K/uL Baso # (Auto) 0.02 (0.00-0.20) K/uL Immature Gran # (Auto) 0.02 (0.01-0.20) K/uL Sodium 135 L (136-145) mmol/L Potassium 4.1 (3.5-5.1) mmol/L Chloride 100 (98-107) mmol/L Carbon Dioxide 28 (21-32) mmol/L Anion Gap 7 (3-11) BUN 8 (6-23) mg/dl Creatinine 0.73 (0.6-1.2) mg/dl Est Cr Clr Drug Dosing Not Reportable eGFR 95.27 BUN/Creatinine Ratio 11.0 (10-20) Glucose 106 H (70-99(Fasting)) mg/dl Calcium 9.6 (8.6-10.3) mg/dl Total Bilirubin 0.9 (0.2-1.0) mg/dl AST 56 H (13-39) U/L ALT 46 (7-52) U/L Alkaline Phosphatase 231 H (34-104) U/L Total Protein 8.3 (6.0-8.3) gm/dl Albumin 3.9 (3.4-5.0) gm/dl Globulin 4.4 H (2.5-4.0) gm/dl Albumin/Globulin Ratio 0.9 (0.9-2) Lipase 8 L (11-82) U/L Urine Color Dark Yellow Urine Appearance Cloudy A (Clear) Urine pH 5.5 (4.5-7.5) Ur Specific [place] 1.025 (1.000-1.030) Urine Protein 1+ H (Negative) Urine Glucose (UA) Negative (Negative) Urine Ketones 1+ H (Negative) Urine Blood Negative (Negative) Urine Nitrite Negative (Negative) Urine Bilirubin 1+ H (Negative) Urine Urobilinogen Positive H (Negative) Ur Leukocyte Esterase Trace H (Negative) Urine WBC (Auto) 0-5 (0-5) /hpf Urine RBC (Auto) 3-5 H (0-2) /hpf U Hyaline Cast (Auto) 0-2 (0-2) /lpf U Epithel Cells (Auto) 11-20 H (0-2) /hpf Urine Bacteria (Auto) 3+ H (None Seen) Hyaline Casts Present A (None Presnt) /lpf Urine Mucus Present A (None Prsent) Urine Yeast Present A (None Prsent) Imaging Data Attestation: I personally reviewed and interpreted this imaging study as follows: Radiologist's Impression: Abdomen/Pelvis CT 11/06/24 10:57 CT abd pelvis IV con only CLINICAL HISTORY: RIGHT ABD PAIN X 3 DAYS TECHNIQUE: Helical axial images of the abdomen and pelvis were obtained and displayed. Automated dose lowering techniques and/or adjustment according to patient size were utilized for this exam. This exam was performed with intravenous contrast. CT DOSE: 1066.48 mGy.cm COMPARISON: None available at the time of this dictation. FINDINGS: Lower chest: Bibasilar atelectasis versus scarring is seen. Liver: A complex fluid collection in the gallbladder fossa may represent intrahepatic abscess. Gallbladder and biliary tree: Thickening of the gallbladder wall is seen with surrounding fluid and complex surrounding enhancing fluid collections. Intrahepatic bile duct dilation is seen. Pancreas: Unremarkable, no focal lesions. Spleen: Unremarkable. Adrenals: Unremarkable. Kidneys and ureters: Unremarkable. Bladder: Limited evaluation due to underdistention. Reproductive organs: Patient is status post hysterectomy. Bowel: Unremarkable. Lymph nodes Retroperitoneal: Subcentimeter lymph nodes are noted. Pelvic: Unremarkable. Mesenteric: Subcentimeter lymph nodes are noted. Peritoneum: Complex enhancing pericholecystic fluid collection is seen. There is surrounding fat stranding. Vessels: Atherosclerotic calcifications are seen. Abdominal wall: Unremarkable. Bones: Posterior fixation hardware spans L4-L5. IMPRESSION: Findings are compatible with acute cholecystitis with concern for surrounding abscess formation in the liver and peritoneum.. ACT 112: Negative or not required by law. Electronically signed by: Volodymyr Koch M.D. 11/06/2024 12:31 PM Gallbladder Ultrasound 11/06/24 12:57 US gallbladder CLINICAL HISTORY: Right upper quadrant pain. COMPARISON STUDY: CT of the abdomen and pelvis performed earlier today. FINDINGS: No hepatic lesions are identified. Mild biliary ductal dilatation shown on CT performed earlier today is not well visualized by sonography. The pancreas is obscured. There is no right hydronephrosis. Multiple shadowing gallstones within the gallbladder are present. The gallbladder wall is significantly thickened, measuring 9 mm in thickness. The pericholecystic fluid collection shown on CT is not well visualized by sonography. IMPRESSION: 1. Cholelithiasis with gallbladder wall thickening suggestive of acute cholecystitis. The pericholecystic fluid collection shown on CT is not well visualized by sonography but raises the possibility of perforated cholecystitis. 2. Mild biliary ductal dilatation better depicted by CT. ACT 112: Negative or not required by law. Electronically signed by: Manish Reyna M.D. 11/06/2024 2:36 PM Cholangiopancreatography MRI 11/06/24 14:43 MRCP CLINICAL HISTORY: Acute cholecystitis w/abscess, eval biliary dilation TECHNIQUE: Utilizing a 1.5 Nayana magnet and dedicated coil, multiplanar, multiecho imaging of the upper abdomen was performed utilizing heavily T2 weighted pulsing sequences without IV contrast. COMPARISON STUDY: CT of the abdomen and pelvis and right upper quadrant ultrasound performed earlier today. FINDINGS: There is mild intra and extrahepatic biliary ductal dilatation. No common bile duct calculi are identified. Narrowing of the common hepatic duct is noted. No well-defined masses are identified on this exam although this exam is compromised by motion artifact. There are numerous gallstones within the gallbladder. Gallbladder wall thickening is noted. Moderate pericholecystic inflammation is present. In addition, there is a complex 6.5 x 4.4 x 4.5 cm pericholecystic fluid collection which contains a fluid fluid level. Fluid within the dependent aspect of this collection demonstrates restricted diffusion. There is mild dilatation of the pancreatic duct, measuring 4 mm in caliber. No hepatic lesions are identified on unenhanced exam. The spleen, adrenal glands, kidneys are unremarkable on unenhanced exam. There is no hydronephrosis. L4-S1 decompression and fusion is present. IMPRESSION: 1. Cholelithiasis with gallbladder wall thickening and pericholecystic infiltration consistent with acute cholecystitis. Complex pericholecystic fluid collection which measures 6.5 x 4.4 x 4.5 cm suspicious for an abscess. The findings may represent perforated cholecystitis. 2. Mild intra and extrahepatic biliary ductal dilatation. No common bile duct calculi identified. Narrowing of the common hepatic duct, likely related to inflammation or the pericholecystic fluid collection. An underlying neoplastic etiology is considered much less likely however imaging follow up to ensure resolution of the biliary ductal dilatation is recommended. 3. Mild dilatation of the pancreatic duct. ACT 112: Negative or not required by law. Electronically signed by: Manish Reyna M.D. 11/06/2024 4:12 PM MDM Narrative See ED course. Impression & Plan Acute cholecystitis, Intra-abdominal abscess Discharge Plan Visit Data Chief Complaint: Abdominal Pain Stated Complaint: RT ABD PAIN ED Provider: Ross Brennan ED Midlevel Provider: Mishel Dudley Discharge Problem: Acute cholecystitis, Intra-abdominal abscess Patient Disposition: Being Evaluated by Hospitalist
[2024-11-06] MEDS: fentaNYL citrate PF 100 MCG/2 ML VIAL IV STA ×2 (11:36→13:05)
[2024-11-06] MEDS: ONDANSETRON INJ 2 MG/ML 2 ML VIAL IV STA (11:36)
[2024-11-06 11:44] LABS: Basophils # (auto) 0.02 K/uL (0.00-0.20); Basophils % (auto) 0.3 %; Hematocrit (blood only) 39.9 % (37.0-47.0); Hemoglobin 13.4 g/dl (12.0-16.0); Immature Granulocytes # (auto) 0.02 K/uL (0.01-0.20); Immature Granulocytes % (auto) 0.3 %; Lymphocytes # (auto) 0.81 K/uL (1.20-3.40); Lymphocytes % (auto) 10.2 %; Mean Corpuscular Hemoglobin 30.7 pg (25.0-34.0); Mean Corpuscular Hgb Conc 33.6 g/dL (32.0-36.0); Mean Corpuscular Volume 91.5 fL (80.0-100.0); Mean Platelet Volume 9.9 fL (9.4-12.4); Monocytes # (auto) 0.75 K/uL (0.11-0.59); Monocytes % (auto) 9.4 %; Neutrophils # (auto) 6.35 K/uL (1.40-6.50); Neutrophils % (auto) 79.8 %; Platelet Count 349 K/uL (130-400); RDW Coefficient of Variation 12.4 % (11.5-14.5); RDW Standard Deviation 41.8 fL (36.4-46.3); Red Blood Count 4.36 M/uL (4.20-5.40); White Blood Count 7.95 K/ul (4.8-10.8)
--- OUTSIDE RECORDS SUMMARY | 2024-11-06 11:45 | External Medical Summary | Summary of Care ---
Author Name Unknown Organization [facility] Address [address] [place] [address] Phone [phone] Care Team Providers Care End Lathe Operator Name Role Phone Theresa Saucedo Primary Care Provider +1- [phone] Reason for Visit * Reason Onset Date Comments Medication Refill 08/02/2024 Encounter Details Date Type Department Care Team (Late st Contact Info) Description 08/02[facility] [place] [address] Theresa Saucedo CRNP [address] [facility] [place] [address] Fibromyalgia; Subclinical hypothyroidism; Grief reaction; Insomnia, unspecified type Allergies Active Allergy Reactions Criticality Noted Date Comments Morphine Hives 02/06/2016 hives documented as of this encounter (statuses as of 08/03/2024) Medications No known medicationsdocumented as of this encounter (statuses as of 08/03/2024) Active Problems Problem Noted Date Diagnosed Date Insomnia 08/03/2024 Last Assessment & Plan: Stable, refill trazodone NAUN (generalized anxiety disorder) 08/03/2024 Last Assessment & Plan: Anxiety is uncontrolled. Cymbalta is good for her fibromyalgia so we will keep this medication. I am reluctant to increase buspirone as this is to similar to Cymbalta. We reviewed options and decided to stop buspirone and replace this with Wellbutrin. This combination should be more effective and safer. Re-evaluate in 6 weeks. We also discussed Maliha Rueda and her book [place] of the mind. Subclinical hypothyroidism 07/04/2020 Last Assessment & Plan: Last TSH in January was normal. Refilled Synthroid. DDD (degenerative disc disease), lumbar 05/23/20 MEDICATION USE AGREEMENT 08/04/2018 Overview: Working on weaning off tramadol. (referred to Pain MTM) History of cervical cancer 07/20/2018 Fibromyalgia 09/29/2017 Last Assessment & Plan: Fibromyalgia pain is increased. She reports that she ran out of her 30 mg of Cymbalta and had only been taking 60 mg so that could be a part of the increased pain along with her stress. We will refill her normal Cymbalta and make changes to anxiety medication as mentioned elsewhere. Refilled Lyrica as well. Chronic seasonal allergic rhinitis 09/29/2017 Generalized osteoarthritis of multiple sites documented as of this encounter (statuses as of 08/03/2024) Immunizations Name Administration Dates Next Due Seasonal [...] money to get more. Never true 09/24/2023 Childcare Answer Date Recorded Do you feel overwhelmed with taking care of a child, family member or friend? No 09/24/2023 Does your family need help f inding childcare? (Household - for ages 0-17 years) Not on file 09/24/2023 Clothing Answer Date Recorded Have you been unable to get clothing when it was really needed? No 09/24/2023 Is your family able to get c lothes or diapers when needed? (Household - for ages 0-17 years) Not on file 09/24/2023 Personal Safety Answer Date Recorded Do you feel unsafe or have concerns for your saf ety? No 09/24/2023 Do you have concerns for you r family's safety? (Household - for ages 0-17 years) Not on file 09/24/2023 Utilities Answer Date Recorded Do you have trouble paying y our heating, water, or electric bill? No 09/24/2023 Is your family able to pay t he heat, water, or electric bill? (Household - for ages 0-17 years) Not on file 09/24/2023 Does your family have access to good internet? (Household - for ages 0-17 years) Not on file 09/24/2023 Employment Status Answer Date Recorded Are you unemployed or without regular income? No 09/24/2023 Does the household have a re lar source of income? (Household - for ages 0-17 years) Not on file 09/24/2023 Social Connections Answer Date Recorded How often do you feel lonely or isolated from th ose around you? Never 09/24/2023 Financial Resource Strain Answer Date R ecorded Do you have any trouble payi ng for your medications, or do you think you might in the future? No 09/24/2023 Does your family have troubl e paying for medicine? (Household - for ages 0-17 years) Not on file 09/24/2023 Transportation Needs Answer Date Record ed READ ONLY Do you have troubl e getting a ride to medical visits or work? Never True 09/24/2023 Does your family have a hard time getting a ride to doctors visits? (Household - for ages 0-17 years) Not on file 09/24/2023 Has lack of transportation k ept you from medical appointments, meetings, work, or from getting things needed for daily living? Check all that apply. (Adult - for ages 18 years and over) Not on file 09/24/2023 Do you (or your family) have trouble finding or paying for a ride (transportation)? (Household - for ages 0-17 years) Not on file 09/24/2023 Housing Stability Answer Date Recorded Do you currently live in a s helter or have no steady place to sleep at night? No 09/24/2023 READ ONLY Do you think you a re at risk of becoming homeless? No 09/24/2023 Does your family worry about paying for your home or becoming homeless? (Household - for ages 0-17 years) Not on file 1 11/24/2022 Are you homeless or worried that you might be in the future? (Adult - for ages 18 years and over) Not on file Are you (or your family) cliff eless or worried that you might be in the future? (Household - for ages 0-17 years) Not on file Food Insecurity Answer Date Recorded Do you need food for this week? No 09/24/2023 Are you able to get enough f ood for your family? (Household - for ages 0-17 years) Not on file 09/24/2023 Does your family need food t his week? (Household - for ages 0-17 years) Not on file 09/24/2023 Do you always have enough fo od for your family? (Household - for ages 0-17 years) Not on file 09/24/2023 Sex and Gender Information Value Date Recorded Sex Assigned at Female 09/25/2019 2:40 PM EST Gender Identity Female 09/25/2019 2:40 PM EST Sexual Orientation Straight 09/25/2019 2: 40 PM EST Job Start Date Occupation Industry Not on file Not on file Not on file documented as of this encounter Miscellaneous Notes * Telephone Encounter - Regi Stafford CPhT - 08/03/2024 11:12 AM EDT Pharmacy is calling because pt's prescription for Trazodone 100mg was sent with unclear directions stating "Take 1.5 Tablets by mouth at bedtime. TAKE ONE TABLET BY MOUTH AT BEDTIME ". Please clarifythe directions for this medication and send a new prescription to [facility] . Thank you, Regi Stafford Towel Inspector II [facility] ([facility] 08/03/2024 11:13 AM * Telephone Encounter - Gris Coronado MD - 08/03/2024 9:07 AM EDT Refused Prescriptions: Disp Refills busPIRone HCl 10 MG Oral Tablet (Buspar) 180 Ta*2 Sig: Take 1 Tablet by mouth in the morning and 1 Tablet before bedtime.Refused By: GRIS CORONADOeason for Refusal: Other (comment below) * Telephone Encounter - Gris Coronado MD - 08/03/2024 9:07 AM EDT Patient is scheduled for a visit today * Telephone Encounter - Socorro Joseph LPN - 08/02/2024 11:35 AM EDTPending Prescriptions: Disp Refills DULoxetine HCl 30 MG Oral Capsule Delayed *90 Cap*3 Sig: Take 1 Capsule by mouth in the morning. DULoxetine HCl 60 MG Oral Capsule Delayed *90 Cap*3 Sig: Take 1 Capsule by mouth in the morning. Levothyroxine Sodium 25 MCG Oral Tablet (L*90 Tab*2 Sig: TAKE ONE TABLET BY MOUTH IN THE MORNING at least 30 mins prior to breakfast or other meds busPIRone HCl 10 MG Oral Tablet (Buspar) 180 Ta*2 Sig: Take 1 Tablet by mouth in the morning and 1 Tablet before bedtime. traZODone HCl 100 MG Oral Tablet (Desyrel) 135 Ta*2 Sig: Take 1.5 Tablets by mouth at bedtime. TAKE ONE TABLET BY MOUTH AT BEDTIME * Telephone Encounter - Kev Quintero, agricultural services director - 08/02/2024 9:51 AM EDT Pt pharmacy stating pt out of refills. Did you pend patient's preferred pharmacy and medication before forwarding?yes Pharmacy: [facility] [address] [place] [address] [address] [facility] [place] Pending Prescriptions: Disp Refills DULoxetine HCl 30 MG Oral Capsule Delayed*90 Cap*3 Sig: Take 1 Capsule by mouth in the morning. DULoxetine HCl 60 MG Oral Capsule Delayed*90 Cap*3 Sig: Take 1 Capsule by mouth in the morning. Levothyroxine Sodium 25 MCG Oral Tablet (*90 Tab*2 Sig: TAKE ONE TABLET BY MOUTH IN THE MORNING at least 30 mins prior to breakfast or other meds busPIRone HCl 10 MG Oral Tablet (Buspar) 180 Ta*2 Sig: Take 1 Tablet by mouth in the morning and 1 Tablet before bedtime. traZODone HCl 100 MG Oral Tablet (Desyrel)135 Ta*2 Sig: Take 1.5 Tablets by mouth at bedtime. TAKE ONE TABLET BY MOUTH AT BEDTIME Last Visit: 01/26/2024 (in office), 04/09/2020 (telemedicine) Next Visit: 08/03/2024 If no future appointments scheduled, and last appointment is greater than a year ago, please schedule patient for a follow-up appointment Last date the medication was ordered: 10/04/2023 10/04/2023 10/04/2023 10/04/2023 10/04/2023 Is this request for a controlled substance?No Urine Drug Screen:No results found for this or any previous visit. Patient Phone Numbers Labs: Lab Results Component Value Date/Time CREAT 0.8 06/23/2024 12:43 AM CREAT 0.8 04/11/2020 08:36 AM POTASSIUM 3.3 (L) 06/23/2024 12:43 AM POTASSIUM 4.6 04/11/2020 08:36 AM TSH 2.26 01/26/2024 09:22 AM TSH 3.98 04/11/2020 08:36 AM LDL 134 (H) 04/11/2020 08:36 AM LDL NOT APPLICABLE 04/11/2020 08:36 AM ALT 10 06/23/2024 12:43 AM ALT 15 04/11/2020 08:36 AM HGBA1C 5.4 01/20/2019 08:36 AM documented in this encounter Plan of Treatment Upcoming Encounters Date Type Department Care Team (Late st Contact Info) Description 09/14/2024 8:00 AM EST Office Visit [facility] [address] [facility] [place] [id number] Niall Slaughter MD [address] [facility] [place] [address] Scheduled Procedures Name Priority Associated Diagnoses Date/Ti me COLONOSCOPY FLEXIBLE PROXIMAL DIAGNOSTIC Recall Colon cancer screening Health Maintenance Due Date Last Done Comments Pneumococcal Vaccine: Pediatrics (0 to 5 Years) and At-Risk Patients (6 to 64 Years) (1 of 2 - PCV) 1972 HIV Screening 1981 Hepatitis C Screening 1984 Hepatitis B Vaccine (1 of 3 - 19+ 3-dose series) 1985 Cologuard 2011 Fecal Occult Blood Test 2011 Sigmoidoscopy 2011 Zoster Vaccines (1 of 2) 2016 Mammogram 01/01/2022 01/01/2021, 05/08, 03/02/2017, Additional history exists COVID-19 Vaccine ( - season) 2024 Influenza Vaccine (FLU shot) (#1) 2024 09/25/2019, 07/20/2018, 07/28/2017 Depression Monitoring 01/25/2025 01/26/2024 TSH 01/25/2025 01/26/2024, 10/09, 04/11/2020, Additional history exists Lipid Panel 04/11/2025 04/11/2020, 01/20/2019 Pap Smear 01/04/2027 01/04/2024, 05/08, 05/18/2019 Diabetes Screening 06/23/2027 06/23/2024, 0 01/26/2024, 01/08/2023, Additional history exists Colonoscopy 09/02/2028 09/02/2018, 09/02/2018 Colorectal Cancer Screening 09/02/2028 Cervical Cancer Screening 01/04/2029 HPV/Co-Test 01/04/2029 01/04/2024 DTap/Tdap Vaccines (2 - Td or Tdap) 09/25/2029 09/25/2019 HPV (Gardasil) Vaccine Aged Out No lo nger eligible based on patient's age to complete this topic MENINGOCOCCAL (MENACTRA/MENVEO) Aged Out No longer eligible based on patient's age to complete this topic documented as of this encounter Medical Devices Not on filedocumented as of this encounter Visit Diagnoses Diagnosis Fibromyalgia Mylagia and myositis, unspecified Subclinical hypothyroidism Other specified acquired hypothyroidism Grief reaction Adjustment disorder with depressed mood Insomnia, unspecified type documented in this encounter Care Teams End Lathe Operator Relationship Specialty Start Date End Date Theresa Saucedo CRNP [address] [place] [address] PCP - General Nurse Practitioner 11/04/22 documented as of this encounter
--- OUTSIDE RECORDS SUMMARY | 2024-11-06 11:45 | External Medical Summary | Summary of Care ---
Author Name Unknown Organization [facility] Address [address] [place] [address] Phone [phone] Care Team Providers Care Laboratory Animal Caretaker Name Role Phone Unavailable Primary Care Provider Unavailabl e Reason for Visit * Reason Onset Date Comments Imaging Records Request 10/16/2024 Encounter Details Date Type Department Care Team (Late st Contact Info) Description 10/16/2024 Telephone Radiology Film File [address] [place] [address] Support, Imaging Radiology [address] [place] [address] Imaging Records Request Allergies Active Allergy Reactions Criticality Noted Date Comments Morphine Hives 02/06/2016 hives documented as of this encounter (statuses as of 10/16/2024) Medications DULoxetine HCl 30 MG Oral Capsule Delayed Release Particles (Cymbalta) Take 1 Capsule by mouth in the morning. 90 Capsule 3 4 Active DULoxetine HCl 60 MG Oral Capsule Delayed Release Particles (Cymbalta)Indicati ons:Fibromyalgia Take 1 Capsule by mouth in the morning. 90 Capsule 3 4 Active Levothyroxine Sodium 25 MCG Oral Tablet (Levoxyl)Indicatio ns:Subclinical hypothyroidism TAKE ONE TABLET BY MOUTH IN THE MORNING at least 30 mins prior to breakfast or other meds 90 Tablet 3 4 Active Pregabalin 150 MG Oral Capsule (Lyrica)Indication s:Fibromyalgia Take 1 Capsule by mouth in the morning and 1 Capsule before bedtime. 60 Capsule 5 4 Active buPROPion HCl ER (XL) 150 MG Oral Tablet Extended Release 24 Hour (Wellbutrin XL) Take 1 Tablet by mouth in the morning. 90 Tablet 3 4 Active traZODone HCl 100 MG Oral Tablet (Desyrel)Indicatio ns:Insomnia, unspecified type Take 1.5 Tablets by mouth at bedtime. 135 Tablet 3 4 Active Acetaminophen 500 MG Oral Tablet (Tylenol) 2 Tablets every 4 hours as needed. 4 Active Ventolin HFA 108 (90 Base) MCG/ACT Inhalation Aerosol SolutionIndication s:Wheezing Inhale 2 Puffs by mouth every 4 hours as needed for Shortness of Breath or Wheezing. 18 g 1 4 Active Fluticasone Propionate 50 MCG/ACT Nasal Suspension (Flonase)Indicatio ns:Acute rhinosinusitis Administer 2 Sprays into each nostril in the morning. 18.2 mL 1 4 Active Lidocaine 5 % External Patch (Lidoderm) Place 1 Patch over 12 hours topically on the skin daily. 30 Patch 4 Active Cyclobenzaprine HCl 5 MG Oral Tablet (Flexeril) Take 1-2 tablets up to 3 times a day as needed for muscle spasms. 30 Tablet 4 Active documented as of this encounter (statuses as of 10/16/2024) Active Problems Problem Noted Date Diagnosed Date Insomnia 08/03/2024 Assessment & Plan (08/03/2024 8:47 AM EDT): Stable, refill trazodone NAUN (generalized anxiety disorder) 08/03/2024 Assessment & Plan (08/03/2024 8:48 AM EDT): Anxiety is uncontrolled. Cymbalta is good for her fibromyalgia so we will keep this medication. I am reluctant to increase buspirone as this is to similar to Cymbalta. We reviewed options and decided to stop buspirone and replace this with Wellbutrin. This combination should be more effective and safer. Re-evaluate in 6 weeks. We also discussed Maliha Rueda and her book [place] of the mind. Subclinical hypothyroidism 07/04/2020 Assessment & Plan (08/03/2024 8:47 AM EDT): Last TSH in January was normal. Refilled Synthroid. DDD (degenerative disc disease), lumbar 05/23/20 19 MEDICATION USE AGREEMENT 08/04/2018 Overview (08/04/2018): Working on weaning off tramadol. (referred to Pain MTM) History of cervical cancer 07/20/2018 Fibromyalgia 09/29/2017 Assessment & Plan (08/03/2024 8:47 AM EDT): Fibromyalgia pain is increased. She reports that [...] as of this encounter (statuses as of 10/16/2024) Immunizations Name Administration Dates Next Due Seasonal [...] ages 0-17 years) Not on file 09/24/2023 Comments No Sex and Gender Information Value Date Recorded Sex Assigned at Female 09/25/2019 2:40 PM EST Legal Sex Female 4:28 PM EDT Gender Identity Female 09/25/2019 2:40 PM EST Sexual Orientation Straight 09/25/2019 2: 40 PM EST documented as of this encounter Miscellaneous Notes * Telephone Encounter - [place] Small, System Support - 10/16/2024 12:44 PM EST [facility] requesting xr lsp 10/15/24 images be pushed to their system. [place] Authorization to Release on file. Images pushed to [facility] external connection through PACs Associated report(s) not needed. documented in this encounter Plan of Treatment Scheduled Procedures Name Priority Associated Diagnoses Date/Ti [...] Additional history exists COVID-19 Vaccine ( - 2023- season) 2024 Influenza Vaccine (FLU shot) (#1) [...]
--- OUTSIDE RECORDS SUMMARY | 2024-11-06 11:45 | External Medical Summary | Summary of Care ---
Author Name Unknown Organization [facility] Address [address] [facility] [place] [address] Phone [phone] Care Team Providers Care Sheet Metal Mechanic Name Role Phone Unavailable Primary Care Provider Unavailabl e Reason for Referral * Precert (Within 10 days (routine)) - Pending Review Specialty Diagnoses / Procedures Referred By Zaynab t Referred To Contact Radiology Diagnoses Bilateral leg weakness Procedures MRI L SPINE WO CONTRAST Access [place], [place] [address] *DO NOT REMOVE THIS DEPARTMENT* [place] [address] Phone: tel: Referral ID Status Reason Start Date Expiration Date V isits Requested Visits Authorized [id number] Pending Review 10/28/[phone] Encounter Details Date Type Department Care Team (Late st Contact Info) Description 10/28/2024 Orders Only Access [place] [address] *DO NOT REMOVE THIS DEPARTMENT* [place] [id number] Requisition, External Radiology [address] [place] [address] Bilateral leg weakness* Allergies Active Allergy Reactions Criticality Noted Date Comments Morphine Hives 02/06/2016 hives documented as of this encounter (statuses as of 10/28/2024) Medications DULoxetine HCl 30 MG Oral Capsule [...] as of this encounter (statuses as of 10/28/2024) Active Problems Problem Noted Date Diagnosed Date [...] also discussed Maliha Rueda and her book [place] of the mind. Subclinical hypothyroidism 07/04/2020 Assessment & Plan (08/03/2024 8:47 AM EDT): Last TSH in January was normal. Refilled Synthroid. DDD (degenerative disc disease), lumbar 05/23/20 MEDICATION USE AGREEMENT 08/04/2018 Overview (08/04/2018): Working [...] as of this encounter (statuses as of 10/28/2024) Immunizations Name Administration Dates Next Due Seasonal [...] 09/24/2023 Does the household have a re gular source of income? (Household - for ages [...] PM EST documented as of this encounter Plan of Treatment Upcoming Encounters Date Type Department Care Team (Late st Contact Info) Description 11/07/2024 2:00 PM EST Appointment Radiology, [facility] [address] [place] [address] Scheduled Orders Name Type Priority Associated Diagnoses Orde r Schedule MRI L SPINE WO CONTRAST Medical Imaging Routine Bilateral leg weakness Expected: 10/28/2024, Expires: 04/15/2025 Scheduled Procedures Name Priority Associated Diagnoses Date/Ti me COLONOSCOPY FLEXIBLE PROXIMAL DIAGNOSTIC Recall Colon cancer screening Health Maintenance Due Date Last Done Comments HIV Screening 1981 Hepatitis C Screening 1984 Hepatitis B Vaccine (1 of 3 - 19+ 3-dose series) 1985 Pneumococcal Vaccine: Pediatrics (0 to 5 Years) and At-Risk Patients (6 to 64 Years) (1 of 2 - PCV) 1985 Cologuard 2011 Fecal Occult Blood Test 2011 Sigmoidoscopy 2011 Zoster Vaccines (1 of 2) 2016 Mammogram 01/01/2022 01/01/2021, 05/08, 03/02/2017, Additional history exists COVID-19 Vaccine ( season) 2024 Influenza Vaccine (FLU shot) (#1) [...] as of this encounter Visit Diagnoses Diagnosis NAUN (generalized anxiety disorder)- Primary Generalized anxiety disorder Fibromyalgia Mylagia and myositis, unspecified Subclinical hypothyroidism Other specified acquired hypothyroidism Insomnia, unspecified type Bilateral leg weakness- Primary Other musculoskeletal symptoms referable to limbs documented in this encounter
--- OUTSIDE RECORDS SUMMARY | 2024-11-06 11:45 | External Medical Summary | Summary of Care ---
Author Name Unknown Organization [facility] Address [address] [place] [address] Phone [phone] Care Team Providers Care Cut Off Saw Operator Metal Name Role Phone Theresa Saucedo Primary Care Provider +1- [phone] Reason for Visit * Reason Onset Date Comments Medication Refill 08/02/2024 Encounter Details Date Type Department Care Team (Late st Contact Info) Description 08/02/2024 Refill [facility] [place] [address] [facility] [place] [phone] Theresa Saucedo CRNP [address] [place] [address] Fibromyalgia; Subclinical hypothyroidism; Grief reaction; Insomnia, unspecified type Allergies Active Allergy Reactions Criticality Noted Date Comments Morphine Hives 02/06/2016 hives documented as of this encounter (statuses as of 08/03/2024) Medications Medication Sig Dispensed Refills Start Date End Date Status traZODone HCl 100 MG Oral Tablet (Desyrel)Indications: Insomnia, unspecified type Take 1.5 Tablets by mouth at bedtime. 135 Tablet 3 08/03/2024 Active documented as of this encounter (statuses [...] also discussed Maliha Rueda and her book [place] of the mind. Subclinical hypothyroidism 07/04/2020 Last [...] as of this encounter Miscellaneous Notes * Addendum Note - Niall Slaughter MD - 08/03/2024 12:36 PM EDTAddended by: NIALL SLAUGHTER on: 08/03/2024 12:36 PM Modules accepted: Orders * Telephone Encounter - Regi Stafford CPhT - 08/03/2024 11:12 AM EDT Pharmacy is calling because pt's prescription for Trazodone 100mg was sent with unclear directions stating "Take 1.5 Tablets by mouth at bedtime. TAKE ONE TABLET BY MOUTH AT BEDTIME ". Please clarifythe directions for this medication and send a new prescription to [facility] . Thank you, Regi Stafford Enrollment Management Manager II [facility] ([facility]) (formerly [facility]) 08/03/2024 11:13 AM * Telephone Encounter - Gris Coronado MD - 08/03/2024 9:07 AM EDT Refused Prescriptions: Disp Refills busPIRone HCl 10 MG Oral Tablet (Buspar) 180 Ta*2 Sig: Take 1 Tablet by mouth in the morning and 1 Tablet before bedtime.Refused By: GRIS CORONADOeashamlet for Refusal: Other (comment below) * Telephone [...] BEDTIME * Telephone Encounter - Kev Quintero, airport planner - 08/02/2024 9:51 AM EDT Pt pharmacy stating pt out of refills. Did you pend patient's preferred pharmacy and medication before forwarding?yes Pharmacy: [facility] [address] [place] [address] [address] [place] Pending Prescriptions: Disp Refills DULoxetine HCl [...] Description 09/14/2024 8:00 AM EST Office Visit [facility] [address] [place] [address] Niall Slaughter MD [address] [place] [id number] Scheduled Procedures Name Priority Associated Diagnoses Date/Ti [...] type documented in this encounter Care Teams Cut Off Saw Operator Metal Relationship Specialty Start Date End Date [facility] [place] [address] PCP - General Nurse Practitioner 11/04/22 documented as of this encounter
--- OUTSIDE RECORDS SUMMARY | 2024-11-06 11:45 | External Medical Summary | Summary of Care ---
Author Name Unknown Organization [facility] Address [address] [place] [address] Phone [phone] Care Team Providers Care Textile Converter Name Role Phone Theresa Saucedo Primary Care Provider [phone]- [phone] Reason for Visit * Reason Onset Date Comments Medication Refill 08/02/2024 Encounter Details Date Type Department Care Team (Late st Contact Info) Description [facility] [facility] [place] [id number] Theresa Saucedo CRNP [address] [place] [address] Fibromyalgia; Subclinical hypothyroidism; Grief reaction; [...] also discussed Maliha Rueda and her book [place] of the mind. Subclinical hypothyroidism 07/04/2020 Last [...] medication and send a new prescription to [facility] . Thank you, Regi Stafford Hearing Impaired Itinerant Teacher II [facility] ([facility]) (formerly [facility]) 08/03/2024 11:13 AM * Telephone Encounter - [...] BEDTIME * Telephone Encounter - Kev Quintero, maintenance technician 2nd shift - 08/02/2024 9:51 AM EDT Pt pharmacy stating pt out of refills. Did you pend patient's preferred pharmacy and medication before forwarding?yes Pharmacy: [facility] [address] [place] [address] [address] [facility] Pending Prescriptions: Disp Refills DULoxetine HCl [...] Description 09/14/2024 8:00 AM EST Office Visit [facility] [address] [place] [id number] Niall Slaughter MD [address] [place] [address] Scheduled Procedures Name Priority Associated Diagnoses Date/Ti [...] type documented in this encounter Care Teams Textile Converter Relationship Specialty Start Date End Date Theresa Saucedo CRNP [address] [place] [address] PCP - General Nurse Practitioner 11/04/22 documented as of this encounter
--- OUTSIDE RECORDS SUMMARY | 2024-11-06 11:45 | External Medical Summary | Summary of Care ---
Author Name Unknown Organization [facility] Address [address] [place] [address] Phone [phone] Care Team Providers Care Traffic Court Magistrate Name Role Phone Unavailable Primary Care Provider Unavailabl e Reason for Visit * Reason Comments Sinus Problem Post nasal drainage, bilateral ear itching x 5 days Encounter Details Date Type Department Care Team (Late st Contact Info) Description 09/07/2024 9:40 AM EDT Office Visit [facility] [address] [place] [address] Lorrie Coronado MD [address] [facility] [place] [id number] Acute rhinosinusitis*; Wheezing; Tobacco use; Upper respiratory tract infection, unspecified type Allergies Active Allergy Reactions Criticality Noted Date Comments Morphine Hives 02/06/2016 hives documented as of this encounter (statuses as of 09/07/2024) Medications Medication Sig Dispensed Refills Start Date End Date Status DULoxetine HCl 30 MG Oral Capsule Delayed Release Particles (Cymbalta) Take 1 Capsule by mouth in the morning. 90 Capsule 3 08/03/2024 Active DULoxetine HCl 60 MG Oral Capsule Delayed Release Particles (Cymbalta)Indicatio ns:Fibromyalgia Take 1 Capsule by mouth in the morning. 90 Capsule 3 08/03/2024 Active Levothyroxine Sodium 25 MCG Oral Tablet (Levoxyl)Indication s:Subclinical hypothyroidism TAKE ONE TABLET BY MOUTH IN THE MORNING at least 30 mins prior to breakfast or other meds 90 Tablet 3 08/03/2024 Active Pregabalin 150 MG Oral Capsule (Lyrica)Indications :Fibromyalgia Take 1 Capsule by mouth in the morning and 1 Capsule before bedtime. 60 Capsule 5 08/03/2024 Active buPROPion HCl ER (XL) 150 MG Oral Tablet Extended Release 24 Hour (Wellbutrin XL) Take 1 Tablet by mouth in the morning. 90 Tablet 3 08/03/2024 Active traZODone HCl 100 MG Oral Tablet (Desyrel)Indication s:Insomnia, unspecified type Take 1.5 Tablets by mouth at bedtime. 135 Tablet 3 08/03/2024 Active Acetaminophen 500 MG Oral Tablet (Tylenol) 2 Tablets every 4 hours as needed. 01/11/2024 Active Ventolin HFA 108 (90 Base) MCG/ACT Inhalation Aerosol SolutionIndications :Wheezing Inhale 2 Puffs by mouth every 4 hours as needed for Shortness of Breath or Wheezing. 18 g 1 09/07/2024 Active Amoxicillin 875 MG Oral TabletIndications:A cute rhinosinusitis Take 1 Tablet by mouth in the morning and 1 Tablet before bedtime. Do all this for 10 days. 20 Tablet 09/07/2024 4 Active Fluticasone Propionate 50 MCG/ACT Nasal Suspension (Flonase)Indication s:Acute rhinosinusitis Administer 2 Sprays into each nostril in the morning. 18.2 mL 1 09/07/2024 Active Ventolin HFA 108 (90 Base) MCG/ACT Inhalation Aerosol Solution Inhale 2 Puffs by mouth every 4 hours as needed for Shortness of Breath or Wheezing. 4 Discontinue d(Refill) documented as of this encounter (statuses as of 09/07/2024) Active Problems Problem Noted Date Diagnosed Date [...] also discussed Maliha Rueda and her book [place] of the mind. Subclinical hypothyroidism 07/04/2020 Last [...] as of this encounter (statuses as of 09/07/2024) Immunizations Name Administration Dates Next Due Seasonal Influenza, PF, 6 M & above, IM , (FluLaval or Fluzone) 09/25/2019,07/20/2018,07/28/2017 TDAP (age 10 and older)(Boostrix) 09/25/2019 documented as of this encounter Social History Tobacco Use Types Packs/Day Years Used Date Smoking Tobacco: Every Day Cigarettes Smokeless Tobacco: Never Tobacco Cessation:Ready to Q uit: Not Asked; Counseling Given: Not Answered Alcohol Use Standard Drinks/Week Comments Yes 0 [...] on file documented as of this encounter Last Filed Vital Signs Vital Sign Reading Time Taken Comments Blood Pressure 101/65 09/07/2024 9:40 AM EDT Pulse 68 09/07/2024 9:40 AM EDT Temperature 36.8 C (98.2 F) 09/07/2024 9:40 AM ED T Respiratory Rate 14 09/07/2024 9:40 AM EDT Oxygen Saturation - - Inhaled Oxygen Concentration - - Weight 70.2 kg (154 lb 11.2 oz) 09/07/2024 9:40 AM EDT Height 157.5 cm (5' 2") 09/07/2024 9:40 AM EDT Body Mass Index 28.3 09/07/2024 9:40 AM EDT documented in this encounter Progress Notes * Lorrie Coronado MD - 09/07/2024 9:43 AM EDT Images from the original note were not included. History of Present Illness Joyce Purcell is a 59 year old female that presents for Sinus Problem (Post nasal drainage, bilateral ear itching x 5 days) Acute visit. Patient reports postnasal drainage, headache, sinus pressure, itchy ears. Mild sore throat, mild cough. No fever/chills. +/- SOB due to head congestion. No GI symptoms. Onset of symptoms 5 days ago, unchanged OTC medications did not help (Nyquil) Sick contact: no known Hx seasonal allergies Tobacco use 1 pack per day (has Albuterol HFA as needed, almost out of medication) Physical Exam Vitals: 09/07/24 0940 Temp: 36.8 C (98.2 F) Pulse: 68 Resp: 14 BP: 101/65 BMI: 28.29 BP Readings from Last 3 Encounters: 09/07/24 101/65 08/03/24 134/91 06/23/24 (!) 138/118 Wt Readings from Last 3 Encounters: 09/07/24 70.2 kg (154 lb 11.2 oz) 08/03/24 70.6 kg (155 lb 11.2 oz) 06/23/24 74.8 kg (165 lb) BMI Readings from Last 3 Encounters: 09/07/24 28.30 kg/m 08/03/24 28.48 kg/m 06/23/24 30.18 kg/m Physical Exam Constitutional: General: She is not in acute distress. Appearance: Normal appearance. HENT: Head: Normocephalic and atraumatic. Right Ear: Tympanic membrane, ear canal and external ear normal. Left Ear: Tympanic membrane, ear canal and external ear normal. Nose: Congestion present. Right Sinus: Maxillary sinus tenderness present. No frontal sinus tenderness. Left Sinus: Maxillary sinus tenderness present. No frontal sinus tenderness. Mouth/Throat: Mouth: Mucous membranes are moist. Pharynx: Posterior oropharyngeal erythema present. Eyes: Conjunctiva/sclera: Conjunctivae normal. Pupils: Pupils are equal, round, and reactive to light. Cardiovascular: Rate and Rhythm: Normal rate and regular rhythm. Pulmonary: Effort: Pulmonary effort is normal. Breath sounds: Normal breath sounds. Abdominal: General: Bowel sounds are normal. There is no distension. Palpations: Abdomen is soft. Tenderness: There is no abdominal tenderness. Musculoskeletal: Cervical back: Neck supple. Right lower leg: No edema. Left lower leg: No edema. Skin: General: Skin is warm and dry. Findings: No rash. Neurological: Mental Status: She is alert and oriented to person, place, and time. Psychiatric: Mood and Affect: Mood normal. Behavior: Behavior normal. I have reviewed the following results: None Assessment and Plan 1. Wheezing - Ventolin HFA 108 (90 Base) MCG/ACT Inhalation Aerosol Solution; Inhale 2 Puffs by mouth every 4 hours as needed for Shortness of Breath or Wheezing. Dispense: 18 g; Refill: 1 2. Tobacco use 3. Acute rhinosinusitis - Amoxicillin 875 MG Oral Tablet; Take 1 Tablet by mouth in the morning and 1 Tablet before bedtime. Do all this for 10 days. Dispense: 20 Tablet; Refill: 0 (if persistent symptoms over one week) - Fluticasone Propionate 50 MCG/ACT Nasal Suspension (Flonase); Administer 2 Sprays into each nostril in the morning. Dispense: 18.2 mL; Refill: 1 4. Upper respiratory tract infection, unspecified type Wrap-Up As needed Time: I spent a total of 20-29 minutes (exact time 25 mins) on the date of service in preparation, delivery, and documentation of the care provided to Joyce Purcell excluding any time spent in the performance of separately billed services. documented in this encounter Nursing Notes * Oralia Cherry, AMIRAA - 09/07/2024 9:39 AM EDT Chief Complaint Patient presents with Sinus Problem Post nasal drainage, bilateral ear itching x 5 days documented in this encounter Plan of Treatment Upcoming Encounters Date Type Department Care Team (Late st Contact Info) Description 09/14/2024 8:00 AM EST Office Visit [facility] [address] [place] [address] Niall Slaughter MD [address] [place] [address] Scheduled Procedures Name Priority Associated Diagnoses Date/Ti [...] as of this encounter Visit Diagnoses Diagnosis Acute rhinosinusitis- Primary Acute sinusitis, unspecified Wheezing Tobacco use Tobacco use disorder Upper respiratory tract infection, unspecified type documented in this encounter
--- OUTSIDE RECORDS SUMMARY | 2024-11-06 11:45 | External Medical Summary | Summary of Care ---
Author Name Unknown Organization [facility] Address [address] [place] [address] Phone [phone] Care Team Providers Care Screw Machine Operator Name Role Phone Unavailable Primary Care Provider Unavailabl e Reason for Visit * Reason Onset Date Comments Imaging Records Request 10/16/2024 Encounter Details Date Type Department Care Team (Late st Contact Info) Description 10/16/2024 Telephone Radiology Film File [address] [place] [address] Support, Imaging Radiology [address] [place] [address] Imaging Records Request Allergies Active [...] also discussed Maliha Rueda and her book [place] of the mind. Subclinical hypothyroidism 07/04/2020 Assessment [...] System Support - 10/16/2024 12:44 PM EST [facility] requesting xr lsp 10/15/24, MRI lsp 10/19/23 images be pushed to theirsystem. [place] Authorization to Release on file. Images pushed to [facility] external connection through PACs report(s) faxed to: [phone] documented in this encounter Plan of Treatment [...]
--- OUTSIDE RECORDS SUMMARY | 2024-11-06 11:45 | External Medical Summary | Summary of Care ---
Author Name Unknown Organization [facility] Address [address] [place] [address] Phone [phone] Care Team Providers Care Photolithographic Stripper Name Role Phone Theresa Saucedo Primary Care Provider +1- [phone] Reason for Visit * Reason Onset Date Comments Medication Refill 08/02/2024 Encounter Details Date Type Department Care Team (Late st Contact Info) Description 08/02/2024 [facility] [place] [address] Theresa Saucedo CRNP [address] [facility] [address] Fibromyalgia; Subclinical hypothyroidism; Grief reaction; [...] also discussed Maliha Rueda and her book [place] of the mind. Subclinical hypothyroidism 07/04/2020 Last [...] encounter Miscellaneous Notes * Telephone Encounter - Gris Coronado MD - 08/03/2024 9:07 AM EDT Refused Prescriptions: Disp Refills busPIRone HCl 10 MG Oral Tablet (Buspar) 180 Ta*2 Sig: Take 1 Tablet by mouth in the morning and 1 Tablet before bedtime.Refused By: ACKAH, GRIS ALEXANDROVNAReason for Refusal: Other (comment below) * Telephone [...] BEDTIME * Telephone Encounter - Kev Quintero, male infertility specialist - 08/02/2024 9:51 AM EDT Pt pharmacy stating pt out of refills. Did you pend patient's preferred pharmacy and medication before forwarding?yes Pharmacy: [facility] [id number] [address] [place] Pending Prescriptions: Disp Refills DULoxetine HCl 30 [...] or any previous visit. Patient Phone Numbers [facility] [phone] Labs: Lab Results Component Value Date/Time CREAT [...] type documented in this encounter Care Teams Photolithographic Stripper Relationship Specialty Start Date End Date Theresa Saucedo CRNP [address] [place] [id number] PCP - General Nurse Practitioner 11/04/22 documented as of this encounter
--- OUTSIDE RECORDS SUMMARY | 2024-11-06 11:45 | External Medical Summary | Summary of Care ---
Author Name Unknown Organization [facility] Address [address] [facility] [place] [address] Phone [phone] Care Team Providers Care Data Conversion Analyst Name Role Phone Unavailable Primary Care Provider Unavailabl e Reason for Visit * Reason Onset Date Comments Advice 10/30/2024 Encounter Details Date Type Department Care Team (Late st Contact Info) Description 10/30/2024 Telephone Access Center, [place] [address] [facility] [address] *DO NOT REMOVE THIS DEPARTMENT* [place], [place] [id number] [address] ADDRESS AVAILABLE Advice Allergies Active Allergy Reactions Criticality Noted Date Comments Morphine Hives 02/06/2016 hives documented as of this encounter (statuses as of 10/31/2024) Medications DULoxetine HCl 30 MG Oral Capsule Delayed Release Particles (Cymbalta) Take 1 Capsule by mouth in the morning. 90 Capsule 3 08/03/20 24 Active DULoxetine HCl 60 MG Oral Capsule Delayed Release Particles (Cymbalta)Indicat ions:Fibromyalgia Take 1 Capsule by mouth in the morning. 90 Capsule 3 08/03/20 24 Active Levothyroxine Sodium 25 MCG Oral Tablet (Levoxyl)Indicati ons:Subclinical hypothyroidism TAKE ONE TABLET BY MOUTH IN THE MORNING at least 30 mins prior to breakfast or other meds 90 Tablet 3 08/03/20 24 Active Pregabalin 150 MG Oral Capsule (Lyrica)Indicatio ns:Fibromyalgia Take 1 Capsule by mouth in the morning and 1 Capsule before bedtime. 60 Capsule 5 08/03/20 24 Active buPROPion HCl ER (XL) 150 MG Oral Tablet Extended Release 24 Hour (Wellbutrin XL) Take 1 Tablet by mouth in the morning. 90 Tablet 3 08/03/20 24 Active traZODone HCl 100 MG Oral Tablet (Desyrel)Indicati ons:Insomnia, unspecified type Take 1.5 Tablets by mouth at bedtime. 135 Tablet 3 08/03/20 24 Active Acetaminophen 500 MG Oral Tablet (Tylenol) 2 Tablets every 4 hours as needed. 01/11/20 24 Active Fluticasone Propionate 50 MCG/ACT Nasal Suspension (Flonase)Indicati ons:Acute rhinosinusitis Administer 2 Sprays into each nostril in the morning. 18.2 mL 1 09/07/20 24 Active Lidocaine 5 % External Patch (Lidoderm) Place 1 Patch over 12 hours topically on the skin daily. 30 Patch 10/15/20 Active Ventolin HFA 108 (90 Base) MCG/ACT Inhalation Aerosol SolutionIndicatio ns:Wheezing Inhale 2 Puffs by mouth every 4 hours as needed for Shortness of Breath or Wheezing. 18 g 1 10/29/20 24 Active Cyclobenzaprine HCl 5 MG Oral Tablet (Flexeril)Indicat ions:Back muscle spasm Take 1 Tablet by mouth 3 times a day as needed for Muscle spasms. 30 Tablet 10/30/20 24 Active Cyclobenzaprine HCl 5 MG Oral Tablet (Flexeril) Take 1-2 tablets up to 3 times a day as needed for muscle spasms. 30 Tablet 10/15/20 24 2023 Discontinued documented as of this encounter (statuses as of 10/31/2024) Active Problems Problem Noted Date Diagnosed Date [...] also discussed Maliha Rueda and her book [place] of the mind. Subclinical hypothyroidism 07/04/2020 Assessment [...] as of this encounter (statuses as of 10/31/2024) Immunizations Name Administration Dates Next Due Seasonal [...] encounter Miscellaneous Notes * Telephone Encounter - Tere Artis CCMA - 10/31/2024 8:38 AM EST Spoke with patient regarding message below. Patient understands and acknowledges message. * Telephone Encounter - Lorrie Coronado MD - 10/30/2024 5:22 PM EST Called patient. She was seen in ER on 10/15/24 and went to her ortho spine surgeon on 10/17/24 due to back pain. Patient will have MRI on 11/07/24. Patient reports that Flexeril was not called in to [facility] pharmacy (prescribed in ED). New script sent. * Telephone Encounter - Margaret Ford OSA - 10/30/2024 9:21 AM EST Patient wants to know if pain meds can be called in for her back she says it may be a ruptured discor a pinched nerve , she says she does not have an appointment until the . Please advise documented in this encounter Plan of Treatment Upcoming Encounters Date Type Department Care Team (Late st Contact Info) Description 11/07/2024 2:00 PM EST Appointment Radiology, [address] [address] Scheduled Procedures Name Priority Associated Diagnoses [...] Depression Monitoring 01/25/2025 01/26/2024 TSH 01/25/2025 01/26/2024, 1212/2020, 04/11/2020, Additional history exists Lipid Panel 04/11/2025 [...] Other specified acquired hypothyroidism Insomnia, unspecified type Back muscle spasm- Primary Other symptoms referable to back documented in this encounter
--- OUTSIDE RECORDS SUMMARY | 2024-11-06 11:45 | External Medical Summary | Summary of Care ---
Author Name Unknown Organization [facility] Address [address] [place] [address] Phone [phone] Care Team Providers Care Certified Ski Patroller Name Role Phone Unavailable Primary Care Provider Unavailabl e Reason for Visit * Reason Comments Back Pain * Auth/Cert Specialty Diagnoses / Procedures Referred By Zaynab t Referred To Contact [facility] [address] [place] [address] Phone: [phone] [facility] Emergency Department ([facility]) [address] [place] [address] Phone: tel: fax: Referral ID Status Reason Start Date Expiration Date Visits Re quested Visits Authorized [id number] Encounter Details Date Type Department Care Team (Late st Contact Info) Description 10/15/2024 6:11 PM EST - 10/15/2024 8:55 PM EST Emergency [facility] Emergency Department ([facility]) [address] [place] [address] Nba Gonzalez, DO [address] [place] [address] Acute bilateral low back pain without sciatica (Primary Dx); Muscle spasms of both lower extremities Discharge Disposition: Home - Self Care Allergies Active Allergy Reactions Criticality Noted Date [...] also discussed Maliha Rueda and her book [place] of the mind. Subclinical hypothyroidism 07/04/2020 Assessment [...] PM EST documented as of this encounter Last Filed Vital Signs Vital Sign Reading Time Taken Comments Blood Pressure 103/65 10/15/2024 8:30 PM EST Pulse 66 10/15/2024 8:30 PM EST Temperature 36.4 C (97.5 F) 10/15/2024 6:17 PM ES T Respiratory Rate 18 10/15/2024 8:30 PM EST Oxygen Saturation 100% 10/15/2024 6:17 PM EST Inhaled Oxygen Concentration - - Weight - - Height - - Body Mass Index - - documented in this encounter Discharge Instructions * Discharge Instructions* Ruperto Medina PA-C - 10/15/2024 8:31 PM EST Please use ytsa-xxc-tqlpbii meds, lidocaine patches, rbzb-spc-rnjqbfg creams to help with her pain,Flexeril may be used for muscle spasms and back pain. Please make an appointment to follow up with her primary care doctor within the next week for re-evaluation. Rest and relax over the next few days. Should he develop numbness or weakness, inability to walk, bowel or bladder incontinence, or any n ew concerns report back to the ED sooner. documented in this encounter ED Notes * Ruperto Medina PA-C - 10/15/2024 8:55 PM EST HISTORY OF PRESENT ILLNESS Joyce Purcell is a 59 year old female who presents to the ED for evaluation of Back Pain. The patient was seen at 10/15/241812. Patient presents today with complaints of bilateral low back pain that started this evening. She was trying to help her orndxy-lr-sll while using her walker, and felt a pop in her back and has had pain since. She has been able to ambulate, but she was complaining of m uscle spasms in her back, and uncontrollable spasms in her legs and all over her body. She reports she does have a history of fibromyalgia and gets similar spasms at times. Denies any falls, fevers, bowel or bladder incontinence, numbness, weakness, or saddle paresthesias. Back Pain Review of Systems Musculoskeletal: Positive for back pain. The patient's allergies, past history, and medications were reviewed. PHYSICAL EXAM Initial Vitals (see all): BP 141/116 | Pulse 75 | Resp 18 | Temp 97.5 | O2 100 %Weight 70.17 kg | Height 157.5 cm | BMI 28.3 kg/m2 Initial Pain Assessment (see all): 10 (severe pain)/10 ([facility] Adult Scale 0-10) Physical Exam Vitals and nursing note reviewed. Constitutional: Appearance: Normal appearance. She is not ill-appearing. Cardiovascular: Rate and Rhythm: Normal rate. Musculoskeletal: Comments: Hypersensitive with palpation of anywhere in the in the lumbar back, both midline and paraspinal muscles, Some palpable spasms noted left lumbar spinal muscles. No skin changes midline surgical scar noted in the lumbar spine Plantar and dorsiflexion intact without weakness reports increased pain in her lumbar spine with hip flexion bilaterally. Sensation intact to both feet, and inner thighs. Somewhat tremulous during exam Neurological: Mental Status: She is alert. PROCEDURES AND TREATMENTS ED Orders | ED Results MEDICAL DECISION MAKING Nursing notes and vital signs were reviewed. ED Course as of 10/15/24 2327 Sun Oct 15, 20242030 XR L Spine 2-3 Views My x-ray interpretation, hardware appears stable, no malalignments [JW] ED Course User Index [JW] Ruperto Medina PA-C Differential Diagnoses Based on my history, physical exam, and evaluation, the differential includes, but is not limited, to the following diagnoses: Low back pain, musculoskeletal sprain, strain, lumbar radiculopathy, fibromyalgia, muscle spasm, less likely cauda equina, fracture, hardware malfunction, SEA. 51-year-old female presents today with complaints of low back pain that happened while she was trying to lift her zaqird-xu-vob. Pretty hypersensitive to any palpation in low back, However sensation and motor function intact to both lower extremities. Given she has had previous surgery, will get x-rays of her back, and medicate for pain. On re-evaluation, patient resting comfortably in bed, scrolling on her phone. She then reports her pain was 10.5/10, and started to have tremors again. She has been ambulatory to the bathroom. Discussed that her x-rays were not officially read by the radiologist yet, but she reports she asked to leave to take care of her vjdsla-uc-ame. Will send her with a script for Flexeril, lidocaine patches, and advice for rice therapy, and follow up with her PCP. She had no further questions and she was discharged Amount and/or Complexity of Data Reviewed Radiology: ordered. Decision-making details documented in ED Course. Risk OTC drugs. Prescription drug management. Clinical Impressions Acute bilateral low back pain without sciatica Muscle spasms of both lower extremities Disposition Discharged. The patient's condition at disposition was: stable. Discharge Medications Disp Refills Start End Lidocaine 5 % External Patch (Lidoderm) 30 Patch 0 10/15/2024 -- Sig - Route: Place 1 Patch over 12 hours topically on the skin daily. - Transdermal Class: ePrescribing Renewals Renewal requests to authorizing provider (Ruperto Medina PA-C) <b>prohibited</b> Cyclobenzaprine HCl 5 MG Oral Tablet (Flexeril) 30 Tablet 0 10/15/2024 -- Sig: Take 1-2 tablets up to 3 times a day as needed for muscle spasms. Class: ePrescribing Renewals Renewal requests to authorizing provider (Ruperto Medina PA-C) <b>prohibited</b> Nba Gonzalez was the attending physician who supervised the care of this patient. Ruperto Medina PA-C Cosigned by Nba Gonzalez DO at 10/16/2024 12:08 AM EST * Ana Sosa RN - 10/15/2024 6:18 PM EST Pt presents to ed with with c/o lower back pain onset this evening when she was helping care for her mother n law when she twisted her back, heard a pop and has since had pain. Also states she has muscle spasms. documented in this encounter Miscellaneous Notes * ED Process Development Technician Note - Willow Merlos RN - 10/15/2024 8:53 PM EST Patient left the department. Patient ambulated out of the department with steady gait and the use of a walker * ED Process Development Technician Note - Willow Merlos RN - 10/15/2024 8:35 PM EST Patient requesting pain medication prior to discharge so that she can sleep tonight, claims a pain level of 10.5/10. Patient sitting upright in bed. Patient verbalizes understanding of d/c instructions and denies any other questions at this time. Rk FOSTER notified of patient's request. * Pt Handout (on AVS) - Ruperto Medina PA-C - 10/15/2024 8:29 PM EST Images from the original note were not included. [id number] Self-Care for Low Back Pain Most people have low back pain now and then. In many cases, it isn?t serious, and self-care can help. Sometimes low back pain can be a sign of a bigger problem. Call your healthcare provider if your pain returns often or gets worse over time. There are plenty of ways to take care of your back. Get regular exercise, lose any excess weight, and practice good posture. Take a short rest Lying down during the day may be helpful for short periods of time if pain worsens with sitting or standing. It may help to have a pillow under the knees when lying on your back. But, keep in mind, long-term bed rest could be damaging. Reduce pain and swelling Cold reduces swelling. Both cold and heat can reduce pain. Remember to protect your skin by placinga towel between your body and the ice or heat source. For the first few days, apply an ice pack for 15 to 20 minutes, several times a day. To make a cold pack, put ice cubes in a plastic bag that seals at the top. A wrapped frozen bag of vegetables can also work as a cold pack. After the first few days, try heat for 15 minutes at a time to ease pain. Always make sure the heating pad is wrapped. Never sleep on a heating pad. Qdml-kdb-mczlodk medicine can help control pain and swelling. Try aspirin or a nonsteroidal anti-inflammatory drugs (NSAIDs) such as ibuprofen. Exercise Exercise can help your back heal. It also helps your back get stronger and more flexible, preventing any reinjury. Ask your healthcare provider about specific exercises for your back. Use good posture to avoid reinjury When moving, bend at the hips and knees. Don?t bend at the waist or twist around. When lifting, keep the object close to your body. Lift heavy items using your legs, not your back. Don?t try to lift more than you can handle. When sitting, keep your lower back supported. Use a rolled-up towel as needed. Make sure your work area or desk is at the correct height. Use a mirror to check your posture when you walk. Stand straight with shoulders back. Ask your healthcare providers for exercises that will improve your posture. When to seek medical care Seek medical care right away if: You can't stand or walk You have a temperature over 100.4F ( 38.0C), or as advised by your healthcare provider You have frequent, painful, or bloody urination You have severe abdominal pain You have a sharp, stabbing pain Your pain is constant You have pain, tingling, or numbness in your leg You have weakness in one or both legs or problems with bladder, bowel, or sexual function. Thesesymptoms should be seen by a healthcare provider right away. This is because they can be caused by compression of the nerve bundle at the base of the spine. You feel pain in a new area of your back You notice that the pain isn?t decreasing after more than a week Your symptoms worsen or new symptoms develop Last Reviewed Date: 2024 00:00:00 9860-1924 [employer]. All rights reserved. This information is not intended as a substitute for professional medical care. Always follow your healthcare professional's instructions. documented in this encounter Plan of Treatment [...] 05/08, 03/02/2017, Additional history exists COVID-19 Vaccine (2023- season) 2024 Influenza Vaccine (FLU shot) (#1) [...] Not on filedocumented as of this encounter Procedures Procedure Name Priority Date/Time Associated Diagnosis Comments XR L SPINE AP AND LATERAL STAT 10/15/2024 6:54 PM EST documented in this encounter Results * XR L SPINE 2-3 VIEWS (10/15/2024 6:54 PM EST) Anatomical Region Laterality Modality Vertebra, Lspine Digital Radiogr aphy 10/15/2024 6:54 PM EST Impressions 10/15/2024 8:44 PM EST IMPRESSION: 1. No acute findings. 2. Unremarkable appearance of the posterior spinal fusion hardware at L4-S1 with interbody fusion cages. THIS DOCUMENT HAS BEEN ELECTRONICALLY SIGNED BY VIJAY MINA MD Narrative 10/15/2024 8:44 PM EST PROCEDURE INFORMATION: Exam: XR Lumbosacral Spine Exam date and time: 10/15/2024 6:54 PM Age: 59 years old Clinical indication: Low back pain; Prior surgery; Surgery date: 6+ months; Surgery type: Fusion; Additional info: Low back pain, surgery 8months ago TECHNIQUE: Imaging protocol: Radiologic exam of the lumbosacral spine. Views: 2 or 3 views. COMPARISON: MRI L SPINE WO CONTRAST 10/19/2023 2:35 PM FINDINGS: Bones/joints: No acute fracture. Normal alignment. Posterior spinal fusion hardware at L4-S1 with interbody fusion cages. No hardware loosening or fracture. Soft tissues: Unremarkable. Procedure Note Vijay Mina MD - 10/15/2024 PROCEDURE INFORMATION: Exam: XR Lumbosacral Spine Exam date and time: 10/15/2024 6:54 PM Age: 59 years old Clinical indication: Low back pain; Prior surgery; Surgery date: 6+months; Surgery type: Fusion; Additional info: Low back pain, surgery 8months ago TECHNIQUE: Imaging protocol: Radiologic exam of the lumbosacral spine. Views: 2 or 3 views. COMPARISON: MRI L SPINE WO CONTRAST 10/19/2023 2:35 PM FINDINGS: Bones/joints: No acute fracture. Normal alignment. Posterior spinal fusion hardware at L4-S1 with interbody fusion cages. No hardware loosening or fracture. Soft tissues: Unremarkable. IMPRESSION IMPRESSION: 1. No acute findings. 2. Unremarkable appearance of the posterior spinal fusion hardware atL4-S1 with interbody fusion cages. THIS DOCUMENT HAS BEEN ELECTRONICALLY SIGNED BY VIJAY MINA MD Ruperto Medina PA-C RADIOLOGY (RAD GENERA L) Final Result documented in this encounter Visit Diagnoses Diagnosis NAUN (generalized anxiety disorder)- Primary Generalized anxiety disorder Fibromyalgia Mylagia and myositis, unspecified Subclinical hypothyroidism Other specified acquired hypothyroidism Insomnia, unspecified type Acute bilateral low back pain without sciatica- Primary Muscle spasms of both lower extremities documented in this encounter Administered Medications Inactive Administered Medications - up to 3 most recent administrations Medication Order MAR Action Action Date Dose Rate Site cyclobenzaprine (Flexeril) 5 mg tab 5 mg, Oral, ONCE, On 10/15/24 at 1900, For 1 dose Given 10/15/2024 6:30 PM EST 5 mg keTORolac (Toradol) 30 MG/ML inj 15 mg 15 mg, Intramuscular, ONCE, On 10/15/24 at 1900, For 1 dose Given 10/15/2024 6:33 PM EST 15 mg Arm Left Upper Lidocaine (Aspercreme) 4 % patch 1 Patch 1 Patch, Transdermal, ONCE, On 10/15/24 at 1900, For 1 dose, Apply patch for 12 hours then remove for 12 hours! Remove any Lidocaine patches the patient may currently be wearing prior to applying the new patch Patch Applied 10/15/2024 6:33 PM EST 1 Patch Back Middle documented in this encounter Active and Recently Administered Medications Times are shown in EST. Scheduled Medication Order 10/13/2024 10/14/2024 10/15/2024 cyclobenzaprine (Flexeril) 5 mg tab (COMPLETED) 5 mg, Oral, ONCE, On 10/15/24 at 1900, For 1 dose 1830 (Given - Provid er: Faviola Winslow RN) keTORolac (Toradol) 30 MG/ML inj 15 mg (COMPLETED) 15 mg, Intramuscular, ONCE, On 10/15/24 at 1900, For 1 dose 1832 (Given - Provid er: Faviola Winslow RN) Lidocaine (Aspercreme) 4 % patch 1 Patch 1 Patch, Transdermal, ONCE, On 10/15/24 at 1900, For 1 dose, Apply patch for 12 hours then remove for 12 hours! Remove any Lidocaine patches the patient may currently be wearing prior to applying the new patch 1832 (Patch Applied - Provider: Faviola Winslow RN)2054 (Due: Patch Removed - Provider: Discharge, Physician - Comment: Time automatically adjusted from order being discontinued) documented in this encounter"
--- OUTSIDE RECORDS SUMMARY | 2024-11-06 11:45 | External Medical Summary | Summary of Care ---
Author Name Unknown Organization [facility] Address [address] [facility] [place] [address] Phone [phone] Care Team Providers Care Campus Police Officer Name Role Phone Unavailable Primary Care Provider Unavailabl e Reason for Visit * Reason Comments eRx-Medication Refill Encounter Details Date Type Department Care Team (Late st Contact Info) Description 10/28/2024 Refill [facility] [address] [facility] [address] [place] [address] Lorrie Coronado MD [address] [facility] [address] [place] [id number] Wheezing Allergies Active Allergy Reactions Criticality Noted Date Comments Morphine Hives 02/06/2016 hives documented as of this encounter (statuses as of 10/29/2024) Medications DULoxetine HCl 30 MG Oral Capsule [...] on the skin daily. 30 Patch 10/15/20 24 Active Cyclobenzaprine HCl 5 MG Oral Tablet (Flexeril) Take 1-2 tablets up to 3 times a day as needed for muscle spasms. 30 Tablet 10/15/20 24 Active Ventolin HFA 108 (90 Base) MCG/ACT Inhalation Aerosol SolutionIndicatio ns:Wheezing Inhale 2 Puffs by mouth every 4 hours as needed for Shortness of Breath or Wheezing. 18 g 1 10/29/20 24 Active Ventolin HFA 108 (90 Base) MCG/ACT Inhalation Aerosol SolutionIndicatio ns:Wheezing Inhale 2 Puffs by mouth every 4 hours as needed for Shortness of Breath or Wheezing. 18 g 1 09/07/20 24 2023 Discontinued documented as of this encounter (statuses as of 10/29/2024) Active Problems Problem Noted Date Diagnosed Date [...] also discussed Maliha Rueda and her book [place] of the mind. Subclinical hypothyroidism 07/04/2020 Assessment [...] as of this encounter (statuses as of 10/29/2024) Immunizations Name Administration Dates Next Due Seasonal [...] encounter Miscellaneous Notes * Telephone Encounter - Lang Wakefield, [facility] - 10/29/2024 8:53 AM ESTSigned Prescriptions: Disp Refills Ventolin HFA 108 (90 Base) MCG/ACT Inhalat*18 g 1 Sig: Inhale 2 Puffs by mouth every 4 hours as needed for Shortness of Breath or Wheezing.Authorizing Provider: LORRIE CORONADO User: LANG [place] documented in this encounter Plan of Treatment Upcoming Encounters Date Type Department Care Team (Late st Contact Info) Description 11/07/2024 2:00 PM EST Appointment Radiology, [place] [address] Scheduled Procedures Name Priority Associated Diagnoses Date/Ti [...] 04/11/2025 04/11/2020, 01/20/2019 Pap Smear 01/04/2027 01/04/2024, 0711/2018, 05/18/2019 Diabetes Screening 06/23/2027 06/23/2024, 0 01/26/2024, [...] Other specified acquired hypothyroidism Insomnia, unspecified type Wheezing documented in this encounter
--- OUTSIDE RECORDS SUMMARY | 2024-11-06 11:45 | External Medical Summary | Summary of Care ---
Author Name Unknown Organization [facility] Address [address] [place] [address] Phone [phone] Care Team Providers Care Residential Carpet Installer Name Role Phone Unavailable Primary Care Provider Unavailabl e Reason for Visit * Reason Onset Date Comments Advice 10/30/2024 Encounter Details Date Type Department Care Team (Late st Contact Info) Description 10/30/2024 Telephone Access Center, [place] [address] *DO NOT REMOVE THIS DEPARTMENT* [place], [place] [id number] Self [address] ADDRESS AVAILABLE Advice Allergies Active Allergy Reactions Criticality Noted Date Comments Morphine Hives 02/06/2016 hives documented as of this encounter (statuses as of 10/30/2024) Medications DULoxetine HCl 30 MG Oral Capsule [...] skin daily. 30 Patch 10/15/20 24 Active Ventolin HFA 108 (90 [...] as of this encounter (statuses as of 10/30/2024) Active Problems Problem Noted Date Diagnosed Date [...] also discussed Maliha Rueda and her book [place] of the mind. Subclinical hypothyroidism 07/04/2020 Assessment [...] as of this encounter (statuses as of 10/30/2024) Immunizations Name Administration Dates Next Due Seasonal [...] encounter Miscellaneous Notes * Telephone Encounter - Lorrie Coronado MD - 10/30/2024 5:22 PM EST Called patient. She was seen in ER on 10/15/24 and went to her ortho spine surgeon on 10/17/24 due to back pain. Patient will have MRI on 11/07/24. Patient reports that Flexeril was not called in to [facility] pharmacy (prescribed in ED). New [...] Description 11/07/2024 2:00 PM EST Appointment Radiology, [address] [address] Scheduled Procedures Name Priority Associated [...]
--- OUTSIDE RECORDS SUMMARY | 2024-11-06 11:46 | External Medical Summary | Summary of Care ---
Author Name Unknown Organization [facility] Address [address] [place] [address] Phone [phone] Care Team Providers Care Business Records Manager Name Role Phone Theresa Saucedo Primary Care Provider [phone] Encounter Details Date Type Department Care Team (Late st Contact Info) Description 07/25/2024 Orders Only Outcomes Research Department [address], [place] [id number] Earlene Sandy CHRA [employer] [facility] Other*[id number] Allergies Active Allergy Reactions Criticality Noted Date Comments Morphine Hives 02/06/2016 hives documented as of this encounter (statuses as of 07/25/2024) Medications Medication Sig Dispensed Refills Start Date End Date Status saline ([employer] SALINE NOSE SPRAY) 0.65 % nasal spray Administer 1 [place] into nostril as needed for Congestion. 30 [...] Shortness of Breath or Wheezing. 18 g 01/28/2023 Active Additional Information Patient not taking.Reported [...] before bedtime. 180 Tablet 2 09/24/2023 Active Vitamin D3 50 MCG (2000 UT) Oral Capsule (Cholecalciferol)Ind ications:Vitamin D insufficiency Take 1 Capsule by mouth in the morning. 90 Capsule 1 01/28/2024 Active Pregabalin 150 MG Oral Capsule (Lyrica)Indications: Fibromyalgia Take 1 Capsule by mouth in the morning and 1 Capsule before bedtime. 60 Capsule 05/16/2024 Active Promethazine HCl 25 MG Oral Tablet (Phenergan) Take 1 Tablet by mouth every 6 hours as needed for Nausea for up to 20 doses. 20 Tablet 06/23/2024 Active documented as of this encounter (statuses as of 07/25/2024) Active Problems Problem Noted Date Diagnosed Date Other specified hypothyroidism 07/04/2020 DDD (degenerative disc disease), lumbar 05/23/20 19 MEDICATION USE AGREEMENT 08/04/2018 Overview: Working on weaning off tramadol. (referred to Pain MTM) History of cervical cancer 07/20/2018 Fibromyalgia 09/29/2017 Chronic seasonal allergic rhinitis 09/29/2017 Generalized osteoarthritis of multiple sites documented as of this encounter (statuses as of 07/25/2024) Immunizations Name Administration Dates Next Due Seasonal [...] as of this encounter Plan of Treatment Scheduled Orders Name Type Priority Associated Diagnoses Orde r Schedule MYCODE SUBSEQUENT ADULT Lab Routine [facility] Other*[id number] Every 6 Months for 2 Occurrences starting 07/25/2024 until 08/14/2025 Scheduled Procedures Name Priority Associated Diagnoses Date/Ti [...] Additional history exists COVID-19 Vaccine ( - 2022- season) 2024 Influenza Vaccine (FLU shot) (#1) [...] as of this encounter Visit Diagnoses Diagnosis [facility] Other*[id number] documented in this encounter Care Teams Business Records Manager Relationship Specialty Start Date End Date Theresa Saucedo CRNP [address] [place] [id number] PCP - General Nurse Practitioner 11/04/22 documented as of this encounter
--- OUTSIDE RECORDS SUMMARY | 2024-11-06 11:46 | External Medical Summary | Summary of Care ---
Author Name Unknown Organization [facility] Address [address] [place] [address] Phone [phone] Care Team Providers Care Prom Burn Off Operator Name Role Phone Theresa Saucedo Primary Care Provider [phone]- [phone] Reason for Visit * Reason Comments Vomiting * Auth/Cert Specialty Diagnoses / Procedures Referred By Contac t Referred To Contact [facility] [address] [place] [address] Phone: [phone] Emergency Medicine [facility] [address] [place] [address] Referral ID Status Reason Start Date Expiration Date Visits Re quested Visits Authorized [id number] Encounter Details Date Type Department Care Team (Late st Contact Info) Description 06/23/2024 12:21 AM EDT - 06/23/2024 3:47 AM EDT Emergency [facility] Emergency Department ([facility]) [address] [place] [address] Joe Cruz MD [address] [place], [place] [id number] Gastroenteritis (Primary Dx) Discharge Disposition: Home - Self Care Allergies Active Allergy Reactions Criticality Noted Date Comments Morphine Hives 02/06/2016 hives documented as of this encounter (statuses as of 06/23/2024) Medications Medication Sig Dispensed Refills Start Date End Date Status saline ([facility] SALINE NOSE SPRAY) 0.65 % nasal spray Administer 1 [place] into nostril as needed for Congestion. 30 [...] to 20 doses. 20 Tablet 06/23/2024 Active Potassium Chloride ER 20 MEQ Oral Tablet Extended Release Take 1 Tablet by mouth in the morning for 7 days. 7 Tablet 06/23/2024 4 Active documented as of this encounter (statuses as of 06/23/2024) Active Problems Problem Noted Date Diagnosed Date Other specified hypothyroidism 07/04/2020 DDD (degenerative disc disease), lumbar 05/23/20 19 MEDICATION USE AGREEMENT 08/04/2018 Overview: Working on weaning off tramadol. (referred to Pain MTM) History of cervical cancer 07/20/2018 Fibromyalgia 09/29/2017 Chronic seasonal allergic rhinitis 09/29/2017 Generalized osteoarthritis of multiple sites documented as of this encounter (statuses as of 06/23/2024) Immunizations Name Administration Dates Next Due Seasonal [...] Sign Reading Time Taken Comments Blood Pressure 138/118 06/23/2024 3:30 AM EDT Pulse 59 06/23/2024 3:30 AM EDT Temperature 36.7 C (98 F) 06/23/2024 2:33 AM EDT Respiratory Rate 18 06/23/2024 3:30 AM EDT Oxygen Saturation 97% 06/23/2024 12:19 AM EDT Inhaled Oxygen Concentration - - Weight 74.8 kg (165 lb) 06/23/2024 12:19 AM EDT Height - - Body Mass Index 30.18 01/04/2024 6:57 AM EST documented in this encounter Discharge Instructions * Discharge Instructions* Joe Cruz MD - 06/23/2024 3:35 AM EDT Phenergan may be used up to 4 times a day Please take potassium pills for the next week documented in this encounter ED Notes * Joe Cruz MD - 06/23/2024 12:28 AM EDT HISTORY OF PRESENT ILLNESS Joyce Purcell is a 59 year old female who presents to the ED for evaluation of Vomiting. The patient was seen at 06/23/24 0027. Patient has been ill for 2 days with vomiting and diarrhea multiple episodes. There is a cough. There was no belly pain. She starting to feel dehydrated. There is no fever. There was no recent treatment with antibiotics Vomiting Review of Systems Gastrointestinal: Positive for vomiting. The patient's allergies, past history, and medications were reviewed. PHYSICAL EXAM Initial Vitals (see all): BP 135/75 | Pulse 83 | Resp 18 | Temp 97.3 | O2 97 %, Room Air, None | Weight 74.84 kg | Height 157.5 cm | BMI 30.18 kg/m2 Initial Pain Assessment (see all): 0 (no pain)/10 ([facility] Adult Scale 0-10) General: Alert. appropriate for age. no acute distress. nontoxic. Skin: Warm, dry. Head: Atraumatic. Neck: trachea midline. No distended neck veins supple Eye: Normal conjunctiva. PERRL, EOMI, Ears, nose, mouth and throat: airway patent. No inflammation Dry mucous membranes Cardiovascular: Normal peripheral perfusion. Regular rate and rhythm without murmurs or extra sounds. No distended neck veins. . Respiratory: no respiratory distress. The lungs are clear to auscultation without rales wheezes or rhonchi. Breath sounds equal and present bilaterally. Gastrointestinal: Non distended. Abdomen is soft and nontender. No guarding. No rebound. No organomegaly. Musculoskeletal: No deformity. Neurological: No focal neurological deficit observed. alert. Psychiatric: Cooperative. Differential diagnosis Gastroenteritis, dehydration, acute renal failure PROCEDURES AND TREATMENTS ED Orders | ED Results MEDICAL DECISION MAKING Nursing notes and vital signs were reviewed. ED Course as of 06/23/24 0337 WedJun 23, 2024 0319 Urinalysis, Reflex to Culture(!) Ketones noted. Sample appears contaminated and doubt UTI [DR] ED Course User Index [DR] Joe Cruz MD Amount and/or Complexity of Data Reviewed Labs: ordered. Decision-making details documented in ED Course. Radiology: ordered. Risk Prescription drug management. Clinical Impressions Gastroenteritis Disposition Discharged. The patient's condition at disposition was: stable. Discharge Medications Disp Refills Start End Promethazine HCl 25 MG Oral Tablet (Phenergan) 20 Tablet 0 06/23/2024 -- Sig - Route: Take 1 Tablet by mouth every 6 hours as needed for Nausea for up to 20 doses. - Oral Class: ePrescribing Renewals Renewal requests to authorizing provider (Joe Cruz MD) <b>prohibited</b> Potassium Chloride ER 20 MEQ Oral Tablet Extended Release 7 Tablet 0 06/23/2024 06/30/2024 Sig - Route: Take 1 Tablet by mouth in the morning for 7 days. - Oral Class: ePrescribing Renewals Renewal requests to authorizing provider (Joe Cruz MD) <b>prohibited</b> Joe Cruz * Hafsa Vitale RN - 06/23/2024 12:20 AM EDT Vomiting and diarrhea x2 days. documented in this encounter Miscellaneous Notes * Pt Handout (on AVS) - Joe Cruz MD - 06/23/2024 3:34 AM EDT Images from the original note were not included. [id number] Viral Gastroenteritis (Adult) Gastroenteritis is often called the stomach flu. But it has nothing to do with influenza. It's mostoften caused by a virus that affects the stomach and intestinal tract. Most bouts last from 2 to 7 days. Common viruses causing gastroenteritis include norovirus, rotavirus, and hepatitis A. Nonviralcauses of gastroenteritis include bacteria, parasites, and toxins. The danger from repeated vomiting or diarrhea is dehydration. This is when the body loses too much fluid. When this occurs, you must replace the body fluids. Antibiotics aren't an effective treatment for this condition because it's caused by a virus. Symptoms of viral gastroenteritis may include: Watery, loose stools Stomach pain or belly (abdominal) cramps Fever and chills Nausea and vomiting Loss of bowel control Headache Home care Gastroenteritis is spread by contact with the stool or vomit of an infected person. This can occur from person to person or from contact with a contaminated surface. Follow these guidelines when caring for yourself at home: If symptoms are severe, rest at home for the next 24 hours or until you are feeling better. Wash your hands with soap and clean, running water or use alcohol-based shredded filler cigar maker machine to prevent thespread of infection. Wash your hands after touching anyone who is sick. Wash your hands or use alcohol-based shredded filler cigar maker machine after using the toilet and before meals. Clean the toilet after each use. Remember these tips when preparing food: People with diarrhea should not prepare or serve food to others. When preparing foods, wash yourhands before and after. Wash your hands after using cutting boards, counter tops, knives, or utensils that have been in contact with raw food. Dry your hands with a single-use disposable towel. Keep uncooked meats away from cooked and fnetu-co-ici foods. Medicine Use acetaminophen or nonsteroidal anti-inflammatory drugs (NSAID) such as ibuprofen or naproxen to control fever, unless another medicine was given. If you have chronic liver or kidney disease, talk with your healthcare provider before using these medicines. Also talk with your provider if you've had a stomach ulcer or gastrointestinal bleeding. Don't give aspirin to anyone under 18 years of age who is ill with a fever. It may result in a serious illness called César syndrome that may cause severe liver damage or even . Don't use NSAIDS if you're already taking one for another condition (like arthritis) or are on aspirin (such as for heart disease or after a stroke). If medicines for vomiting or diarrhea are prescribed, take these only as directed. Nausea and diarrhea medicines are generally OK unless you have bleeding, fever, or severe abdominal pain. Diet Follow these guidelines for food: Water and liquids are important so you don't get dehydrated. Drink small amounts often or suck on ice chips as tolerated if you are vomiting. If you eat, stay away from fatty, greasy, spicy, or fried foods. Don't eat dairy if you have diarrhea. This can make diarrhea worse. Avoid tobacco, alcohol, and caffeine. These may worsen symptoms. During the first 24 hours (the first full day), follow the diet below: Beverages. Sip sports drinks, soft drinks without caffeine, heath zuly, mineral water (plain or flavored), decaffeinated tea and coffee. If you are very dehydrated, sports drinks aren't a good choice. They have too much sugar and not enough electrolytes. In this case, use products called oral rehydration solutions. You can buy these at pharmacies and grocery stores. Soups. Eat clear broth, consomm, and bouillon. Desserts. Eat gelatin, ice pops, and fruit juice bars. During the next 24 hours (the second day), you may add the following to the above: Hot cereal, plain toast, bread, rolls, and crackers Plain noodles, rice, mashed potatoes, chicken noodle or rice soup Unsweetened canned fruit (avoid pineapple), bananas Limit fat intake to less than 15 grams per day. Do this by avoiding margarine, butter, oils, mayonnaise, sauces, gravies, fried foods, peanut butter, meat, poultry, and fish. Limit fiber and avoid raw or cooked vegetables, fresh fruits (except bananas), and bran cereals. Limit caffeine and chocolate. Don't use spices or seasonings other than salt. Limit dairy products. Avoid alcohol. During the next 24 hours: Gradually resume a normal diet as you feel better and your symptoms improve. If at any time it starts getting worse again, go back to clear liquids until you feel better. Follow-up care Follow up with your healthcare provider, or as advised. Call your provider if you don't get better within 24 hours or if diarrhea lasts more than a few days. It's also important to follow up if you can't keep down liquids, which can lead to becoming dehydrated. If a stool (diarrhea) sample was taken, call as directed for the results. Call 911 Call 911 if any of these occur: Trouble breathing Chest pain Confused Severe drowsiness or trouble awakening Fainting or loss of consciousness Rapid heart rate Seizure Stiff neck When to get medical advice Call your healthcare provider right away if any of these occur: Abdominal pain that gets worse Continued vomiting (can't keep liquids down) Frequent diarrhea (more than 5 times a day) Blood in vomit or stool (black or red color) Dark urine, reduced urine output, or extreme thirst Weakness or dizziness Drowsiness Fever of 100.4F (38C) or higher, or as advised by your provider Juan oliver Last Reviewed Date: 01/06/202219990030-8516 [employer]. All rights reserved. This information is not intended as a substitute for professional medical care. Always follow your healthcare professional's instructions. * ED Medical Imaging Specialist Note - Con Hudson RN - 06/23/2024 2:35 AM EDT Pt came in POV for evaluation of several days of increased fatigue/lack of appetite/N/V/D/chills without any recorded fevers. Pt reports that she is concerned for dehydration at this point. States that it has been "days" since she ate solid food. States that she "just can't get comfortable", and ishaving cold/hot flashes. Denies any current abd pain. +BS (hyperactive) x 4. Abd soft/NT/ND. Deniesany acute urinary symptoms at present other than some darker/more concentrated urine. Pt comes in and VS obtained. Peripheral line placed, and labwork collected and sent for evaluation.Meds/fluids admin per MD order. documented in this encounter Plan of Treatment Pending Results Name Type Priority Associated Diagnoses Date /Time CULTURE, URINE, QUANTITATIVE Lab STAT 06/23/2024 2:29 AM EDT Scheduled Orders Name Type Priority Associated Diagnoses Orde r Schedule CULTURE, URINE, QUANTITATIVE Lab STAT One Time for 1 Occurrences starting 06/23/2024 until 06/23/2024 Scheduled Procedures Name Priority Associated Diagnoses Date/Ti [...] history exists COVID-19 Vaccine ( - season) 2023 Influenza Vaccine (FLU shot) (#1) 2024 09/25/2019, [...] Procedure Name Priority Date/Time Associated Diagnosis Comments URINALYSIS, REFLEX TO CULTURE STAT 06/23/2024 2:29 AM EDT URINALYSIS, REFLEX TO CULTURE (CUP ONLY) STAT 06/23/2024 2:29 AM EDT URINALYSIS, REFLEX TO CULTURE (NOT FOR NEUTROPENIC PATIENTS) STAT 06/23/2024 2:29 AM EDT XR ABDOMEN OBSTRUCT SERIES W CHEST 1 VIEW STAT 06/23/2024 12:58 AM EDT DIFFERENTIAL, AUTOMATED STAT 06/23/2024 12:43 AM EDT RESPIRATORY PATHOGEN PANEL, PCR STAT 06/23/2024 12:43 AM EDT HEPATIC FUNCTION PANEL STAT 06/23/2024 12:43 AM EDT BASIC METABOLIC PANEL STAT 06/23/2024 12:43 AM EDT CBC STAT 06/23/2024 12:43 AM EDT CBC STAT 06/23/2024 12:43 AM EDT documented in this encounter Results * (ABNORMAL) URINALYSIS, REFLEX TO CULTURE (06/23/2024 2:29 AM EDT) Color, Urine Yellow Light Yellow, Yellow, Dark Yellow 06/23/2024 3:16 AM EDT LAB[facility]AT[facility] Clarity, Urine Clear Clear 06/23/2024 3:16 AM EDT [facility] Glucose, Urine Negative Negative mg/dL 06/23/2024 3:16 AM EDT [facility] Bilirubin, Urine Small(A) Negative 06/23/2024 3:16 AM EDT [facility] Ketone, Urine 40(A) Negative mg/dL 06/23/2024 3:16 AM EDT [facility] Specific [place], Urine 1.021 1.003 - 1.030 06/23/2024 3:16 AM EDT [facility] Blood, Urine Negative Negative 06/23/2024 3:16 AM EDT [facility] pH, Urine 6.0 5.0 - 7.5 Units 06/23/2024 3:16 AM EDT LABORATORY [facility] Protein, Urine Trace(A) Negative mg/dL 06/23/2024 3:16 AM EDT LABORATORY [facility] Urobilinogen, Urine 1.0 0.2, 1.0 mg/dL 06/23/2024 3:16 AM EDT LAB[facility]ATORY [facility] Nitrite, Urine Negative Negative 06/23/2024 3:16 AM EDT [facility] Esterase, Urine Negative Negative 06/23/2024 3:16 AM EDT LAB[facility]ORY [facility] RBC, Urine 0-2 0 - 2 /HPF 06/23/2024 3:16 AM EDT LAB[facility]ORY [facility] WBC, Urine 6-9(A) 0 - 2 /HPF 06/23/2024 3:16 AM EDT LAB[facility]ATORY [facility] Bacteria, Urine >200(A) 0 - 25 /HPF 06/23/2024 3:16 AM EDT LAB[facility] Squamous Epithelial Cells, Urine Many(A) None /HPF 06/23/2024 3:16 AM EDT LAB[facility]ATORY [facility] Culture, Urine 06/23/2024 3:16 AM EDT LABORATORY [facility] Comment:Quantitative urine c ulture to be performed Urine Urine specimen obtained by clean catch procedure / Unknown Non-blood Collection / Unknown 06/23/2024 2:29 AM EDT 06/23/2024 2:36 AM EDT Joe Cruz MD LAB URINE ORDERABLES Performing Organization Address City/State/[facility] Co de Phone Number LABORATORY [address] [address] * URINALYSIS, REFLEX TO CULTURE (CUP ONLY) (06/23/2024 2:29 AM EDT) Urinalysis, Reflex to Culture Specimen Specimen collected and received 06/23/2024 4:01 AM EDT LABORATORY [facility] Urine Urine specimen obtained by clean catch procedure / Unknown Non-blood Collection / Unknown 06/23/2024 2:29 AM EDT 06/23/2024 2:35 AM EDT Joe Cruz MD LAB URINE ORDERABLES LABORATORY [place] [id number] * XR ABDOMEN OBSTRUCT SERIES W CHEST 1 VIEW (06/23/2024 12:58 AM EDT) Anatomical Region Laterality Modality Abdomen, Pelvis Digital Radiogra phy 06/23/2024 12:4 9 AM EDT Impressions 06/23/2024 2:25 AM EDT IMPRESSION: No acute findings. THIS DOCUMENT HAS BEEN ELECTRONICALLY SIGNED BY YASSINE MARTIN MD Narrative 06/23/2024 2:25 AM EDT PROCEDURE INFORMATION: Exam: XR Complete Acute Abdomen Series Including Chest Exam date and time: 06/23/2024 12:49 AM Age: 59 years old Clinical indication: Other: N/v/d x 3 days; Weakness; Additional info: Vomiting and diarrhea TECHNIQUE: Imaging protocol: Radiologic exam. Complete acute abdomen series, including 2 or more views of the abdomen and a single view chest. COMPARISON: DX (CHEST, CHEST PA) 05/03/2022 10:12 AM FINDINGS: Lungs: Normal. No consolidation. Pleural spaces: Normal. No pleural effusions. No pneumothorax. Heart/Mediastinum: Normal. No cardiomegaly. Gastrointestinal tract: Normal. No bowel dilation. Intraperitoneal space: Normal. No free air. Bones/joints: No acute fracture. Fusion changes at the lower cervical and lumbar spine. Soft tissues: Normal. Procedure Note Yassine Martin MD - 06/23/2024 PROCEDURE INFORMATION: Exam: XR Complete Acute Abdomen Series Including Chest Exam date and time: 06/23/2024 12:49 AM Age: 59 years old Clinical indication: Other: N/v/d x 3 days; Weakness; Additional info:Vomiting and diarrhea TECHNIQUE: Imaging protocol: Radiologic exam. Complete acute abdomen series,including 2 or more views of the abdomen and a single view chest. COMPARISON: DX (CHEST, CHEST PA) 05/03/2022 10:12 AM FINDINGS: Lungs: Normal. No consolidation. Pleural spaces: Normal. No pleural effusions. No pneumothorax. Heart/Mediastinum: Normal. No cardiomegaly. Gastrointestinal tract: Normal. No bowel dilation. Intraperitoneal space: Normal. No free air. Bones/joints: No acute fracture. Fusion changes at the lower cervical and lumbar spine. Soft tissues: Normal. IMPRESSION IMPRESSION: No acute findings. THIS DOCUMENT HAS BEEN ELECTRONICALLY SIGNED BY YASSINE MARTIN MD Joe Cruz MD RADIOLOGY ([facility]) * DIFFERENTIAL, AUTOMATED (06/23/2024 12:43 AM EDT) WBC 5.33 4.00 - 10.80 K/uL 06/23/2024 12:52 AM EDT LABORATORY [facility] Neutrophils % 47.8 40.0 - 75.0 % 06/23/2024 12:52 AM EDT LAB[facility]ATORY [facility] Lymphocytes % 40.9 18.0 - 42.0 % 06/23/2024 12:52 AM EDT LABORATORY [facility] Monocytes % 9.8 1.0 - 11.0 % 06/23/2024 12:52 AM EDT LABORATORY [facility] Eosinophils % 0.9 0.0 - 6.0 % 06/23/2024 12:52 AM EDT LABORATORY [facility] Basophils % 0.6 0.0 - 2.0 % 06/23/2024 12:52 AM EDT LABORATORY [facility] Immature Granulocytes % 0.0 0.0 - 2.0 % 06/23/2024 12:52 AM EDT LABORATORY [facility] Absolute Neutrophils 2.55 1.80 - 7.70 K/uL 06/23/2024 12:52 AM EDT LABORATORY [facility] Absolute Lymphocytes 2.18 1.00 - 4.80 K/ul 06/23/2024 12:52 AM EDT LAB[facility]ATORY [facility] Absolute Monocytes 0.52 0.00 - 1.10 K/uL 06/23/2024 12:52 AM EDT LAB[facility]ATORY [facility] Absolute Eosinophils 0.05 0.00 - 0.70 K/uL 06/23/2024 12:52 AM EDT LAB[facility]ATORY [facility] Absolute Basophils 0.03 0.00 - 0.20 K/uL 06/23/2024 12:52 AM EDT LAB[facility]ATORY [facility] Absolute Immature Granulocytes 0.00 0.00 - 0.20 K/uL 06/23/2024 12:52 AM EDT LABORATORY [facility] Blood Venous blood specimen / Unknown Venipuncture / Unknown 06/23/2024 12:43 AM EDT 06/23/2024 12:49 AM EDT Joe Cruz MD LAB BLOOD ORDERABLES LABORATORY [facility] [address] [place] [address] * CBC (06/23/2024 12:43 AM EDT) Pathologist [facility] WBC 5.33 4.00 - 10.80 K/uL 06/23/2024 12:52 AM EDT LABORATORY [facility] RBC 4.67 3.85 - 5.15 M/uL 06/23/2024 12:52 AM EDT LABORATORY [facility] HGB 14.3 12.0 - 15.3 g/dL 06/23/2024 12:52 AM EDT LABORATORY [facility] HCT 41.4 36.0 - 45.2 % 06/23/2024 12:52 AM EDT LABORATORY [facility] MCV 88.7 81.5 - 97.5 fL 06/23/2024 12:52 AM EDT LABORATORY [facility] MCH 30.6 27.0 - 34.0 pg 06/23/2024 12:52 AM EDT LABORATORY [facility] MCHC 34.5 32.0 - 36.0 g/dL 06/23/2024 12:52 AM EDT LABORATORY [facility] RDW 13.4 11.5 - 15.5 % 06/23/2024 12:52 AM EDT LABORATORY [facility] PLT 279 140 - 400 K/uL 06/23/2024 12:52 AM EDT LABORATORY [facility] MPV 9.5 6.6 - 11.1 fL 06/23/2024 12:52 AM EDT LABORATORY [facility] nRBCs 0 <=0 /100 WBCs 06/23/2024 12:52 AM EDT LABORATORY [facility] Blood Venous blood specimen / Unknown Venipuncture / Unknown 06/23/2024 12:43 AM EDT 06/23/2024 12:49 AM EDT Joe Cruz MD LAB BLOOD ORDERABLES Performing Organization Address [facility] Co de Phone Number LABORATORY [facility] [address] [place] [address] * HEPATIC FUNCTION PANEL (06/23/2024 12:43 AM EDT) Albumin 4.1 3.8 - 5.0 g/dL 06/23/2024 1:14 AM EDT [facility] AST 22 10 - 35 U/L 06/23/2024 1:14 AM EDT [facility] Alkaline Phosphatase 126 35 - 130 U/L 06/23/2024 1:14 AM EDT [facility] ALT 10 10 - 35 U/L 06/23/2024 1:14 AM EDT [facility] Bilirubin, Total 0.7 <=1.2 mg/dL 06/23/2024 1:14 AM EDT [facility] Bilirubin, Direct <0.2 0.0 - 0.3 mg/dL 06/23/2024 1:14 AM EDT [facility] Protein 7.1 6.0 - 8.3 g/dL 06/23/2024 1:14 AM EDT [facility] Blood Venous blood specimen / Unknown Venipuncture / Unknown 06/23/2024 12:43 AM EDT 06/23/2024 12:49 AM EDT Joe Cruz MD LAB BLOOD ORDERABLES Performing Organization Address [facility] Co de Phone Number LABORATORY [facility] [address] [place] [address] * (ABNORMAL) BASIC METABOLIC PANEL (06/23/2024 12:43 AM EDT) BUN 10 6 - 20 mg/dL 06/23/2024 1:14 AM EDT [facility] Creatinine 0.8 0.5 - 1.0 mg/dL 06/23/2024 1:14 AM EDT [facility] Estimated Glomerular Filtration Rate 87 >=60 mL/min 06/23/2024 1:14 AM EDT [facility] Comment:eGFR is calculated b ased on the CKD-EPI 2020 equation. Sodium 135 135 - 146 mmol/L 06/23/2024 1:14 AM EDT LABORATORY [facility] Potassium 3.3(L) 3.5 - 5.1 mmol/L 06/23/2024 1:14 AM EDT LABORATORY [facility] Chloride 100 98 - 107 mmol/L 06/23/2024 1:14 AM EDT LABORATORY [facility] CO2 21(L) 22 - 32 mmol/L 06/23/2024 1:14 AM EDT LABORATORY [facility] Anion Gap 14 7 - 15 mmol/L 06/23/2024 1:14 AM EDT LABORATORY [facility] Glucose 109 70 - 120 mg/dL 06/23/2024 1:14 AM EDT LABORATORY [facility] Calcium 9.5 8.4 - 10.2 mg/dL 06/23/2024 1:14 AM EDT LABORATORY [facility] Blood Venous blood specimen / Unknown Venipuncture / Unknown 06/23/2024 12:43 AM EDT 06/23/2024 12:49 AM EDT Joe Cruz MD LAB BLOOD ORDERABLES LABORATORY [address] [address] * RESPIRATORY PATHOGEN PANEL, PCR (06/23/2024 12:43 AM EDT) Adenovirus by PCR Negative Negative 024 1:57 AM EDT LABORATORY [facility] Coronavirus 229E by PCR Negative Negative 06/23/2024 1:57 AM EDT LABORATORY [facility] Coronavirus HKU1 by PCR Negative Negative 06/23/2024 1:57 AM EDT LABORATORY [facility] Coronavirus NL63 by PCR Negative Negative 06/23/2024 1:57 AM EDT LABORATORY [facility] Coronavirus OC43 by PCR Negative Negative 06/23/2024 1:57 AM EDT LABORATORY [facility] Coronavirus SARS-CoV-2 by PCR Negative Negative 06/23/2024 1:57 AM EDT LABORATORY [facility] Human Metapneumovirus by PCR Negative Negative 06/23/2024 1:57 AM EDT LABORATORY [facility] Rhinovirus/Enterovi shaun by PCR Negative Negative 06/23/2024 1:57 AM EDT LABORATORY [facility] Influenza A Virus by PCR Negative Negative 06/23/2024 1:57 AM EDT LABORATORY [facility] Influenza B Virus by PCR Negative Negative 06/23/2024 1:57 AM EDT LABORATORY [facility] Parainfluenza Virus 1 by PCR Negative Negative 06/23/2024 1:57 AM EDT LABORATORY [facility] Parainfluenza Virus 2 by PCR Negative Negative 06/23/2024 1:57 AM EDT LABORATORY [facility] Parainfluenza Virus 3 by PCR Negative Negative 06/23/2024 1:57 AM EDT LAB[facility]ATORY [facility] Parainfluenza Virus 4 by PCR Negative Negative 06/23/2024 1:57 AM EDT LAB[facility] Respiratory Syncytial Virus by PCR Negative Negative 06/23/2024 1:57 AM EDT LAB[facility] Bordetella pertussis by PCR Negative Negative 06/23/2024 1:57 AM EDT LAB[facility] Chlamydia pneumoniae by PCR Negative Negative 06/23/2024 1:57 AM EDT LAB[facility] Mycoplasma pneumoniae by PCR Negative Negative 06/23/2024 1:57 AM EDT LAB[facility] Bordetella parapertussis by PCR Negative Negative 06/23/2024 1:57 AM EDT LAB[facility] Comment: The primers that detect Rhinovirus may cross react with some Enterorviruses. The validation of bronchial specimens, tracheal aspirates, and throats for this assay was developed and performance characteristics determined by [employer]. The validation of alternate specimen types has not been cleared or approved by the U.S. Food and Drug Administration (FDA). It has been determined that such clearance or approval is not necessary. Upper Respiratory Mid-turbinate nasal swab / Unknown Non-blood Collection / Unknown 06/23/2024 12:43 AM EDT 06/23/2024 12:49 AM EDT Joe Cruz MD LAB MICRO - GENERAL ORDERABLES LAB[facility] [address] [place] [address] documented in this encounter Visit Diagnoses Diagnosis Gastroenteritis- Primary Other and unspecified noninfectious gastroenteritis and colitis documented in this encounter Administered Medications Inactive Administered Medications - up to 3 most recent administrations Medication Order MAR Action Action Date Dose Rate Site NSS 0.9% 1,000 mL bolus infusion Peripheral IV, at 1,000 mL/hr Administer over 60 Minutes, Administer entire volume within 60 minutes or less., ONCE, 1 dose, On Wed06/23/24 at 0115 New Bag 06/23/2024 1:15 AM EDT 1,000 mL 1000 mL/hr ondansetron (Zofran) inj 4 mg 4 mg, IV Push, ONCE, On Wed06/23/24 at 0115, For 1 dose Given 06/23/2024 12:44 AM EDT 4 mg ondansetron (Zofran) inj 4 mg 4 mg, IV Push, ONCE, On Wed06/23/24 at 0300, For 1 dose Given 06/23/2024 2:32 AM EDT 4 mg prochlorperazine (Compazine) inj 10 mg 10 mg, Intravenous, ONCE, On Wed06/23/24 at 0345, For 1 dose Given 06/23/2024 3:15 AM EDT 10 mg promethazine (Phenergan) tab 25 mg 25 mg, Oral, ONCE, On Wed06/23/24 at 0415, For 1 dose, To take at home Given 06/23/2024 3:46 AM EDT 25 mg documented in this encounter Active and Recently Administered Medications Times are shown in EDT. Scheduled Medication Order 06/21/2024 06/22/2024 06/23/2024 NSS 0.9% 1,000 mL bolus infusion (COMPLETED) Peripheral IV, at 1,000 mL/hr Administer over 60 Minutes, Administer entire volume within 60 minutes or less., ONCE, 1 dose, On Wed06/23/24 at 0115 0115 (New Bag - Prov ider: Con Hudson RN)0233 (Stopped - Provider: Con Hudson RN) ondansetron (Zofran) inj 4 mg (COMPLETED) 4 mg, IV Push, ONCE, On Wed06/23/24 at 0115, For 1 dose 0044 (Given - Provid er: Con Hudson RN) ondansetron (Zofran) inj 4 mg (COMPLETED) 4 mg, IV Push, ONCE, On Wed06/23/24 at 0300, For 1 dose 0232 (Given - Provid er: Con Hudson RN) prochlorperazine (Compazine) inj 10 mg (COMPLETED) 10 mg, Intravenous, ONCE, On Wed06/23/24 at 0345, For 1 dose 0315 (Given - Provid er: Con Hudson RN) promethazine (Phenergan) tab 25 mg (COMPLETED) 25 mg, Oral, ONCE, On Wed06/23/24 at 0415, For 1 dose, To take at home 0346 (Given - Provid er: Gabriel Huang RN) documented in this encounter Additional Health Concerns Infection Onset Date Last Indicated Resolved Time Respiratory Rule-Out 06/23/2024 06/23/2024 024 1:57 AM EDT COVID-19 Rule-Out 06/23/2024 06/23/2024 06/23/2024 1:57 AM EDT documented as of this encounter Care Teams Prom Burn Off Operator Relationship Specialty Start Date End Date Theresa Saucedo CRNP [address] [id number] PCP - General Nurse Practitioner 11/04/22 documented as of this encounter
--- OUTSIDE RECORDS SUMMARY | 2024-11-06 11:46 | External Medical Summary ---
Author Name Unknown Address Unknown Organization K1F:[facility] - [address] [place] [address] Laboratory Report Ordering Provider Test Date Status BA GARAYMAGO 06/23/2024 00:43:43 Final Observation Date Value Abnormality Reference (Units ) Status Albumin 06/23/2024 00:43:43 4.1 3.8-5.0 (g/dL) Final AST (Aspartate aminotransferase) 06/23/2024 00:43:43 22 10-35 (U/L) Final Alk Phos 06/23/2024 00:43:43 126 35-130 (U/L) Final ALT (Alanine aminotransferase) 06/23/2024 00:43:43 10 10-35 (U/L) Final Bilirubin, Total 06/23/2024 00:43:43 0.7 <=1.2 (mg/dL) Final Bilirubin, Direct 06/23/2024 00:43:43 <0.2 0.0-0.3 (mg/dL) Final Protein 06/23/2024 00:43:43 7.1 6.0-8.3 (g/dL) Final Performing Location LAB[facility]ATORY [facility] - [address] [place] [address]
--- OUTSIDE RECORDS SUMMARY | 2024-11-06 11:46 | External Medical Summary ---
Author Name Unknown Address Unknown Organization K1F:LABORATORY [facility] - [address] [place] [address] [place] [address] Laboratory Report Ordering Provider Test Date Status SWAPNA GARAY 06/23/2024 00:43:28 Final ADMITTED patient Observation Date Value Abnormality Reference (Units ) Status Adenovirus DNA [Presence] in Nasopharynx by [employer] with non-probe detection 06/23/2024 00:43:28 Negative Negative Final Human coronavirus 229E RNA [Presence] in Nasopharynx by BONIFACIO with non-probe detection 06/23/2024 00:43:28 Negative Negative Final Human coronavirus HKU1 RNA [Presence] in Nasopharynx by BONIFACIO with non-probe detection 06/23/2024 00:43:28 Negative Negative Final Human coronavirus NL63 RNA [Presence] in Nasopharynx by BONIFACIO with non-probe detection 06/23/2024 00:43:28 Negative Negative Final Human coronavirus OC43 RNA [Presence] in Nasopharynx by BONIFACIO with non-probe detection 06/23/2024 00:43:28 Negative Negative Final SARS-CoV-2 (COVID-19) RNA [Presence] in Nasopharynx by BONIFACIO with non-probe detection 06/23/2024 00:43:28 Negative Negative Final Human metapneumovirus RNA [Presence] in Nasopharynx by BONIFACIO with non-probe detection 06/23/2024 00:43:28 Negative Negative Final Rhinovirus+Enterovirus RNA [Presence] in Nasopharynx by BONIFACIO with non-probe detection 06/23/2024 00:43:28 Negative Negative Final Influenza virus A RNA [Presence] in Nasopharynx by BONIFACIO with non-probe detection 06/23/2024 00:43:28 Negative Negative Final Influenza virus B RNA [Presence] in Nasopharynx by BONIFACIO with non-probe detection 06/23/2024 00:43:28 Negative Negative Final Parainfluenza virus 1 RNA [Presence] in Nasopharynx by BONIFACIO with non-probe detection 06/23/2024 00:43:28 Negative Negative Final Parainfluenza virus 2 RNA [Presence] in Nasopharynx by BONIFACIO with non-probe detection 06/23/2024 00:43:28 Negative Negative Final Parainfluenza virus 3 RNA [Presence] in Nasopharynx by BONIFACIO with non-probe detection 06/23/2024 00:43:28 Negative Negative Final Parainfluenza virus 4 RNA [Presence] in Nasopharynx by BONIFACIO with non-probe detection 06/23/2024 00:43:28 Negative Negative Final Respiratory syncytial virus RNA [Presence] in Nasopharynx by BONIFACIO with non-probe detection 06/23/2024 00:43:28 Negative Negative Final Bordetella pertussis.pertussis toxin promoter region [Presence] in Nasopharynx by BONIFACIO with non-probe detection 06/23/2024 00:43:28 Negative Negative Final Chlamydophila pneumoniae DNA [Presence] in Nasopharynx by BONIFACIO with non-probe detection 06/23/2024 00:43:28 Negative Negative Final Mycoplasma pneumoniae DNA [Presence] in Nasopharynx by BONIFACIO with non-probe detection 06/23/2024 00:43:28 Negative Negative Final Bordetella parapertussis [id number] DNA [Presence] in Nasopharynx by BONIFACIO with non-probe detection 06/23/2024 00:43:28 Negative Negative Final
The primers that detect Rhinovirus may cross react with some Enterorviruses. The validation of bronchial specimens, tracheal aspirates, and throats for this assay was developed and performance characteristics determined by [employer]. The validation of alternate specimen types has not been cleared or approved by the U.S. Food and Drug Administration (FDA). It has been determined that such clearance or approval is not necessary. [address] [place] [facility] [address]
--- OUTSIDE RECORDS SUMMARY | 2024-11-06 11:46 | External Medical Summary ---
Author Name Unknown Address Unknown Organization K1F:[facility]ATORY [facility] - [address] [facility] [place] [address] Laboratory Report Ordering Provider Test Date Status SWAPNA GARAY 06/23/2024 02:29:31 Final Observation Date Value Abnormality Reference (Units ) Status Color of Urine by Auto 06/23/2024 02:29:31 Yellow Light Yellow, Yellow, Dark Yellow Final Clarity, Urine 06/23/2024 02:29:31 Clear Clear Final Glucose [Mass/volume] in Urine by Automated test strip 06/23/2024 02:29:31 Negative Negative (mg/dL) Final Bilirubin.total [Presence] in Urine by Automated test strip 06/23/2024 02:29:31 Small Abnormal Negative Final Ketones [Mass/volume] in Urine by Automated test strip 06/23/2024 02:29:31 40 Abnormal Negative (mg/dL) Final Specific gravity, Urine 06/23/2024 02:29:31 1.021 1.003-1.030 Final Hemoglobin [Presence] in Urine by Automated test strip 06/23/2024 02:29:31 Negative Negative Final pH, Urine 06/23/2024 02:29:31 6.0 5.0-7.5 (Units) Final Protein [Mass/volume] in Urine by Automated test strip 06/23/2024 02:29:31 Trace Abnormal Negative (mg/dL) Final Urobilinogen [Mass/volume] in Urine by Automated test strip 06/23/2024 02:29:31 1.0 0.2, 1.0 (mg/dL) Final Nitrite [Presence] in Urine by Automated test strip 06/23/2024 02:29:31 Negative Negative Final Leukocyte esterase [Presence] in Urine by Automated test strip 06/23/2024 02:29:31 Negative Negative Final RBC, Urine 06/23/2024 02:29:31 0-2 0-2 (/HPF) Final WBC, Urine 06/23/2024 02:29:31 6-9 Abnormal 0-2 (/HPF) Final Bacteria [#/area] in Urine sediment by Microscopy high power field 06/23/2024 02:29:31 >200 Abnormal 0-25 (/HPF) Final Epithelial cells.squamous [#/area] in Urine sediment by Microscopy high power field 06/23/2024 02:29:31 Many Abnormal None (/HPF) Final CULTURE, URINE - [facility] 06/23/2024 02:29:31 Final Quantitative urine culture t o be performed Performing Location LABORATORY [facility] - [address] [place], [place] [address]. [place] [address]
--- OUTSIDE RECORDS SUMMARY | 2024-11-06 11:46 | External Medical Summary | Summary of Care ---
Author Name Unknown Organization [facility] Address [address] [place] [address] Phone [phone] Care Team Providers Care Purifying Plant Operator Name Role Phone Theresa Saucedo Primary Care Provider [phone]- [phone] Reason for Visit * Reason Comments eRx-Medication Refill Encounter Details Date Type Department Care Team (Late st Contact Info) Description 05/16/2024 Refill Pharmacy, [place] [address] [place] [address] Theresa Saucedo CRNP [address] [place] [address] Fibromyalgia Allergies Active Allergy Reactions Criticality Noted Date Comments Morphine Hives 02/06/2016 hives documented as of this encounter (statuses as of 05/16/2024) Medications Medication Sig Dispensed Refills Start Date End Date Status saline ([facility] SALINE NOSE SPRAY) 0.65 % nasal spray Administer 1 Story into nostril as needed for Congestion. 30 mL 12 7 Active Additional Information Patient not taking.Reported on 02/02/2023 fluticasone (FLONASE) 50 MCG/ACT nasal spray SPRAY 2 SPRAYS INTO EACH NOSTRIL EVERY DAY 48 mL 2 0 Active Additional Information Patient not taking.Reported on 02/02/2023 Albuterol Sulfate HFA 108 (90 Base) MCG/ACT Inhalation Aerosol SolutionIndications :Acute bronchospasm Inhale 2 Puffs by mouth every 4 hours as needed for Cough, Shortness of Breath or Wheezing. 18 g 3 Active Additional Information Patient not taking.Reported on 09/24/2023 traZODone HCl 100 MG Oral Tablet (Desyrel)Indication s:Insomnia, unspecified type Take 1.5 Tablets by mouth at bedtime. TAKE ONE TABLET BY MOUTH AT BEDTIME 135 Tablet 2 3 Active Levothyroxine Sodium 25 MCG Oral Tablet (Levoxyl)Indication s:Subclinical hypothyroidism TAKE ONE TABLET BY MOUTH IN THE MORNING at least 30 mins prior to breakfast or other meds 90 Tablet 2 3 Active DULoxetine HCl 60 MG Oral Capsule Delayed Release Particles (Cymbalta)Indicatio ns:Fibromyalgia Take 1 Capsule by mouth in the morning. 90 Capsule 3 3 Active DULoxetine HCl 30 MG Oral Capsule Delayed Release Particles (Cymbalta) Take 1 Capsule by mouth in the morning. 90 Capsule 3 3 Active busPIRone HCl 10 MG Oral Tablet (Buspar)Indications :Grief reaction Take 1 Tablet by mouth in the morning and 1 Tablet before bedtime. 180 Tablet 2 3 Active Vitamin D3 50 MCG (2000 UT) Oral Capsule (Cholecalciferol)In dications:Vitamin D insufficiency Take 1 Capsule by mouth in the morning. 90 Capsule 1 4 Active Pregabalin 150 MG Oral Capsule (Lyrica)Indications :Fibromyalgia Take 1 Capsule by mouth in the morning and 1 Capsule before bedtime. 60 Capsule 4 Active Pregabalin 150 MG Oral Capsule (Lyrica)Indications :Fibromyalgia Take 1 Capsule by mouth in the morning and 1 Capsule before bedtime. 60 Capsule 4 05/16/20 24 Discontinued documented as of this encounter (statuses as of 05/16/2024) Active Problems Problem Noted Date Diagnosed Date Other specified hypothyroidism 07/04/2020 DDD (degenerative disc disease), lumbar 05/23/20 19 MEDICATION USE AGREEMENT 08/04/2018 Overview: Working on weaning off tramadol. (referred to Pain MTM) History of cervical cancer 07/20/2018 Fibromyalgia 09/29/2017 Chronic seasonal allergic rhinitis 09/29/2017 Generalized osteoarthritis of multiple sites documented as of this encounter (statuses as of 05/16/2024) Immunizations Name Administration Dates Next Due Seasonal [...] encounter Miscellaneous Notes * Telephone Encounter - Jabari Hoover MD - 05/16/2024 5:43 PM EDTSigned Prescriptions: Disp Refills Pregabalin 150 MG Oral Capsule (Lyrica) 60 Cap*0 Sig: Take 1 Capsule by mouth in the morning and 1 Capsule before bedtime. Authorizing Provider: JABARI HOOVER * Telephone Encounter - Padmini Russ RPh - 05/16/2024 2:47 PM EDTPending Prescriptions: Disp Refills Pregabalin 150 MG Oral Capsule [Pharmacy M*60 Cap*0 Sig: Take 1Capsule by mouth in the morning and 1 Capsule before bedtime. documented in this encounter Plan of Treatment [...] exists COVID-19 Vaccine ( - 2022- season) 2023 Influenza Vaccine (FLU shot) (#1) [...] Diagnoses Diagnosis Fibromyalgia Mylagia and myositis, unspecified documented in this encounter Care Teams Purifying Plant Operator Relationship Specialty Start Date End Date Theresa Saucedo CRNP [address] [id number] PCP - General Nurse Practitioner 11/04/22 documented as of this encounter
--- OUTSIDE RECORDS SUMMARY | 2024-11-06 11:46 | External Medical Summary ---
Author Name Unknown Address Unknown Organization K1F:LABORATORY [facility] - [address] [place] [address] Laboratory Report Ordering Provider Test Date Status SWAPNA GARAY 06/23/2024 00:43:43 Final Observation Date Value Abnormality Reference (Units ) Status WBC, Total 06/23/2024 00:43:43 5.33 4.00-10.80 (K/uL) Final RBC 06/23/2024 00:43:43 4.67 3.85-5.15 (M/uL) Final Hemoglobin 06/23/2024 00:43:43 14.3 12.0-15.3 (g/dL) Final HCT 06/23/2024 00:43:43 41.4 36.0-45.2 (%) Final MCV 06/23/2024 00:43:43 88.7 81.5-97.5 (fL) Final MCH 06/23/2024 00:43:43 30.6 27.0-34.0 (pg) Final MCHC 06/23/2024 00:43:43 34.5 32.0-36.0 (g/dL) Final RDW 06/23/2024 00:43:43 13.4 11.5-15.5 (%) Final Platelets 06/23/2024 00:43:43 279 140-400 (K/uL) Final MPV 06/23/2024 00:43:43 9.5 6.6-11.1 (fL) Final Nucleated erythrocytes/100 leukocytes [Ratio] in Blood by Automated count 06/23/2024 00:43:43 0 <=0 (/100 WBCs) Final Performing Location LAB[facility]ATORY [facility] - [address] [place] [address]
--- OUTSIDE RECORDS SUMMARY | 2024-11-06 11:46 | External Medical Summary ---
Author Name Unknown Address Unknown Organization K1F:LABORATORY [facility] - [address] [facility]. [place] [address] Laboratory Report Ordering Provider Test Date Status SWAPNA GARAY 06/23/2024 00:43:43 Final Observation Date Value Abnormality Reference (Units ) Status SYNC LEUKOCYTES IN BLOOD BY AUTOMATED COUNT 06/23/2024 00:43:43 5.33 4.00-10.80 (K/uL) Final Segs 06/23/2024 00:43:43 47.8 40.0-75.0 (%) Final Lymphs % 06/23/2024 00:43:43 40.9 18.0-42.0 (%) Final Monos 06/23/2024 00:43:43 9.8 1.0-11.0 (%) Final Eosinophils 06/23/2024 00:43:43 0.9 0.0-6.0 (%) Final Basos 06/23/2024 00:43:43 0.6 0.0-2.0 (%) Final Immature Granulocyte, Percent 06/23/2024 00:43:43 0.0 0.0-2.0 (%) Final Absolute Segs 06/23/2024 00:43:43 2.55 1.80-7.70 (K/uL) Final Lymphs, absolute 06/23/2024 00:43:43 2.18 1.00-4.80 (K/ul) Final Monos, Abs 06/23/2024 00:43:43 0.52 0.00-1.10 (K/uL) Final Eos, Abs 06/23/2024 00:43:43 0.05 0.00-0.70 (K/uL) Final Basos, Abs 06/23/2024 00:43:43 0.03 0.00-0.20 (K/uL) Final Immature Granulocytes, Number 06/23/2024 00:43:43 0.00 0.00-0.20 (K/uL) Final Performing Location [facility] - [address] [facility] [place] [address]
--- OUTSIDE RECORDS SUMMARY | 2024-11-06 11:46 | External Medical Summary | Summary of Care ---
Author Name Unknown Organization [facility] Address [address] [place] [address] Phone [phone] Care Team Providers Care Pan Cleaner Name Role Phone Theresa Saucedo Primary Care Provider [phone] Reason for Referral * Medication Prior Authorization - Closed Specialty Diagnoses / Procedures Referred By Contromie t Referred To Contact Diagnoses Fibromyalgia Niall Slaughter MD [address] [facility] [id number] Referral ID Status Reason Start Date Expiration Date Visits Re quested Visits Authorized [id number] Closed 999 999 Reason for Visit * Reason Comments Acute Discuss med increase Encounter Details Date Type Department Care Team (Late st Contact Info) Description 08/03/2024 8:00 AM EDT [address] [place] [address] Niall Slaughter MD [address] [place] [id number] NAUN (generalized anxiety disorder)*; Fibromyalgia; Subclinical hypothyroidism; Insomnia, unspecified type Allergies Active Allergy Reactions [...] other meds 90 Tablet 3 08/03/2024 Active traZODone HCl 100 MG Oral Tablet (Desyrel)Indication s:Insomnia, unspecified type Take 1.5 Tablets by mouth at bedtime. TAKE ONE TABLET BY MOUTH AT BEDTIME 135 Tablet 3 08/03/2024 Active Pregabalin 150 MG Oral Capsule (Lyrica)Indications :Fibromyalgia Take 1 Capsule by mouth in the morning and 1 Capsule before bedtime. 60 Capsule 5 08/03/2024 Active buPROPion HCl ER (XL) 150 MG Oral Tablet Extended Release 24 Hour (Wellbutrin XL) Take 1 Tablet by mouth in the morning. 90 Tablet 3 08/03/2024 Active saline ([facility] SALINE NOSE SPRAY) 0.65 % nasal spray Administer 1 [place] into nostril as needed for Congestion. 30 mL 12 10/22/2017 4 Discontinue d(Discharge d) fluticasone (FLONASE) 50 MCG/ACT nasal spray SPRAY 2 SPRAYS INTO EACH NOSTRIL EVERY DAY 48 mL 2 04/22/2020 4 Discontinue d(Discharge d) Albuterol Sulfate HFA 108 (90 Base) MCG/ACT Inhalation Aerosol SolutionIndications :Acute bronchospasm Inhale 2 Puffs by mouth every 4 hours as needed for Cough, Shortness of Breath or Wheezing. 18 g 01/28/2023 4 Discontinue d(Discharge d) traZODone HCl 100 MG Oral Tablet (Desyrel)Indication s:Insomnia, unspecified type Take 1.5 Tablets by mouth at bedtime. TAKE ONE TABLET BY MOUTH AT BEDTIME 135 Tablet 2 09/24/2023 4 Discontinue d(Refill) Levothyroxine Sodium 25 MCG Oral Tablet (Levoxyl)Indication s:Subclinical hypothyroidism TAKE ONE TABLET BY MOUTH IN THE MORNING at least 30 mins prior to breakfast or other meds 90 Tablet 2 09/24/2023 4 Discontinue d(Refill) DULoxetine HCl 60 MG Oral Capsule Delayed Release Particles (Cymbalta)Indicatio ns:Fibromyalgia Take 1 Capsule by mouth in the morning. 90 Capsule 3 09/24/2023 4 Discontinue d(Refill) DULoxetine HCl 30 MG Oral Capsule Delayed Release Particles (Cymbalta) Take 1 Capsule by mouth in the morning. 90 Capsule 3 09/24/2023 4 Discontinue d(Refill) busPIRone HCl 10 MG Oral Tablet (Buspar)Indications :Grief reaction Take 1 Tablet by mouth in the morning and 1 Tablet before bedtime. 180 Tablet 2 09/24/2023 4 Discontinue d(Discharge d) Vitamin D3 50 MCG (1999 UT) Oral Capsule (Cholecalciferol)In dications:Vitamin D insufficiency Take 1 Capsule by mouth in the morning. 90 Capsule 1 01/28/2024 4 Discontinue d(Discharge d) Pregabalin 150 MG Oral Capsule (Lyrica)Indications :Fibromyalgia Take 1 Capsule by mouth in the morning and 1 Capsule before bedtime. 60 Capsule 05/16/2024 4 Discontinue d(Refill) Promethazine HCl 25 MG Oral Tablet (Phenergan) Take 1 Tablet by mouth every 6 hours as needed for Nausea for up to 20 doses. 20 Tablet 06/23/2024 4 Discontinue d(Medicatio n List Clean Up) Potassium Chloride ER 20 MEQ Oral Tablet Extended Release Take 1 Tablet by mouth in the morning for 7 days. 7 Tablet 06/23/2024 4 Discontinue d(Discharge d) documented as of this encounter (statuses as [...] also discussed Maliha Rueda and her book [place] [employer]. Subclinical hypothyroidism 07/04/2020 Last [...] Sign Reading Time Taken Comments Blood Pressure 134/91 08/03/2024 8:12 AM EDT Pulse 82 08/03/2024 8:12 AM EDT Temperature 36.6 C (97.9 F) 08/03/2024 8:12 AM ED T Respiratory Rate 16 08/03/2024 8:12 AM EDT Oxygen Saturation 96% 08/03/2024 8:12 AM EDT Inhaled Oxygen Concentration - - Weight 70.6 kg (155 lb 11.2 oz) 08/03/2024 8:12 AM EDT Height - - Body Mass Index 28.48 01/04/2024 6:57 AM EST documented in this encounter Progress Notes * Niall Slaughter MD - 08/03/2024 8:24 AM EDT Subjective Joyce Purcell is a 59 year old female that presents for Acute (Discuss med increase) Daughter 1 year ago after fighting cancer for 3 years. Inlaws had to go to rehab, then [id number] . Lyyawj-ik-kga with dementia has moved in. Hasn't gotten around to grieving daughter really. Back pain better with surgery in January 2024 but fibromyalgia is flaring. Mood: "anxious". States she needs something to help with stress. Talks to people at faith and others. On her feet a lot, no formal exercise. Has lost 45lbs due to stress she thinks, but needed to lose it. Has nevertaken wellbutrin or hydroxyzine. Objective BP 134/91 | Pulse 82 | Temp 36.6 C (97.9 F) (Tympanic) | Resp 16 | Wt 70.6 kg (155 lb 11.2 oz) | SpO2 96% | BMI 28.48 kg/m | BSA 1.76 m Body mass index is 28.48 kg/m. BP Readings from Last 3 Encounters: 08/03/24 134/91 06/23/24 (!) 138/118 01/26/24 114/72 Wt Readings from Last 3 Encounters: 08/03/24 70.6 kg (155 lb 11.2 oz) 06/23/24 74.8 kg (165 lb) 01/26/24 75.4 kg (166 lb 3.2 oz) Physical Exam Constitutional: Appearance: Normal appearance. HENT: Head: Normocephalic and atraumatic. Eyes: Extraocular Movements: Extraocular movements intact. Conjunctiva/sclera: Conjunctivae normal. Pupils: Pupils are equal, round, and reactive to light. Skin: Findings: No rash. Neurological: General: No focal deficit present. Mental Status: She is alert and oriented to person, place, and time. Psychiatric: Comments: Mood "anxious", affect appropriate, no SI, no hallucinations, good judgment and insight Assessment and plan: Problem List Items Addressed This Visit Fibromyalgia Fibromyalgia pain is increased. She reports that she ran out of her 30 mg of Cymbalta and had only been taking 60 mg so that could be a part of the increased pain along with her stress. We will refill her normal Cymbalta and make changes to anxiety medication as mentioned elsewhere. Refilled Lyricaas well. Relevant Medications DULoxetine HCl 60 MG Oral Capsule Delayed Release Particles (Cymbalta) Pregabalin 150 MG Oral Capsule (Lyrica) Subclinical hypothyroidism Last TSH in January was normal. Refilled Synthroid. Relevant Medications Levothyroxine Sodium 25 MCG Oral Tablet (Levoxyl) Insomnia Stable, refill trazodone Relevant Medications traZODone HCl 100 MG Oral Tablet (Desyrel) NAUN (generalized anxiety disorder) - Primary Anxiety is uncontrolled. Cymbalta is good for her fibromyalgia so we will keep this medication. I am reluctant to increase buspirone as this is to similar to Cymbalta. We reviewed options and decidedto stop buspirone and replace this with Wellbutrin. This combination should be more effective and safer. Re-evaluate in 6 weeks. We also discussed Maliha Rueda and her book [place] [employer]. Plan DULoxetine HCl 30 MG Oral Capsule Delayed Release Particles (Cymbalta) DULoxetine HCl 60 MG Oral Capsule Delayed Release Particles (Cymbalta) Levothyroxine Sodium 25 MCG Oral Tablet (Levoxyl) traZODone HCl 100 MG Oral Tablet (Desyrel) Pregabalin 150 MG Oral Capsule (Lyrica) buPROPion HCl ER (XL) 150 MG Oral Tablet Extended Release 24 Hour (Wellbutrin XL) Follow up Follow Up: Return in about 6 weeks (around 09/14/2024) for Anxiety. | For: Anxiety | Check-out note:Maliha Rueda [place] [employer] Based on the problems addressed, the amount and complexity of data, and the risk of patient management; the medical decision making for this visit is Moderate Total time today including reviewing chart before the visit, pertinent labs, imaging reports, face to face time, and documentation time was 35 minutes. The above was discussed and understanding was expressed. Niall Slaughter MD documented in this encounter Nursing Notes * Shannan Oropeza, MED ASSIST - 08/03/2024 8:08 AM EDT Chief Complaint Patient presents with Acute Discuss med increase Has a lot of stress, daughter last July, father in March and mother in law just moved in with her. Feels that meds used to work well but not as much anymore. Asking for routine blood work. Patient has been verbally educated on the need or importance of HepB Vaccine, Pneumococcal Vaccine,Shingles Vaccine, and Flu Vaccine and has declined topic(s). documented in this encounter Miscellaneous Notes * Assessment & Plan Note - Niall Slaughter MD - 08/03/2024 8:48 AM EDT Associated Problem(s): NAUN (generalized anxiety disorder) Anxiety is uncontrolled. Cymbalta is good for her fibromyalgia so we will keep this medication. I am reluctant to increase buspirone as this is to similar to Cymbalta. We reviewed options and decidedto stop buspirone and replace this with Wellbutrin. This combination should be more effective and safer. Re-evaluate in 6 weeks. We also discussed Maliha Rueda and her book [place] [employer]. * Assessment & Plan Note - Niall Slaughter MD - 08/03/2024 8:47 AM EDT Associated Problem(s): Insomnia Stable, refill trazodone * Assessment & Plan Note - Niall Slaughter MD - 08/03/2024 8:47 AM EDT Associated Problem(s): Subclinical hypothyroidism Last TSH in January was normal. Refilled Synthroid. * Assessment & Plan Note - Niall Slaughter MD - 08/03/2024 8:47 AM EDT Associated Problem(s): Fibromyalgia Fibromyalgia pain is increased. She reports that she ran out of her 30 mg of Cymbalta and had only been taking 60 mg so that could be a part of the increased pain along with her stress. We will refill her normal Cymbalta and make changes to anxiety medication as mentioned elsewhere. Refilled Lyricaas well. documented in this encounter Plan of Treatment [...] Other specified acquired hypothyroidism Insomnia, unspecified type documented in this encounter Care Teams Pan Cleaner Relationship Specialty Start Date End Date Theresa Saucedo CRNP [address] [id number] PCP - General Nurse Practitioner 11/04/22 documented as of this encounter
[2024-11-06 12:01] LABS: Alanine Aminotransferase 46 U/L (7-52); Albumin Globulin Ratio 0.9 (0.9-2); Albumin Level 3.9 gm/dl (3.4-5.0); Alkaline Phosphatase 231 U/L (34-104); Anion Gap 7 (3-11); Aspartate Aminotransferase 56 U/L (13-39); Bilirubin,Total 0.9 mg/dl (0.2-1.0); Blood Urea Nitrogen 8 mg/dl (6-23); Calcium 9.6 mg/dl (8.6-10.3); Carbon Dioxide 28 mmol/L (21-32); Chloride 100 mmol/L (98-107); Globulin 4.4 gm/dl (2.5-4.0); Glucose 106 mg/dl (70-99(Fasting)); Lipase 8 U/L (11-82); Potassium 4.1 mmol/L (3.5-5.1); Sodium 135 mmol/L (136-145); Total Protein 8.3 gm/dl (6.0-8.3)
[2024-11-06 12:02] LABS: Appearance Urine Cloudy (Clear); Bilirubin Urine 1+ (Negative); Blood Urine Negative (Negative); Cast Urine Automated 0-2 /lpf (0-2); Color Urine Dark Yellow; Glucose Urine UA Negative (Negative); Ketones Urine 1+ (Negative); Leukocyte Esterase Urine Trace (Negative); Nitrite Urine Negative (Negative); Protein Urine 1+ (Negative); Specific Gravity Urine 1.025 (1.000-1.030); Urobilinogen Urine Positive (Negative); WBC Urine Automated 0-5 /hpf (0-5); pH Urine 5.5 (4.5-7.5)
[2024-11-06] MEDS: OPTIRAY 320 100ml IV ONE (12:07)
[2024-11-06 12:30] LABS: Mucus Urine Present (None Prsent)
[2024-11-06 12:32] LABS: Bacteria Urine Automated 3+ (None Seen); Hyaline Casts Urine Present /lpf (None Presnt)
--- NOTE | 2024-11-06 12:32 | CT Scan Report ---
CT abd pelvis IV con only CLINICAL HISTORY: RIGHT ABD PAIN X 3 DAYS TECHNIQUE: Helical axial images of the abdomen and pelvis were obtained and displayed. Automated dose lowering techniques and/or adjustment according to patient size were utilized for this exam. This e xam was performed with intravenous contrast. CT DOSE: 1066.48 mGy.cm COMPARISON: None available at the time of this dictation. FINDINGS: Lower chest: Bibasilar atelectasis versus scarring is seen. Liver: A complex fluid collection in the gallbladder fossa may represent intrahepatic abscess. Gallbladder and biliary tree: Thickening of the gallbladder wall is seen with surrounding fluid and c omplex surrounding enhancing fluid collections. Intrahepatic bile duct dilation is seen. Pancreas: Unremarkable, no focal lesions. Spleen: Unremarkable. Adrenals: Unremarkable. Kidneys and ureters: Unremarkable. Bladder: Limited evaluation due to underdistention. Reproductive organs: Patient is status post hysterectomy. Bowel: Unremarkable. Lymph nodes Retroperitoneal: Subcentimeter lymph nodes are noted. Pelvic: Unremarkable. Mesenteric: Subcentimeter lymph nodes are noted. Peritoneum: Complex enhancing pericholecystic fluid collection is seen. There is surrounding fat stra nding. Vessels: Atherosclerotic calcifications are seen. Abdominal wall: Unremarkable. Bones: Posterior fixation hardware spans L4-L5. IMPRESSION: Findings are compatible with acute cholecystitis with concern for surrounding abscess formation in th e liver and peritoneum.. ACT 112: Negative or not required by law. Electronically signed by: Volodymyr Koch M.D. 11/06/2024 12:31 PM
[2024-11-06] MEDS ORDERED: VANCOMYCIN CONSULT ACTIVE PRN (12:57)
[2024-11-06] MEDS: PIPERACILLIN/TAZOBACTAM 4.5 GM/100 ML BAG IV ONE (12:58)
[2024-11-06] MEDS: SODIUM CHLORIDE 0.9% 1,000 ML IV SCH ×2 (13:05→18:47)
--- NOTE | 2024-11-06 13:24 | History & Physical Report ---
Date of Service November 06, 2024 Assessment & Plan (1) Acute cholecystitis: (2) Intra-abdominal abscess: (3) Right sided abdominal pain: Plan: Patient is 59-year-old female with PMH anxiety, depression, fibromyalgia, chronic low back pain, subclinical hypothyroidism, tobacco use, medical marijuana use, presented to ER with complaint of sharp RUQ pain radiates to RLL with nausea and vomiting x 3 days. In ER patient afebrile, vital stable. No leukocytosis. AST: 56, ALT: 46, alk phos: 231, T. bili: 0.9, lipase: WNL CT Abd/pelvis: Findings are compatible with acute cholecystitis with concern for surrounding abscess formation in the liver and peritoneum.. In ER given 1L NSS, Zofran, Zosyn, vancomycin, fentanyl Obtain blood cultures. Obtained after initial antibiotics given in ER Urine culture pending Keep NPO for now IVF Tylenol, oxycodone, Dilaudid prn pain General Surgery consult, ER provider spoke to on-call Dr. Chen who evaluate pt in ER. I spoke with Gen Surg SERGEY, Le Ayala throughout the afternoon to coordinate care for this pt. Suggest gallbladder US and MRCP to determine further course for pt. After further discussion with gen surg team, plan to admit patient. Will allow clear liquid diet and NPO MN for possible pro cedure tomorrow. CBC, CMP in am (4) Anxiety: (5) Depression: (6) Fibromyalgia: Plan: Continue duloxetine, bupropion, pregabalin (7) Hypothyroidism: Plan: Continue levothyroxine DVT Prophylaxis SCDs Admit med surg Full Code as per discussion with pt Follows with Theresa TADEO for routine care Pt was seen and care coordinated with Dr Medley See addendum I spent a total of 85 minutes reviewing notes, outpatient records, labs, medication, coordinating, documenting and providing care for this patient excluding time spent in the performance of separately billed services. History of Present Illness Chief Complaint: Abdominal pain Primary Care Provider: SHWETHA Salcido Patient is 59-year-old female with PMH anxiety, depression, fibromyalgia, chronic low back pain, subclinical hypothyroidism, tobacco use, medical marijuana use, presented to ER with complaint of right upper quadrant pain x 3 days. Patient states 3 days ago started with right upper quadrant pain that radiated to right lower quadrant. She describes pain as sharp and is aggravated with inspiration and any movement. Also reports nausea. Reports 2 episodes of vomiting last episode this morning after taking her medications with coffee. Denies any hematemesis or hematochezia. Last BM reported 2 days ago and denies any melena or hematochezia. She states has low back pain that she feels she aggravated a couple of weeks ago helping to assist lifting her mother in law. She reports following with Dr Kwok and was to have MRI spine on 11/07/24 to further evaluate. She denies any noted fever or chills, prior food intolerances, diarrhea, TORREZ, dizziness, CP, SOB, orthopnea, palpitations, cough, sore throat, rhinorrhea, paresthesias, extremity weakness, extremity edema, rashes, urinary symptoms. Allergies Allergy/AdvReac Type Severity Reaction Status Date / Time morphine Allergy Hives Verified 02/04/24 10:11 Home Medications Medication Instructions Recorded Confirmed Type duloxetine 60 mg capsule,delayed 60 mg PO QAM 06/21/20 11/06/24 History release (Cymbalta) levothyroxine 25 mcg tablet 25 mcg PO QAM 06/21/20 11/06/24 History pregabalin 150 mg capsule (Lyrica) 150 mg PO BID 06/21/20 11/06/24 History acetaminophen 500 mg tablet 1,000 mg PO Q8H PRN pain 01/11/24 11/06/24 History trazodone 100 mg tablet 150 mg PO HS 02/04/24 11/06/24 History bupropion HCl 150 mg 24 hr tablet, 150 mg PO DAILY 11/06/24 11/06/24 History extended release duloxetine 30 mg capsule,delayed 30 mg PO DAILY 11/06/24 11/06/24 History release Past Med/Surg History Problem List Right sided abdominal pain Intra-abdominal abscess (Acute) Acute cholecystitis (Acute) Medical History Anxiety Depression Hypothyroidism Fibromyalgia Chronic back pain Cervical cancer Age 20s s/p hysterectomy Temporomandibular joint disorder + clicking, no locking Seizure Childhood, 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 Seasonal allergies Surgical History S/P spinal surgery History of total bilateral knee replacement B/L TKA (07/23/20): SAB at L4-5, 2 attempts + regional at [facility] History of colonoscopy History of tooth extraction Hx of bilateral oophorectomy History of hysterectomy Hx of eye surgery "for lowering pressure in both eyes" Fusion of spine C-spine ROM limitations Family History Other Cancer Social History (Updated 11/06/24 @ 14:02 by Anayeli Mondragon PA-C) Smoking Status: Current every day smoker Tobacco Type: Cigarettes Cigarettes Per Day: 1 ppd; Second Hand Exposure: No; Do You Dip or Chew Tobacco: No; Hx Alcohol Use: Yes Alcohol type: wine Hx Substance Use: Yes Prescribed Medications: Marijuana Prescribed Medications Comment: vapes medical marijuana three times a day Substance Use Type Other:: medical marijuana-advised Preferred Language: Greek Communication Ability: Effective Head Boys Tennis Coach Required: No Beliefs That Will Affect Care: None marital status: Current Living Situation: Spouse Feels Safe at Home: Yes Assistive Devices: None Review of Systems Review of Systems: All systems reviewed & are unremarkable except as noted in HPI & below Physical Exam Physical Exam: General: no distress, WDWN Head: normocephalic, atraumatic Eyes: conjunctiva non-injected, anicteric ENT: normal inspection external ears, nose, mucous membranes moist Neck: supple, trachea midline Lungs: clear, no respiratory distress, no wheezing/rhonchi/rales CV: RRR, no pretibial edema Abd: normal BS, distended, +tenderness to palpation RUQ, RLL, +rebound and guarding Ext: no cyanosis, no calf tenderness Neuro: A&O x 3, no focal deficits noted, normal affect Skin: warm, dry Results & Data Results & Data Vital Signs (Past 12 Hours) Vital Signs Temp Pulse Pulse Resp BP BP Pulse Ox 11/06/24 12:57 74 18 125/83 97 11/06/24 11:30 81 18 127/83 98 11/06/24 09:48 36.6 C 85 18 129/85 98 O2 Del Method 12/30/24 12:57 Room Air 11/06/24 11:30 Room Air 11/06/24 09:48 Room Air Laboratory Results Short CBC 11/06/24 Range/Units 11:15 WBC 7.95 (4.8-10.8) K/ul Hgb 13.4 (12.0-16.0) g/dl Hct 39.9 (37.0-47.0) % Plt Count 349 (130-400) K/uL BMP 11/06/24 11:15 Sodium 135 L Potassium 4.1 Chloride 100 Carbon Dioxide 28 BUN 8 Creatinine 0.73 Glucose 106 H Calcium 9.6 Liver Function 11/06/24 Range/Units 11:15 Total Bilirubin 0.9 (0.2-1.0) mg/dl AST 56 H (13-39) U/L ALT 46 (7-52) U/L Alkaline Phosphatase 231 H (34-104) U/L Albumin 3.9 (3.4-5.0) gm/dl Urine 11/06/24 Range/Units 11:27 Urine Color Dark Yellow Urine Appearance Cloudy A (Clear) Urine pH 5.5 (4.5-7.5) Ur Specific [place] 1.025 (1.000-1.030) Urine Protein 1+ H (Negative) Urine Glucose (UA) Negative (Negative) Diagnostic Findings Abdomen/Pelvis CT 11/06/24 10:57 CT abd pelvis IV con only CLINICAL HISTORY: RIGHT ABD PAIN X 3 DAYS TECHNIQUE: Helical axial images of the abdomen and pelvis were obtained and displayed. Automated dose lowering techniques and/or adjustment according to patient size were utilized for this exam. This exam was performed with intravenous contrast. CT DOSE: 1066.48 mGy.cm COMPARISON: None available at the time of this dictation. FINDINGS: Lower chest: Bibasilar atelectasis versus scarring is seen. Liver: A complex fluid collection in the gallbladder fossa may represent intrahepatic abscess. Gallbladder and biliary tree: Thickening of the gallbladder wall is seen with surrounding fluid and complex surrounding enhancing fluid collections. Intrahepatic bile duct dilation is seen. Pancreas: Unremarkable, no focal lesions. Spleen: Unremarkable. Adrenals: Unremarkable. Kidneys and ureters: Unremarkable. Bladder: Limited evaluation due to underdistention. Reproductive organs: Patient is status post hysterectomy. Bowel: Unremarkable. Lymph nodes Retroperitoneal: Subcentimeter lymph nodes are noted. Pelvic: Unremarkable. Mesenteric: Subcentimeter lymph nodes are noted. Peritoneum: Complex enhancing pericholecystic fluid collection is seen. There is surrounding fat stranding. Vessels: Atherosclerotic calcifications are seen. Abdominal wall: Unremarkable. Bones: Posterior fixation hardware spans L4-L5. IMPRESSION: Findings are compatible with acute cholecystitis with concern for surrounding abscess formation in the liver and peritoneum.. ACT 112: Negative or not required by law. Electronically signed by: Volodymyr Koch M.D. 11/06/2024 12:31 PM Supervising Physician Co-Signing Physician Notes Date of Service: November 06, 2024 Attending Addendum: Case reviewed with the advanced practitioner. I have personally performed a history and physical examination on the patient. I have reviewed the advanced practitioner's documentation on the date of service referenced in note, and I agree with, and take responsibility for the plan of care. please refer to her notes for full details patient seen and examined, records reviewed by myself as well on exam, patient seen resting in bed, comfortable Dilaudid relieving RUQ pain no other symptoms VS noted and reviewed oriented x3, not in distress, speaks in sentences with no effort nor accessory muscle use normal rate, regular rhythm, no murmurs clear breath sounds bilaterally non distended, soft, (+) tenderness on all quadrants no bipedal edema, erythema, warmth no neuro deficits all labs, imaging noted and reviewed ASSESSMENT AND PLAN> ACUTE CHOLECYSTITIS WITH ABSCESS discussed with Gen Surg plan for possible surgical intervention tomorrow NPO, IV fluids, Zosyn PRN Dilaudid for pain other diagnoses and plan of care as per advanced practitioner's notes Ludin Medley MD
[2024-11-06] MEDS: VANCOMYCIN HCL 1,500 MG in SODIUM CHLORIDE 0.9% 500 ML IV ONE (13:41)
--- NOTE | 2024-11-06 13:56 | Surgery Consultation ---
<Statement entered by Miguel Angel Chen DO - 11/06/24 17:42> I have seen and examined this patient. I agree with this plan Date of Consultation November 06, 2024 Assessment & Plan (1) Acute cholecystitis: Patient is a 59-year-old female who presented to the ED with complaints of abdominal pain located in her right upper quadrant that started over the weekend. Patient has had associated nausea and 2 episodes of emesis since the onset of her symptoms. Patient was worked up in the emergency department and was found to have slightly elevated AST at 56 and Alk Phos of 231, however WBC was wnl. CT findings concerning for acute cholecystitis along with concern of surrounding abscess formation in the liver and peritoneum. Due to CT findings we did reach out to interventional radiology, however they do not recommend drainage at this time. After further discussion and review of imaging, it did appear on CT there was ductal dilation. For this reason, MRCP imaging was ordered to further evaluate for any possible obstruction and need for any GI intervention. MRCP imaging with results of cholelithiasis, gallbladder wall thickening, and pericholecystic infiltration consistent with acute cholecystitis and a complex pericholecystic fluid collection measuring 6.5 x 4.4 x 4.5 cm suspicious for abscess that could represent perforated cholecystitis. There is also some intra and extrahepatic biliary ductal dilation, however no bile duct calculi were identified and could be secondary to inflammation due to pericholecystic fluid collection (underlying neoplastic etiology is considered less likely but recommend f/u imaging to ensure resolution of biliary ductal dilation). Patient's case was discussed in detail with attending surgeon on-call, Dr. Ade Vanessa, who also evaluated the patient at bedside. From a surgical standpoint recommend the following: -Clear liquid diet for now, NPO after midnight -Continue IV antibiotics - patient has been started on Vanco and Zosyn in the ED -Repeat LFTs in the AM and will continue to trend WBC -Pain control -Medical management per primary team, surgery will continue to follow closely. Surgical team will follow up in the morning to further determine final surgical plan. History of Present Illness Reason for Consultation: acute cholecystitis and abscess History of Present Illness Patient is a 59-year-old female presented to the emergency department for complaints of abdominal pain. Patient states that the pain started over the weekend. States the pain is located in her right upper quadrant and does radiate down into her lower abdomen along with her back at times. Of note, the patient does have chronic back pain and has had surgery by Dr. Kwok in the past. Patient states that she does take care of her [id number] at home, and several weeks ago did injure her back while trying to lift her, she states she was seen by Dr. Kwok's team and is supposed to undergo MRI imaging this week to further evaluate her back pain. However, patient states that over the weekend is when she developed the abdominal pain. Patient states that she has had decrease oral intake and has had associated nausea and episodes of emesis over the last 2 days. She states the pain is constant and she denies ever having pain like this in the past. She denies any new onset of fevers, chills, or changes in urinary or bowel habits since the onset of her symptoms. Patient does have a past surgical history of hysterectomy in the past due to cancer many years ago. The patient was worked up in the emergency department and was found to have CT findings concerning for acute cholecystitis with surrounding abscess in the liver and peritoneum. Patient was seen and evaluated this afternoon at bedside in the emergency department. Patient is resting comfortably in bed, stable vital signs, is in no acute distress. She is nontoxic-appearing, afebrile, abdomen is soft but diffusely tender throughout with the most pain elicited in the right upper quadrant. Allergies Allergy/AdvReac Type Severity Reaction Status Date / Time morphine Allergy Hives Verified 02/04/24 10:11 Home Medications Medication Instructions Recorded Confirmed Type duloxetine 60 mg capsule,delayed 60 mg PO QAM 06/21/20 11/06/24 History release (Cymbalta) levothyroxine 25 mcg tablet 25 mcg PO QAM 06/21/20 11/06/24 History pregabalin 150 mg capsule (Lyrica) 150 mg PO BID 06/21/20 11/06/24 History acetaminophen 500 mg tablet 1,000 mg PO Q8H PRN pain 01/11/24 11/06/24 History trazodone 100 mg tablet 150 mg PO HS 02/04/24 11/06/24 History bupropion HCl 150 mg 24 hr tablet, 150 mg PO DAILY 11/06/24 11/06/24 History extended release duloxetine 30 mg capsule,delayed 30 mg PO DAILY 11/06/24 11/06/24 History release Patient History Medical History Anxiety Depression Hypothyroidism Fibromyalgia Chronic back pain Cervical cancer Age 20s s/p hysterectomy Temporomandibular joint disorder + clicking, no locking Seizure Childhood, 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 Seasonal allergies Surgical History S/P spinal surgery History of total bilateral knee replacement B/L TKA (07/23/20): SAB at L4-5, 2 attempts + regional at [facility] History of colonoscopy History of tooth extraction Hx of bilateral oophorectomy History of hysterectomy Hx of eye surgery "for lowering pressure in both eyes" Fusion of spine C-spine ROM limitations Family History Other Cancer Social History (Updated 11/06/24 @ 14:02 by Anayeli Mondragon PA-C) Smoking Status: Current every day smoker Tobacco Type: Cigarettes Cigarettes Per Day: 1 ppd; Second Hand Exposure: No; Do You Dip or Chew Tobacco: No; Hx Alcohol Use: Yes Alcohol type: wine Hx Substance Use: Yes Prescribed Medications: Marijuana Prescribed Medications Comment: vapes medical marijuana three times a day Substance Use Type Other:: medical marijuana-advised Preferred Language: Indonesian Communication Ability: Effective 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 Skin: no rashes, warm and dry Psychiatric: A+Ox3, euthymic affect Results & Data Vital Signs (Past 12 Hours) Vital Signs Temp Pulse Pulse Resp BP BP Pulse Ox 11/06/24 12:57 74 18 125/83 97 11/06/24 11:30 81 18 127/83 98 11/06/24 09:48 36.6 C 85 18 129/85 98 O2 Del Method 11/06/24 12:57 Room Air 11/06/24 11:30 Room Air 11/06/24 09:48 Room Air Diagnostic Findings CT abd pelvis IV con only CLINICAL HISTORY: RIGHT ABD PAIN X 3 DAYS TECHNIQUE: Helical axial images of the abdomen and pelvis were obtained and displayed. Automated dose lowering techniques and/or adjustment according to patient size were utilized for this exam. This exam was performed with intravenous contrast. CT DOSE: 1066.48 mGy.cm COMPARISON: None available at the time of this dictation. FINDINGS: Lower chest: Bibasilar atelectasis versus scarring is seen. Liver: A complex fluid collection in the gallbladder fossa may represent intrahepatic abscess. Gallbladder and biliary tree: Thickening of the gallbladder wall is seen with surrounding fluid and complex surrounding enhancing fluid collections. Intrahepatic bile duct dilation is seen. Pancreas: Unremarkable, no focal lesions. Spleen: Unremarkable. Adrenals: Unremarkable. Kidneys and ureters: Unremarkable. Bladder: Limited evaluation due to underdistention. Reproductive organs: Patient is status post hysterectomy. Bowel: Unremarkable. Lymph nodes Retroperitoneal: Subcentimeter lymph nodes are noted. Pelvic: Unremarkable. Mesenteric: Subcentimeter lymph nodes are noted. Peritoneum: Complex enhancing pericholecystic fluid collection is seen. There is surrounding fat stranding. Vessels: Atherosclerotic calcifications are seen. Abdominal wall: Unremarkable. Bones: Posterior fixation hardware spans L4-L5. IMPRESSION: Findings are compatible with acute cholecystitis with concern for surrounding abscess formation in the liver and peritoneum. US gallbladder CLINICAL HISTORY: Right upper quadrant pain. COMPARISON STUDY: CT of the abdomen and pelvis performed earlier today. FINDINGS: No hepatic lesions are identified. Mild biliary ductal dilatation shown on CT performed earlier today is not well visualized by sonography. The pancreas is obscured. There is no right hydronephrosis. Multiple shadowing gallstones within the gallbladder are present. The gallbladder wall is significantly thickened, measuring 9 mm in thickness. The pericholecystic fluid collection shown on CT is not well visualized by sonography. IMPRESSION: 1. Cholelithiasis with gallbladder wall thickening suggestive of acute cholecystitis. The pericholecystic fluid collection shown on CT is not well visualized by sonography but raises the possibility of perforated cholecystitis. 2. Mild biliary ductal dilatation better depicted by CT. MRCP CLINICAL HISTORY: Acute cholecystitis w/abscess, eval biliary dilation TECHNIQUE: Utilizing a 1.5 Nayana magnet and dedicated coil, multiplanar, multiecho imaging of the upper abdomen was performed utilizing heavily T2 weighted pulsing sequences without IV contrast. COMPARISON STUDY: CT of the abdomen and pelvis and right upper quadrant ultrasound performed earlier today. FINDINGS: There is mild intra and extrahepatic biliary ductal dilatation. No common bile duct calculi are identified. Narrowing of the common hepatic duct is noted. No well-defined masses are identified on this exam although this exam is compromised by motion artifact. There are numerous gallstones within the gallbladder. Gallbladder wall thickening is noted. Moderate pericholecystic inflammation is present. In addition, there is a complex 6.5 x 4.4 x 4.5 cm p ericholecystic fluid collection which contains a fluid fluid level. Fluid within the dependent aspect of this collection demonstrates restricted diffusion. There is mild dilatation of the pancreatic duct, measuring 4 mm in caliber. No hepatic lesions are identified on unenhanced exam. The spleen, adrenal glands, kidneys are unremarkable on unenhanced exam. There is no hydronephrosis. L4-S1 decompr ession and fusion is present. IMPRESSION: 1. Cholelithiasis with gallbladder wall thickening and pericholecystic infiltration consistent with acute cholecystitis. Complex pericholecystic fluid collection which measures 6.5 x 4.4 x 4.5 cm suspicious for an abscess. The findings may represent perforated cholecystitis. 2. Mild intra and extrahepatic biliary ductal dilatation. No common bile duct calculi identified. Narrowing of the common hepatic duct, likely related to inflammation or the pericholecystic fluid collection. An underlying neoplastic etiology is considered much less likely however imaging follow up to ensure resolution of the biliary ductal dilatation is recommended. 3. Mild dilatation of the pancreatic duct. PG Care Time/CCT Total # of Minutes Spent Total Time Spent with Patient: Total time spent is greater than 50% in coordination of care (as documented) at patient's floor/unit and/or counseling patient: [place] [address] IN/OBS CONSULT LVL 4,60M Patient Type New History Problem Focused Exam Problem Focused Medical Decision Making Straight Forward Diagnoses Acute cholecystitis K81.0
--- NOTE | 2024-11-06 14:39 | Ultrasound Report ---
US gallbladder CLINICAL HISTORY: Right upper quadrant pain. COMPARISON STUDY: CT of the abdomen and pelvis performed earlier today. FINDINGS: No hepatic lesions are identified. Mild biliary ductal dilatation shown on CT performed ear lier today is not well visualized by sonography. The pancreas is obscured. There is no right hydronep hrosis. Multiple shadowing gallstones within the gallbladder are present. The gallbladder wall is sig nificantly thickened, measuring 9 mm in thickness. The pericholecystic fluid collection shown on CT i s not well visualized by sonography. IMPRESSION: 1. Cholelithiasis with gallbladder wall thickening suggestive of acute cholecystitis. The pericholecy stic fluid collection shown on CT is not well visualized by sonography but raises the possibility of perforated cholecystitis. 2. Mild biliary ductal dilatation better depicted by CT. ACT 112: Negative or not required by law. Electronically signed by: Manish Reyna M.D. 11/06/2024 2:36 PM
[2024-11-06] MEDS ORDERED: HYDROmorphone INJ 0.5 MG/0.5 ML SYR IV PRN (15:08)
[2024-11-06] MEDS: HYDROmorphone INJ 0.5 MG/0.5 ML SYR IV STA ×2 (15:22→18:20)
--- NOTE | 2024-11-06 16:13 | Magnetic Resonance Report ---
MRCP CLINICAL HISTORY: Acute cholecystitis w/abscess, eval biliary dilation TECHNIQUE: Utilizing a 1.5 Nayana magnet and dedicated coil, multiplanar, multiecho imaging of the upp er abdomen was performed utilizing heavily T2 weighted pulsing sequences without IV contrast. COMPARISON STUDY: CT of the abdomen and pelvis and right upper quadrant ultrasound performed earlier today. FINDINGS: There is mild intra and extrahepatic biliary ductal dilatation. No common bile duct calculi are identified. Narrowing of the common hepatic duct is noted. No well-defined masses are identified on this exam although this exam is compromised by motion artifact. There are numerous gallstones wit hin the gallbladder. Gallbladder wall thickening is noted. Moderate pericholecystic inflammation is p resent. In addition, there is a complex 6.5 x 4.4 x 4.5 cm pericholecystic fluid collection which con tains a fluid fluid level. Fluid within the dependent aspect of this collection demonstrates restrict ed diffusion. There is mild dilatation of the pancreatic duct, measuring 4 mm in caliber. No hepatic lesions are identified on unenhanced exam. The spleen, adrenal glands, kidneys are unremarkable on un enhanced exam. There is no hydronephrosis. L4-S1 decompression and fusion is present. IMPRESSION: 1. Cholelithiasis with gallbladder wall thickening and pericholecystic infiltration consistent with a cute cholecystitis. Complex pericholecystic fluid collection which measures 6.5 x 4.4 x 4.5 cm suspic ious for an abscess. The findings may represent perforated cholecystitis. 2. Mild intra and extrahepatic biliary ductal dilatation. No common bile duct calculi identified. John rowing of the common hepatic duct, likely related to inflammation or the pericholecystic fluid collec tion. An underlying neoplastic etiology is considered much less likely however imaging follow up to e nsure resolution of the biliary ductal dilatation is recommended. 3. Mild dilatation of the pancreatic duct. ACT 112: Negative or not required by law. Electronically signed by: Manish Reyna M.D. 11/06/2024 4:12 PM
--- NOTE | 2024-11-06 18:07 | Communication Note ---
Date of Service: November 06, 2024 Attending Addendum: Case reviewed with the advanced practitioner. I have personally performed a history and physical examination on the patient. I have reviewed the advanced practitioner's documentation on the date of service referenced in note, and I agree with, and take responsibility for the plan of care. please refer to her notes for full details patient seen and examined, records reviewed by myself as well on exam, patient seen resting in bed, comfortable Dilaudid relieving RUQ pain no other symptoms VS noted and reviewed oriented x3, not in distress, speaks in sentences with no effort nor accessory muscle use normal rate, regular rhythm, no murmurs clear breath sounds bilaterally non distended, soft, (+) tenderness on all quadrants no bipedal edema, erythema, warmth no neuro deficits all labs, imaging noted and reviewed ASSESSMENT AND PLAN> ACUTE CHOLEC other diagnoses and plan of care as per advanced practitioner's notes Ludin Medley MD
[2024-11-06] MEDS ORDERED: POLYETHYLENE (MIRALAX) 17 GM PACK PO PRN (18:16)
[2024-11-06] MEDS ORDERED: MAGNESIUM HYDROXIDE SUSP 30 ML UDC PO PRN (18:16)
[2024-11-06] MEDS: oxyCODONE HCL IR 5 MG TAB (IMMEDIATE RELEASE) PO ONE (18:47)
[2024-11-06] MEDS: PIPERACILLIN/TAZOBACTAM 4.5 GM/100 ML BAG IV SCH (19:34)
[2024-11-06] MEDS: PREGABALIN 150 MG CAP PO SCH (21:54)
[2024-11-06] MEDS: traZODone HCL 50 MG TAB PO SCH (21:54)
[2024-11-06] MEDS: ACETAMINOPHEN 325 MG TAB PO PRN (21:54)
[2024-11-07] MEDS: oxyCODONE HCL IR 5 MG TAB (IMMEDIATE RELEASE) PO PRN (02:57)
[2024-11-07] MEDS: LEVOTHYROXINE SODIUM 25 MCG TABLET PO SCH (05:42)
[2024-11-07] MEDS: DULoxetine HCL 30 MG CAP PO SCH (08:14)
[2024-11-07] MEDS: DULoxetine HCL 60 MG CAP PO SCH (08:14)
[2024-11-07 08:58] LABS: Hematocrit (blood only) 33.2 % (37.0-47.0); Hemoglobin 11.1 g/dl (12.0-16.0); Mean Corpuscular Hemoglobin 30.9 pg (25.0-34.0); Mean Corpuscular Hgb Conc 33.4 g/dL (32.0-36.0); Mean Corpuscular Volume 92.5 fL (80.0-100.0); Mean Platelet Volume 10.2 fL (9.4-12.4); Platelet Count 297 K/uL (130-400); RDW Coefficient of Variation 12.6 % (11.5-14.5); RDW Standard Deviation 42.5 fL (36.4-46.3); Red Blood Count 3.59 M/uL (4.20-5.40); White Blood Count 6.19 K/ul (4.8-10.8)
[2024-11-07 09:12] LABS: Albumin Globulin Ratio 0.9 (0.9-2); Albumin Level 3.2 gm/dl (3.4-5.0); BUN Creatinine Ratio 9.8 (10-20); Bilirubin,Total 1.1 mg/dl (0.2-1.0); Calcium 8.6 mg/dl (8.6-10.3); Creatinine Clr Calc Pharmacy 94.9 ml/min; Globulin 3.6 gm/dl (2.5-4.0); Total Protein 6.8 gm/dl (6.0-8.3)
[2024-11-07] MEDS: buPROPion XL 150 MG TABCR PO SCH (09:51)
--- NOTE | 2024-11-07 10:27 | Surgery Progress Note ---
Date of Service November 07, 2024 Assessment & Plan (1) Acute cholecystitis: Plan: probable CBD stones dilated ducts and elevated TB GI consult for ERCP (2) Intra-abdominal abscess: Plan: plan IV abx clinically follow, if fails would recommend perc drain lap bryn as outpatient once abscess resolved in 6 weeks or so Admission and Anticipated Discharge Date Admission Date: November 06, 2024 Subjective RUQ pain npo Review of Systems Constitutional: no fever and no chills Respiratory: no cough and no dyspnea Cardiovascular: no chest pain Gastrointestinal: + abdominal pain and + nausea; no vomiti ng Genitourinary: no dysuria Musculoskeletal: + back pain Neurologic: no localized weakness and no generalized weakness Psychiatric: no behavioral changes Physical Exam Constitutional: WD/WN, vitals as above Eyes: PERRL, conjunctivae normal, anicteric sclerae ENMT: external ear and nose normal, oropharynx normal Neck: trachea midline Respiratory: normal respiratory effort, lungs clear to auscultation Cardiovascular: RRR, no murmur, no edema Gastrointestinal (Abdomen): Inspection/Auscultation: abdomen normal to inspection, + abdomen distended and normal bowel sounds Percussion/Palpation: + abdomen tender and abdomen soft; no guarding and abdomen not rigid Musculoskeletal: Head/Neck/Chest: normocephalic and head atraumatic Skin: no rashes, warm and dry Results & Data Vital Signs (Past 12 Hours) Vital Signs Temp Pulse Resp BP Pulse Ox O2 Del Method 11/07/24 07:01 36.7 C 78 14 137/84 95 Room Air Diagnostic Findings MRCP CLINICAL HISTORY: Acute cholecystitis w/abscess, eval biliary dilation TECHNIQUE: Utilizing a 1.5 Nayana magnet and dedicated coil, multiplanar, multiecho imaging of the upper abdomen was performed utilizing heavily T2 weighted pulsing sequences without IV contrast. COMPARISON STUDY: CT of the abdomen and pelvis and right upper quadrant ultrasound performed earlier today. FINDINGS: There is mild intra and extrahepatic biliary ductal dilatation. No common bile duct calculi are identified. Narrowing of the common hepatic duct is noted. No well-defined masses are identified on this exam although this exam is compromised by motion artifact. There are numerous gallstones within the gallbladder. Gallbladder wall thickening is noted. Moderate pericholecystic inflammation is present. In addition, there is a complex 6.5 x 4.4 x 4.5 cm pericholecystic fluid collection which contains a fluid fluid level. Fluid within the dependent aspect of this collection demonstrates restricted diffusion. There is mild dilatation of the pancreatic duct, measuring 4 mm in caliber. No hepatic lesions are identified on unenhanced exam. The spleen, adrenal glands, kidneys are unremarkable on unenhanced exam. There is no hydronephrosis. L4-S1 decompression and fusion is present. IMPRESSION: 1. Cholelithiasis with gallbladder wall thickening and pericholecystic infiltration consistent with acute cholecystitis. Complex pericholecystic fluid collection which measures 6.5 x 4.4 x 4.5 cm suspicious for an abscess. The findings may represent perforated cholecystitis. 2. Mild intra and extrahepatic biliary ductal dilatation. No common bile duct calculi identified. Narrowing of the common hepatic duct, likely related to inflammation or the pericholecystic fluid collection. An underlying neoplastic etiology is considered much less likely however imaging follow up to ensure resolution of the biliary ductal dilatation is recommended. 3. Mild dilatation of the pancreatic duct.
--- NOTE | 2024-11-07 11:45 | Gastrointestinal Consultation ---
Date of Consultation November 07, 2024 Assessment & Plan (1) Bile duct abnormality: Discussed with attending GI physician Dr. Sawyer who advised on the plan of care. Ductal abnormalities may be reactive to the gallbladder process occurring rather than agency sales representative of a true biliary obstruction. Would obtain a HIDA without CCK for further assessment, a CA 19-9, as well as a CEA. Would defer gallbladder issues to surgery and consider IR for abscess drainage. Supervising Physician Co-Signing Physician Notes Patient examined at the bedside, present. He is concerned as his numerous questions. Reviewed findings with nurse practitioner reviewed imaging findings and labs I believe this patient predominantly is in acute cholecystitis with gallbladder abscess. This may account for the slight biliary dilatation. I do not believe this represents a common duct stone. Will proceed with a HIDA scan to evaluate biliary patency. Patient should be considered for operative intervention or IRC drainage, surgery and IR consultation placed Addendum HIDA scan shows patent biliary duct, nonvisualization of the gallbladder consistent with acute cholecystitis. Management per surgery and IR. History of Present Illness Reason for Consultation: Abnormal biliary findings Attending Physician: Vahid Lemus MD History of Present Illness Patient is 59-year-old female with PMH anxiety, depression, fibromyalgia, chronic low back pain, subclinical hypothyroidism, tobacco use, medical marijuana use, presented to ER with complaint of right upper quadrant pain x 3 days. She notes that the pain is sharp and worse with movement/inspiration. She notes nausea and vomiting yesterday. She denies GI bleeding. She has a history of chronic back pain & fibromyalgia. She had LFTs obtained in the ED that indicate a T bili of 1.1, AST 81, ALT 65, AP 256. Gallbladder US as follows: 1. Cholelithiasis with gallbladder wall thickening suggestive of acute cholecystitis. The pericholecystic fluid collection shown on CT is not well visualized by sonography but raises the possibility of perforated cholecystitis. 2. Mild biliary ductal dilatation better depicted by CT. Abdominal CT as follows: Findings are compatible with acute cholecystitis with concern for surrounding abscess formation in the liver and peritoneum. MRCP as follows: 1. Cholelithiasis with gallbladder wall thickening and pericholecystic infiltration consistent with acute cholecystitis. Complex pericholecystic fluid collection which measures 6.5 x 4.4 x 4.5 cm suspicious for an abscess. The findings may represent perforated cholecystitis. 2. Mild intra and extrahepatic biliary ductal dilatation. No common bile duct calculi identified. Narrowing of the common hepatic duct, likely related to inflammation or the pericholecystic fluid collection. An underlying neoplastic etiology is considered much less likely however imaging follow up to ensure resolution of the biliary ductal dilatation is recommended. 3. Mild dilatation of the pancreatic duct. Patient notes persistece of abdominal pain. She is on IV Zosyn. General surgery is following. Allergies Allergy/AdvReac Type Severity Reaction Status Date / Time morphine Allergy Hives Verified 02/04/24 10:11 Home Medications Medication Instructions Recorded Confirmed Type duloxetine 60 mg capsule,delayed 60 mg PO QAM 06/21/20 11/06/24 History release (Cymbalta) levothyroxine 25 mcg tablet 25 mcg PO QAM 06/21/20 11/06/24 History pregabalin 150 mg capsule (Lyrica) 150 mg PO BID 06/21/20 11/06/24 History acetaminophen 500 mg tablet 1,000 mg PO Q8H PRN pain 01/11/24 11/06/24 History trazodone 100 mg tablet 150 mg PO HS 02/04/24 11/06/24 History bupropion HCl 150 mg 24 hr tablet, 150 mg PO DAILY 11/06/24 11/06/24 History extended release duloxetine 30 mg capsule,delayed 30 mg PO DAILY 11/06/24 11/06/24 History release Patient History Medical History Anxiety Depression Hypothyroidism Fibromyalgia Chronic back pain Cervical cancer Age 20s s/p hysterectomy Temporomandibular joint disorder + clicking, no locking Seizure Childhood, 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 Seasonal allergies Surgical History S/P spinal surgery History of total bilateral knee replacement B/L TKA (07/23/20): SAB at L4-5, 2 attempts + regional at [facility] History of colonoscopy History of tooth extraction Hx of bilateral oophorectomy History of hysterectomy Hx of eye surgery "for lowering pressure in both eyes" Fusion of spine C-spine ROM limitations Family History Other Cancer Social History Smoking Status: Current every day smoker Tobacco Type: Cigarettes Cigarettes Per Day: 1 ppd; Second Hand Exposure: No; Do You Dip or Chew Tobacco: No; Tobacco Cessation Education Requested by Patient: No Hx Alcohol Use: Yes Alcohol type: wine Hx Substance Use: Yes Prescribed Medications: Marijuana Prescribed Medications Comment: vapes medical marijuana three times a day Substance Use Type Other:: medical marijuana Preferred Language: Armenian Communication Ability: Effective Shank Boner Required: No Beliefs That Will Affect Care: None marital status: Current Living Situation: Spouse Other Information That Helps Us Care for You: No Feels Safe at Home: Yes Safety Concerns: Feels Safe At This Time Assistive Devices: None Review of Systems Constitutional: no fever and no chills Respiratory: no cough and no dyspnea Cardiovascular: no chest pain Gastrointestinal: + abdominal pain Physical Exam Constitutional: well developed Respiratory: normal respiratory effort Gastrointestinal (Abdomen): normal bowel sounds, soft, nontender, no hepatosplenomegaly Psychiatric: Orientation: alert and oriented x 3 Results & Data Vital Signs (Past 12 Hours) Vital Signs Temp Pulse Resp BP Pulse Ox O2 Del Method 11/07/24 07:01 36.7 C 78 14 137/84 95 Room Air PG Care Time/CCT Total # of Minutes Spent Total Time Spent with Patient: Total time spent is greater than 50% in coordination of care (as documented) at patient's floor/unit and/or counseling patient: Coding Level of Care Code 88463 IN/OBS CONSULT LVL 4,60M Diagnoses Bile duct abnormality K83.9
--- NOTE | 2024-11-07 14:19 | Hospitalist Progress Note ---
Date of Service November 07, 2024 Assessment & Plan (1) Acute cholecystitis: (2) Intra-abdominal abscess: (3) Right sided abdominal pain: Plan: Patient is 59-year-old female with PMH anxiety, depression, fibromyalgia, chronic low back pain, subclinical hypothyroidism, tobacco use, medical marijuana use, presented to ER with complaint of sharp RUQ pain radiates to RLL with nausea and vomiting x 3 days. Acute cholecystitis Intra-abdominal abscess Suspected perforated cholecystitis/Peritonitis --CT ABD:Findings are compatible with acute cholecystitis with concern for surrounding abscess formation in the liver and peritoneum.. --Gall Bladder USD:Cholelithiasis with gallbladder wall thickening suggestive of acute cholecystitis. The pericholecystic fluid collection shown on CT is not well visualized by sonography but raises the possibility of perforated cholecystitis. Mild biliary ductal dilatation better depicted by CT. --MRCP:Cholelithiasis with gallbladder wall thickening and pericholecystic infiltration consistent with acute cholecystitis. Complex pericholecystic fluid collection which measures 6.5 x 4.4 x 4.5 cm suspicious for an abscess. The findings may represent perforated cholecystitis. Mild intra and extrahepatic biliary ductal dilatation. No common bile duct calculi identified. Narrowing of the common hepatic duct, likely related to inflammation or the pericholecystic fluid collection. An underlying neoplastic etiology is considered much less likely however imaging follow up to ensure resolution of the biliary ductal dilatation is recommended. Mild dilatation of the pancreatic duct. -- Transaminitis likely due to above. R/O Obstruction --Blood cultures pending --Continue bowel rest, IV Zosyn, IV fluids Pain control as needed --CA 19-9 pending --CEA 2.8 --Surgery, gastroenterology on board -- Monitor LFTs Abnormal urinalysis Rule out UTI Presently on Zosyn as above Follow cultures (4) Anxiety: (5) Depression: (6) Fibromyalgia: Plan: Continue duloxetine, bupropion, pregabalin (7) Hypothyroidism: Plan: Continue levothyroxine DVT Prophylaxis SCDs for now Admission and Anticipated Discharge Date Admission Date: November 06, 2024 Subjective Patient is seen and examined at bedside States having nausea, vomiting, abdominal pain Denies any dyspnea, chest pain, dizziness No other complaints today Review of Systems Review of Systems: All systems reviewed & are unremarkable except as noted in Subjective Physical Exam Physical Exam: Physical Exam: Vitals signs as noted above General Appearance:Obese, no apparent distress Head: normocephalic, Atraumatic Eyes: normal inspection, EOMI Neck: supple, Trachea midline Respiratory/Chest: Normal breath sounds, CTA, No accessory muscle use Cardiovascular: S1, S2, No murmur Abdomen/GI:Soft, generalized tender, Bowel sounds present,+voluntary guarding Extremities/Musculoskeletal:normal inspection, Trace edema Neurologic/Psych:AAOX3, grossly no focal neurological deficits Skin: normal color, warm Results & Data Results & Data Vital Signs (Past 12 Hours) Vital Signs Temp Pulse Resp BP Pulse Ox O2 Del Method 11/07/24 07:01 36.7 C 78 14 137/84 95 Room Air Laboratory Results Short CBC 11/07/24 Range/Units 08:14 WBC 6.19 (4.8-10.8) K/ul Hgb 11.1 L (12.0-16.0) g/dl Hct 33.2 L (37.0-47.0) % Plt Count 297 (130-400) K/uL BMP 11/07/24 08:14 Sodium 139 Potassium 4.0 Chloride 105 Carbon Dioxide 28 BUN 6 Creatinine 0.61 Glucose 109 H Calcium 8.6 Liver Function 11/07/24 Range/Units 08:14 Total Bilirubin 1.1 H (0.2-1.0) mg/dl AST 81 H (13-39) U/L ALT 65 H (7-52) U/L Alkaline Phosphatase 256 H (34-104) U/L Albumin 3.2 L (3.4-5.0) gm/dl
[2024-11-07] MEDS: HYDROmorphone INJ 0.5 MG/0.5 ML SYR IV PRN (15:39)
--- NOTE | 2024-11-07 18:16 | Nuclear Medicine Report ---
EXAM: NM Hepatobiliary Scan INDICATION: Cholelithiasis. Elevated bilirubin. TECHNIQUE: Frontal dynamic images of the abdomen and pelvis were obtained over 60 minutes following the intravenous administration of 5.3 mCi Tc99m TERI. Delayed images obtained at 2, 3 and 4 hours. COMPARISON: None available. FINDINGS: Liver: No abnormality noted. Homogeneous radiotracer uptake. Bile ducts: No abnormality noted. Clearly visualized. Gallbladder: Not visualized. Stomach and bowel: No abnormality noted. Radiotracer activity is seen in the small bowel. IMPRESSION: 1. No gallbladder activity noted consistent with cystic duct obstruction/acute cholecystitis. 2. Patent common bile duct. ACT 112: Negative or not required by law. Electronically signed by Deborah Hankins 11-07-2024 6:16 PM
[2024-11-07] MEDS: ONDANSETRON INJ 2 MG/ML 2 ML VIAL IV PRN (20:47)
[2024-11-07] MEDS: SODIUM CHLORIDE 0.9% 1,000 ML IV ONE (20:49)
[2024-11-08 07:02] VITALS: RESP 16
[2024-11-08 08:07] LABS: Hematocrit (blood only) 34.9 % (37.0-47.0); Hemoglobin 11.6 g/dl (12.0-16.0); Mean Corpuscular Hemoglobin 30.7 pg (25.0-34.0); Mean Corpuscular Hgb Conc 33.2 g/dL (32.0-36.0); Mean Corpuscular Volume 92.3 fL (80.0-100.0); Mean Platelet Volume 9.8 fL (9.4-12.4); Platelet Count 310 K/uL (130-400); RDW Coefficient of Variation 12.5 % (11.5-14.5); RDW Standard Deviation 42.3 fL (36.4-46.3); Red Blood Count 3.78 M/uL (4.20-5.40); White Blood Count 5.24 K/ul (4.8-10.8)
[2024-11-08 08:11] LABS: Albumin Globulin Ratio 0.9 (0.9-2); Albumin Level 3.3 gm/dl (3.4-5.0); Bilirubin,Total 0.8 mg/dl (0.2-1.0); Calcium 8.9 mg/dl (8.6-10.3); Creatinine Clr Calc Pharmacy 96.5 ml/min; Globulin 3.7 gm/dl (2.5-4.0); Magnesium 1.9 mg/dl (1.7-2.4); Potassium 3.6 mmol/L (3.5-5.1)
--- NOTE | 2024-11-08 09:21 | Surgery Progress Note ---
Date of Service November 08, 2024 Assessment & Plan (1) Acute cholecystitis: Plan: obstructed cystic duct likely etiology of GB perforation and abscess would recommend perc bryn of gallbladder abscess may also need drainage IV abx; WBC nL may benefit from tertiary center evaluaation for perc drainage surgical intervention possibly in 6-8 weeks (2) Intra-abdominal abscess: Admission and Anticipated Discharge Date Admission Date: November 06, 2024 Subjective still with pain no chills or fever HIDA with obstructed duct MRCP clear by report Review of Systems Constitutional: no fever and no chills Respiratory: no cough and no dyspnea Cardiovascular: no chest pain Gastrointestinal: + abdominal pain and + nausea; no vomiti ng Genitourinary: no dysuria Musculoskeletal: + back pain Neurologic: no localized weakness and no generalized weakness Psychiatric: no behavioral changes Physical Exam Constitutional: WD/WN, vitals as above Eyes: PERRL, conjunctivae normal, anicteric sclerae Respiratory: normal respiratory effort, lungs clear to auscultation Cardiovascular: RRR, no murmur, no edema Gastrointestinal (Abdomen): Inspection/Auscultation: abdomen normal to inspection, + abdomen distended and normal bowel sounds Percussion/Palpation: + abdomen tender and abdomen soft; no guarding and abdomen not rigid Musculoskeletal: Head/Neck/Chest: normocephalic and head atraumatic Skin: no rashes, warm and dry Results & Data Vital Signs (Past 12 Hours) Vital Signs Temp Pulse Resp BP Pulse Ox O2 Del Method 11/08/24 07:00 36.4 C L 78 16 122/77 95 Room Air
--- NOTE | 2024-11-08 11:44 | Hospitalist Progress Note ---
Date of Service November 08, 2024 Assessment & Plan (1) Acute cholecystitis: Plan: Patient had some LFT rise and total bilirubin rise which seem to have improved since yesterday, clinically stable, remained afebrile with no leukocytosis, hemodynamically stable, discussed the plan with surgery. At this time we are going to discussed with interventional radiology tomorrow for placement of percutaneous cholecystostomy or drain to assist with resolution of the abscess, continue with empirical antibiotic with Zosyn. Monitor vital signs, temperature curve and pain control. (2) Intra-abdominal abscess: Plan: Continue with empirical Zosyn, for consult by interventional radiology for cholecystostomy tomorrow. (3) Anxiety: Plan: Continue with home regimen of Wellbutrin and Cymbalta and trazodone. (4) Depression: Plan: Continue with Cymbalta. (5) Fibromyalgia: Plan: Continue duloxetine, bupropion, pregabalin (6) Hypothyroidism: Plan: Continue levothyroxine 25 mcg daily. Plan Continue with empirical antibiotic with Zosyn, will discussed with interventional radiology for placement of cholecystostomy, will put the patient on full liquid diet and n.p.o. after midnight for possible procedure tomorrow. Admission and Anticipated Discharge Date Admission Date: November 06, 2024 Subjective Patient is a 59-year-old very pleasant female with history of anxiety/depression, fibromyalgia and subclinical hypothyroidism who came to the hospital with right upper quadrant pain, patient was found to have acute cholecystitis with pericholecystic abscess. Patient was started on broad- spectrum IV antibiotic, seen by gastroenterology and GI. I communicated with the surgery today about the plan, at this time it seems that patient is planned to continue on IV antibiotic treatment and have percutaneous cholecystostomy/drain placed to assist with resolution of the infection prior to having cholecystectomy. Patient was seen and examined, remained afebrile overnight, no leukocytosis, she had mild LFT rise which seem to have improved since yesterday, total bilirubin was 1.1 yesterday and 0.8 today. Communicated with radiology department, it s eems that we may have an interventional radiologist available tomorrow to do either cholecystostomy or drain placement. Physical Exam Physical Exam: VITALS: Reviewed. WEIGHT/BMI reviewed. GEN: Healthy appearing, well-developed, NAD. CV: RRR, no m/r/g. LUNGS: CTAB, no w/r/c. ABD: Right upper quadrant tenderness, no mass or organomegaly bowel sounds were present. MSK: No deformities, Normal gait. EXT: No clubbing, cyanosis, or edema. NEURO: Ambulating with no limitations. Normal muscle strength and tone. No focal deficits. Results & Data Results & Data Vital Signs (Past 12 Hours) Vital Signs Temp Pulse Resp BP Pulse Ox O2 Del Method 11/08/24 07:00 36.4 C L 78 16 122/77 95 Room Air Laboratory Results Laboratory Results - last 24 hr 11/07/24 11/08/24 12:10 07:24 WBC 5.24 RBC 3.78 L Hgb 11.6 L Hct 34.9 L MCV 92.3 MCH 30.7 MCHC 33.2 RDW Std Deviation 42.3 RDW Coeff of Ni 12.5 Plt Count 310 MPV 9.8 Sodium 141 Potassium 3.6 Chloride 106 Carbon Dioxide 27 Anion Gap 8 BUN 6 Creatinine 0.60 Est Cr Clr Drug Dosing 96.5 eGFR 103.98 BUN/Creatinine Ratio 10.0 Glucose 82 Calcium 8.9 Magnesium 1.9 Total Bilirubin 0.8 AST 46 H ALT 53 H Alkaline Phosphatase 260 H Total Protein 7.0 Albumin 3.3 L Globulin 3.7 Albumin/Globulin Ratio 0.9 Carcinoembryonic Ag 2.8 H CA 19-9 Antigen Pending Diagnostic Findings Hepatobiliary Scan Nuclear Medicine 11/07/24 11:40 EXAM: NM Hepatobiliary Scan INDICATION: Cholelithiasis. Elevated bilirubin. TECHNIQUE: Frontal dynamic images of the abdomen and pelvis were obtained over 60 minutes following the intravenous administration of 5.3 mCi Tc99m TERI. Delayed images obtained at 2, 3 and 4 hours. COMPARISON: None available. FINDINGS: Liver: No abnormality noted. Homogeneous radiotracer uptake. Bile ducts: No abnormality noted. Clearly visualized. Gallbladder: Not visualized. Stomach and bowel: No abnormality noted. Radiotracer activity is seen in the small bowel. IMPRESSION: 1. No gallbladder activity noted consistent with cystic duct obstruction/acute cholecystitis. 2. Patent common bile duct. ACT 112: Negative or not required by law. Electronically signed by Deborah Hankins 11-07-2024 6:16 PM Medications Administered Current Inpatient Medications Acetaminophen (Acetaminophen 325 Mg Tab) 650 mg PO Q4H PRN PRN Reason: pain/fever Stop: 12/06/24 18:15 Last Admin: 11/08/24 10:34 Dose: 650 mg Bupropion HCl (Bupropion Xl 150 Mg Tabcr) 150 mg PO DAILY [facility] Stop: 12/07/24 08:59 Last Admin: 11/08/24 08:09 Dose: 150 mg Duloxetine HCl (Duloxetine Hcl 30 Mg Cap) 30 mg PO DAILY [facility] Stop: 12/07/24 08:59 Last Admin: 11/08/24 08:10 Dose: 30 mg Duloxetine HCl (Duloxetine Hcl 60 Mg Cap) 60 mg PO DAILY [facility] Stop: 12/07/24 08:59 Last Admin: 11/08/24 08:10 Dose: 60 mg Hydromorphone HCl (Hydromorphone Inj 0.5 Mg/0.5 Ml Syr) 0.5 mg IV Q6H PRN PRN Reason: Severe Pain (Scale 7, 8, 9,10) Stop: 11/20/24 18:15 Last Admin: 11/08/24 06:03 Dose: 0.5 mg Piperacillin Sod/Tazobactam Sod (Zosyn) 4.5 gm in 100 mls @ 25 mls/hr IV Q8H [facility]; Protocol Stop: 11/16/24 18:29 Last Admin: 11/08/24 10:34 Dose: 25 mls/hr Sodium Chloride (Nss) 1,000 mls @ 60 mls/hr IV .[id number] ONE Stop: 11/08/24 12:00 Last Admin: 11/07/24 20:49 Dose: 60 mls/hr Levothyroxine Sodium (Levothyroxine Sodium 25 Mcg Tablet) [facility] Stop: 12/07/24 06:29 Last Admin: 11/08/24 06:01 Dose: 25 mcg Magnesium Hydroxide (Magnesium Hydroxide Susp 30 Ml Udc) 30 ml PO Q6H PRN PRN Reason: Constipation Stop: 12/06/24 18:15 Ondansetron HCl (Ondansetron Inj 2 Mg/Ml 2 Ml Vial) 4 mg IV Q6H PRN PRN Reason: Nausea Stop: 12/06/24 18:15 Last Admin: 11/07/24 20:47 Dose: 4 mg Oxycodone HCl (Oxycodone Hcl Ir 5 Mg Tab (Immediate Release)) 5 mg PO Q6H PRN PRN Reason: Moderate Pain (Scale 4, 5, 6) Stop: 11/20/24 18:15 Last Admin: 11/08/24 10:34 Dose: 5 mg Polyethylene Glycol (Polyethylene (Miralax) 17 Gm Pack) 17 gm PO DAILY PRN PRN Reason: Constipation Stop: 12/06/24 18:15 Pregabalin (Pregabalin 150 Mg Cap) 150 mg PO BID [facility] Stop: 12/06/24 20:59 Last Admin: 11/08/24 08:11 Dose: 150 mg Trazodone HCl (Trazodone Hcl 50 Mg Tab) 150 mg PO HS [facility] Stop: 12/06/24 20:59 Last Admin: 11/07/24 20:48 Dose: 150 mg (4) Depression Depression Type: major depressive disorder Major depression recurrence: unspecified whether recurrent Active/Remission status: in remission of unspecified degree Qualified Code(s): F32.5 - Major depressive disorder, single episode, in full remission (6) Hypothyroidism Hypothyroidism type: acquired Qualified Code(s): E03.9 - Hypothyroidism, unspecified
[2024-11-09 08:30] LABS: Basophils # (auto) 0.05 K/uL (0.00-0.20); Basophils % (auto) 0.9 %; Eosinophils # (auto) 0.08 K/uL (0.00-0.50); Eosinophils % (auto) 1.4 %; Hematocrit (blood only) 32.5 % (37.0-47.0); Hemoglobin 10.9 g/dl (12.0-16.0); Immature Granulocytes # (auto) 0.01 K/uL (0.01-0.20); Immature Granulocytes % (auto) 0.2 %; Lymphocytes # (auto) 1.12 K/uL (1.20-3.40); Lymphocytes % (auto) 19.8 %; Mean Corpuscular Hemoglobin 30.4 pg (25.0-34.0); Mean Corpuscular Hgb Conc 33.5 g/dL (32.0-36.0); Mean Corpuscular Volume 90.5 fL (80.0-100.0); Monocytes # (auto) 0.66 K/uL (0.11-0.59); Monocytes % (auto) 11.7 %; Neutrophils # (auto) 3.74 K/uL (1.40-6.50); Platelet Count 310 K/uL (130-400); RDW Coefficient of Variation 12.4 % (11.5-14.5); RDW Standard Deviation 41.1 fL (36.4-46.3); Red Blood Count 3.59 M/uL (4.20-5.40); White Blood Count 5.66 K/ul (4.8-10.8)
[2024-11-09 08:49] LABS: Albumin Globulin Ratio 0.9 (0.9-2); Albumin Level 3.1 gm/dl (3.4-5.0); BUN Creatinine Ratio 7.1 (10-20); Bilirubin,Total 0.5 mg/dl (0.2-1.0); Calcium 8.8 mg/dl (8.6-10.3); Creatinine Clr Calc Pharmacy 82.7 ml/min; Globulin 3.6 gm/dl (2.5-4.0); Potassium 3.3 mmol/L (3.5-5.1); Total Protein 6.7 gm/dl (6.0-8.3)
--- NOTE | 2024-11-09 08:56 | Surgery Progress Note ---
Date of Service November 09, 2024 Assessment & Plan (1) Acute cholecystitis: Plan: HIDA with obstruction of cystic duct; needs a percutaneous cholecystostomy tube lap bryn potentially 6-8 weeks (2) Intra-abdominal abscess: Plan: IV abx potentially IR drainage also Admission and Anticipated Discharge Date Admission Date: November 06, 2024 Subjective feels about the same with pain and nausea Review of Systems Constitutional: no fever and no chills Respiratory: no cough and no dyspnea Cardiovascular: no chest pain Gastrointestinal: + abdominal pain and + nausea; no vomiti ng and no change in bowel habits Genitourinary: no dysuria Neurologic: no localized weakness and no generalized weakness Psychiatric: no behavioral changes Physical Exam Constitutional: WD/WN, vitals as above Eyes: PERRL, conjunctivae normal, anicteric sclerae Respiratory: normal respiratory effort, lungs clear to auscultation Cardiovascular: RRR, no murmur, no edema Gastrointestinal (Abdomen): Inspection/Auscultation: abdomen normal to inspection and normal bowel sounds; abdomen not distended Percussion/Palpation: + abdomen tender and abdomen soft; no guarding and abdomen not rigid Skin: no rashes, warm and dry Results & Data Vital Signs (Past 12 Hours) Vital Signs Temp Pulse Resp BP Pulse Ox O2 Del Method 11/09/24 07:43 36.5 C 63 16 125/74 94 Room Air
--- NOTE | 2024-11-09 11:53 | Discharge Summary ---
Discharge Summary Date of Service November 09, 2024 Principal Dx & Hospital Course #1 = Principal Diagnosis (1) Acute cholecystitis: (2) Intra-abdominal abscess: (3) Anxiety: (4) Depression: (5) Fibromyalgia: (6) Hypothyroidism: Notes For Next Care Provider Medication Changes From Visit Patient to remain on IV antibiotic Admission HPI Per Admitting Provider Patient is 59-year-old female withPatient is a 59-year-old very pleasant female with history of anxiety/depression, fibromyalgia and subclinical hypothyroidism who came to the hospital with right upper quadrant pain, patient was found to have acute cholecystitis with pericholecystic abscess. Patient was started on broad-spectrum IV antibiotic, seen by gastroenterology and GI. I communicated with the surgery today about the plan, at this time it seems that patient is planned to continue on IV antibiotic treatment and have percutaneous cholecystostomy/drain placed to assist with resolution of the infection prior to having cholecystectomy. Patient remain on medical care under conservative management along with surgical team on board, based on my latest conversation, they recommended patient to have IR placed cholecystostomy and possibly abscess drain, I finally was able to speak to radiology team today and they informed me that the procedure is not don e here, I have reached transfer center to arrange for patient's transfer, prior to that I spoke with patient and informed her about the latest developments and she was agreeable with the plan. Admission Exam Per Admitting Provider VITALS: Reviewed. WEIGHT/BMI reviewed. GEN: Healthy appearing, well-developed, NAD. CV: RRR, no m/r/g. LUNGS: CTAB, no w/r/c. ABD: Continues to have some mild right upper quadrant tenderness but no evidence of rebound Updated Medication List Medication Instructions Recorded Confirmed Type duloxetine 60 mg capsule,delayed 60 mg PO QAM 06/21/20 11/06/24 History release (Cymbalta) levothyroxine 25 mcg tablet 25 mcg PO QAM 06/21/20 11/06/24 History pregabalin 150 mg capsule (Lyrica) 150 mg PO BID 06/21/20 11/06/24 History acetaminophen 500 mg tablet 1,000 mg PO Q8H PRN pain 01/11/24 11/06/24 History trazodone 100 mg tablet 150 mg PO HS 02/04/24 11/06/24 History bupropion HCl 150 mg 24 hr tablet, 150 mg PO DAILY 11/06/24 11/06/24 History extended release duloxetine 30 mg capsule,delayed 30 mg PO DAILY 11/06/24 11/06/24 History release Hospital Stay Data Consultations 11/06/24 13:14 ED Decision to Admit Stat 11/06/24 18:16 Consult General Surgery Routine 11/07/24 10:05 Consult Gastroenterology Routine Diagnostic Imagining Performed 11/06/24 10:57 CT abd pelvis IV con only Stat 11/06/24 12:57 US gallbladder Stat 11/06/24 14:43 MR MRCP Stat Pending Results Patient Have Any Pending Studies at Discharge: No Discharge Instructions Given to Patient (Per Discharging Provider) Patient to be transferred to different acute care facility capable of managing percutaneous cholecystostomy and abscess drainage Total Time Total Time Spent Total Time Spent (In Minutes): 45 minutes
[2024-11-09 14:01] VITALS: PULSE 56; TEMP 97.2; O2SAT 92
[2024-11-09 17:59] VITALS: BP 113/75
== END 2024-11-09 19:15 | disposition short-term general hospital (02) | DRG 444 ==
LOC: ED 09:37 → SUATTDRO 17:27 → EDINP 17:27 → 3N 21:20